=== PATIENT | female | born 1975 | race American Indian/Alaskan Native ===

== ENCOUNTER 2017-06-02 03:34 | Inpatient (IN) | payer MEDICARE ==
[2017-06-02] MEDS ORDERED: NITROSTAT SL ONE ×2 (04:11→07:03)
[2017-06-02] MEDS ORDERED: ASPIRIN PO ONE (04:14)
[2017-06-02 05:14] LABS: Basophils % (Auto) 0.7 % (0.0-1.8); Eosinophils # (Auto) 0.2 K/mm3 (0.0-0.4); Eosinophils % (Auto) 3.2 % (0.0-4.3); Hematocrit 35.6 % (30.3-42.9); Hemoglobin 11.9 gm/dl (10.1-14.3); Lymphocytes # (Auto) 1.8 K/mm3 (1.2-5.4); Lymphocytes % (Auto) 33.4 % (13.4-35.0); Mean Corpuscular HGB Conc 34 % (30-34); Mean Corpuscular Hemoglobin 32 pg (28-32); Mean Corpuscular Volume 94 fl (79-97); Monocytes # (Auto) 0.3 K/mm3 (0.0-0.8); Platelet Count 206 K/mm3 (140-440); Red Blood Count 3.79 M/mm3 (3.65-5.03); Red Cell Distribution Width 16.9 % (13.2-15.2)
[2017-06-02 05:19] LABS: INR 0.95 (0.87-1.13)
[2017-06-02 05:34] LABS: Calcium 8.7 mg/dL (8.4-10.2)
--- NOTE | 2017-06-02 06:26 | XRay Report ---
FINAL REPORT EXAM: XR CHEST ROUTINE 2V HISTORY: Chest Pain TECHNIQUE: PA and lateral views of the chest were submitted. FINDINGS: The heart size and mediastinum appear normal. The lungs are clear. Pleural fluid is not seen. The bones and soft tissues appear well maintained. IMPRESSION: Within normal limits.
--- NOTE | 2017-06-02 07:07 | Emergency Department Report ---
ED Chest Pain HPI - General Chief Complaint: Chest Pain Stated Complaint: CHEST PAIN Time Seen by Provider: 06/02/17 06:58 Source: patient, EMS Mode of arrival: Stretcher Limitations: No Limitations - History of Present Illness Initial Comments: Patient is 41 years old female history of end-stage renal disease on hemodialysis, dialyzed Wednesday, Wednesday, Wednesday. Patient stated that she did not missed any of her dialysis. She presented to the ER via EMS with a chief complaint of left-sided chest pain started 2 days ago getting worst today. Patient described her pain as a pressure, constant and not radiating. She denied any fever, no nausea or vomiting. MD Complaint: chest pain -: Gradual, week(s) Onset: during rest, during exertion Pain Location: left chest Pain Radiation: none Severity scale (0 -10): 9 Quality: pressure Consistency: constant - Related Data Allergies Allergy/AdvReac Type Severity Reaction Status Date / Time No Known Allergies Allergy Verified 06/02/17 07:29 Heart Score - HEART Score History: Moderately suspicious EKG: Non-specific Age: < 45 Risk factors: > 3 risk factors or hx of atherosclerotic disease Troponin: < normal limit HEART Score: 4 - Critical Actions Critical Actions: 4-6 pts:12-16.6% risk of adverse cardiac event. Should be admitted ED Review of Systems ROS: Stated complaint: CHEST PAIN Other details as noted in HPI Comment: All other systems reviewed and negative Constitutional: denies: chills, fever Respiratory: denies: cough, orthopnea, shortness of breath, SOB with exertion, SOB at rest Cardiovascular: chest pain. denies: palpitations, dyspnea on exertion, edema, syncope, paroxysmal nocturnal dyspnea Gastrointestinal: denies: abdominal pain, nausea, vomiting, diarrhea, constipation, hematemesis, melena, hematochezia Genitourinary: denies: urgency, frequency, hematuria Musculoskeletal: denies: back pain, joint swelling, arthralgia Neurological: denies: headache, weakness, numbness, paresthesias ED Past Medical Hx - Past Medical History Previous Medical History?: Yes Hx Hypertension: Yes Hx Diabetes: Yes Hx Renal Disease: Yes (dialysis M,W, F) - Surgical History Additional Surgical History: dialysis cath right leg - Social History Smoking Status: Never Smoker Substance Use Type: None ED Physical Exam - General Limitations: No Limitations General appearance: alert, in no apparent distress - Head Head exam: Present: atraumatic, normocephalic, normal inspection - Eye Eye exam: Present: normal appearance - ENT ENT exam: Present: normal exam, normal orophraynx, mucous membranes moist - Neck Neck exam: Present: normal inspection, full ROM. Absent: tenderness, meningismus, lymphadenopathy, thyromegaly - Respiratory Respiratory exam: Present: normal lung sounds bilaterally. Absent: respiratory distress, wheezes, rales, rhonchi, chest wall tenderness, decreased breath sounds, prolonged expiratory - Cardiovascular Cardiovascular Exam: Present: regular rate, normal rhythm, normal heart sounds - GI/Abdominal GI/Abdominal exam: Present: soft, normal bowel sounds. Absent: distended, tenderness, guarding, rebound, rigid, organomegaly, mass, bruit, pulsatile mass , hernia - Extremities Exam Extremities exam: Present: normal inspection, full ROM, normal capillary refill - Back Exam Back exam: Present: normal inspection, full ROM. Absent: CVA tenderness (L) - Neurological Exam Neurological exam: Present: alert, oriented X3, CN II-XII intact - Skin Skin exam: Present: warm, intact, normal color ED Course Vital Signs 06/02/17 06/02/17 06/02/17 04:01 04:06 04:16 Temperature 98.3 F Pulse Rate 75 78 80 Respiratory 14 13 17 Rate Blood Pressure 186/98 186/98 Blood Pressure 186/98 [Right] O2 Sat by Pulse 99 99 Oximetry 06/02/17 06/02/17 06/02/17 04:32 04:45 05:00 Temperature Pulse Rate 99 H 80 78 Respiratory 19 19 13 Rate Blood Pressure 186/99 193/101 Blood Pressure [Right] O2 Sat by Pulse 96 98 100 Oximetry 06/02/17 06/02/17 06/02/17 05:15 05:31 05:36 Temperature Pulse Rate 82 79 Respiratory 20 19 Rate Blood Pressure 193/101 168/73 Blood Pressure [Right] O2 Sat by Pulse 97 98 99 Oximetry 06/02/17 06/02/17 06/02/17 05:45 06:00 06:35 Temperature Pulse Rate 82 80 79 Respiratory 18 18 13 Rate Blood Pressure 168/73 179/87 168/84 Blood Pressure [Right] O2 Sat by Pulse 97 98 Oximetry 01/10/18 01/10/18 01/10/18 06:45 06:53 07:00 Temperature Pulse Rate 79 82 76 Respiratory 16 17 Rate Blood Pressure 185/94 186/103 Blood Pressure [Right] O2 Sat by Pulse 100 100 Oximetry 06/02/17 06/02/17 06/02/17 07:15 07:31 07:49 Temperature Pulse Rate 86 83 83 Respiratory 16 12 Rate Blood Pressure 185/94 159/85 159/85 Blood Pressure [Right] O2 Sat by Pulse 99 97 Oximetry - Reevaluation(s) Reevaluation #1: 06/02/17 10:08 After 2 nitroglycerin patient is still complaining of chest pain. I discuss the patient with [facility] [employer] with Dr. Morton, she agreed to admit the patient to service. ED Medical Decision Making - Lab Data Result diagrams: 06/02/17 04:14 06/02/17 04:14 - EKG Data -: EKG Interpreted by Ny EKG shows normal: sinus rhythm Rate: normal - EKG Data Interpretation: no acute changes - Radiology Data Radiology results: report reviewed Referring Physician: NOELLE VASQUEZ Patient Name: MIMI HASTINGS Date of : 1975 Sex: Female Report Date: 2017-06-02 Report Status: Finalized Findings [facility] [address] [place] [address] XRay Report Signed Patient: MIMI HASTINGS MR#: [id number] : 1975 Acct:[id number] Age/Sex: 41 / F ADM Date: 06/02/17 Loc: ED Attending Dr: Ordering Physician: NOELLE VASQUEZ MD Date of Service: 06/02/17 Procedure(s): XR chest routine 2V Accession Number(s): [id number] cc: NOELLE VASQUEZ MD Fluoro Time In Minutes: FINAL REPORT EXAM: XR CHEST ROUTINE 2V HISTORY: Chest Pain TECHNIQUE: PA and lateral views of the chest were submitted. FINDINGS: The heart size and mediastinum appear normal. The lungs are clear. Pleural fluid is not seen. The bones and soft tissues appear well maintained. IMPRESSION: Within normal limits. Transcribed By: RB Dictated By: NAIMA LYLES MD Electronically Authenticated By: NAIMA LYLES MD Signed Date/Time: 06/02/17221 DD/ 1 TD/TT: 06/02/17221 Critical care attestation.: If time is entered above; I have spent that time in minutes in the direct care of this critically ill patient, excluding procedure time. ED Disposition Clinical Impression: Chest pain, End stage renal disease Disposition: OP ADMIT IP TO THIS HOSP Is pt being admited?: Yes Condition: Stable Instructions: Chest Pain (ED) Referrals: NOELLE CHASE MD [Primary Care Provider] - 3-5 Days
[2017-06-02] MEDS ORDERED: APRESOLINE ONE (13:56)
--- NOTE | 2017-06-02 13:58 | History and Physical Report ---
History of Present Illness Date of examination: 06/02/17 Date of admission: 06/02/17 Chief complaint: cp History of present illness: Patient is 41 years old female history of end-stage renal disease on hemodialysis, dialyzed Wednesday, Wednesday, Wednesday, hypertension and diabetes mellitus who presents with chief complaint of chest pain. Patient stated that she did not missed any of her dialysis. She presented to the ER via EMS with a chief complaint of left-sided chest pain started 2 days ago , progressively worsening today. Patient described her pain as a pressure, constant and not radiating. She denied any fever, no nausea or vomiting. Patient denies any cough or cold-like symptoms. Patient denies any shortness of breath. Patient denies any previous cardiac workup. Past History Past Medical History: diabetes, ESRD, hypertension Past Surgical History: No surgical history Social history: no significant social history Family history: no significant family history Medications and Allergies Allergies Allergy/AdvReac Type Severity Reaction Status Date / Time No Known Allergies Allergy Verified 06/02/17 07:29 Review of Systems All systems: negative Exam - Constitutional Vitals: Temp Pulse Resp BP Pulse Ox 98.3 F 83 12 159/85 97 06/02/17 04:01 06/02/17 07:49 06/02/17 07:31 06/02/17 07:49 06/02/17 07:31 General appearance: Present: no acute distress, well-nourished - EENT Eyes: Present: PERRL ENT: hearing intact, clear oral mucosa - Neck Neck: Present: supple, normal ROM - Respiratory Respiratory effort: normal Respiratory: bilateral: CTA - Cardiovascular Heart Sounds: Present: S1 & S2. Absent: rub, click - Extremities Extremities: pulses symmetrical, No edema Peripheral Pulses: within normal limits - Abdominal General gastrointestinal: Present: soft, non-tender, non-distended, normal bowel sounds Female genitourinary: Present: normal - Integumentary Integumentary: Present: clear, warm, dry - Musculoskeletal Musculoskeletal: gait normal, strength equal bilaterally - Psychiatric Psychiatric: appropriate mood/affect, intact judgment & insight - Neurologic Neurologic: CNII-XII intact, moves all extremities Results - Labs CBC & Chem 7: 06/02/17 04:14 06/02/17 04:14 Labs: Laboratory Last Values WBC 5.3 K/mm3 (4.5-11.0) 06/02/17 04:14 RBC 3.79 M/mm3 (3.65-5.03) 06/02/17 04:14 Hgb 11.9 gm/dl (10.1-14.3) 06/02/17 04:14 Hct 35.6 % (30.3-42.9) 06/02/17 04:14 MCV 94 fl (79-97) 06/02/17 04:14 MCH 32 pg (28-32) 06/02/17 04:14 MCHC 34 % (30-34) 06/02/17 04:14 RDW 16.9 % (13.2-15.2) H 06/02/17 04:14 Plt Count 206 K/mm3 (140-440) 06/02/17 04:14 Lymph % (Auto) 33.4 % (13.4-35.0) 06/02/17 04:14 Woodson % (Auto) 6.0 % (0.0-7.3) 06/02/17 04:14 Eos % (Auto) 3.2 % (0.0-4.3) 06/02/17 04:14 Baso % (Auto) 0.7 % (0.0-1.8) 06/02/17 04:14 Lymph # 1.8 K/mm3 (1.2-5.4) 06/02/17 04:14 Woodson # 0.3 K/mm3 (0.0-0.8) 06/02/17 04:14 Eos # 0.2 K/mm3 (0.0-0.4) 06/02/17 04:14 Baso # 0.0 K/mm3 (0.0-0.1) 06/02/17 04:14 Seg Neutrophils % 56.7 % (40.0-70.0) 06/02/17 04:14 Seg Neutrophils # 3.0 K/mm3 (1.8-7.7) 06/02/17 04:14 PT 13.2 Sec. (12.2-14.9) 06/02/17 04:11 INR 0.95 (0.87-1.13) 06/02/17 04:11 Sodium 140 mmol/L (137-145) 06/02/17 04:14 Potassium 5.5 mmol/L (3.6-5.0) H 06/02/17 04:14 Chloride 102.1 mmol/L (98-107) 06/02/17 04:14 Carbon Dioxide 21 mmol/L (22-30) L 06/02/17 04:14 Anion Gap 22 mmol/L 06/02/17 04:14 BUN 60 mg/dL (7-17) H 06/02/17 04:14 Creatinine 8.3 mg/dL (0.7-1.2) H 06/02/17 04:14 Estimated GFR 6 ml/min 06/02/17 04:14 BUN/Creatinine Ratio 7 % 06/02/17 04:14 Glucose 207 mg/dL (65-100) H 06/02/17 04:14 Calcium 8.7 mg/dL (8.4-10.2) 06/02/17 04:14 Troponin T 0.012 ng/mL (0.00-0.029) 06/02/17 09:42 HCG, Qual Negative (Negative) 06/02/17 04:11 Assessment and Plan Assessment and plan: Chest pain. Patient will be placed on a chest pain protocol. We will follow cardiac isoenzymes and EKG. Patient will be scheduled for stress thallium in the morning. Consider cardiology consultation. Hypertension. Resume antihypertensive medications. ESRD. Continue her scheduled hemodialysis. Nephrology consultation. Diabetes mellitus type 2. Continue Accu-Cheks and sliding scale.
[2017-06-02] MEDS ORDERED: SODIUM CHLORIDE FLUSH SYRINGE 10 ML IV PRN (13:59)
[2017-06-02] MEDS ORDERED: DULCOLAX PR PRN (13:59)
[2017-06-02] MEDS ORDERED: MILK OF MAGNESIA PO PRN (13:59)
[2017-06-02] MEDS ORDERED: D50W (25GM) Syringe IV PRN (13:59)
[2017-06-02] MEDS ORDERED: ZOFRAN IV PRN (13:59)
[2017-06-02] MEDS ORDERED: APRESOLINE IV ONE (14:02)
--- NOTE | 2017-06-02 14:54 | Consultation ---
History of Present Illness Consult date: 06/02/17 Requesting physician: NAYELI BARRAZA Consult reason: chest pain History of present illness: The patient is 41 year old female with a past medical history significant for ESRD on HD (MWF), MRSA vertebral osteo/diskitis, HTN, HLP and DM. She is previously unknown to our practice. She presented with c/o chest pain, headache and high BPs for 1 week prior to arrival. She describes her chest pain as an intermittent, left-sided, nonexertional pressure which radiates down into her left arm. The pain lasts for 5-10 minutes per episode. Pt denies any clear aggravating or alleviating factors. She denies any palpitations, SOB, n/v, diaphoresis, dizziness or syncope. She reports compliance with her medications ( including lopressor) and dialysis schedule. She denies missing any dialysis but she did not undergo dialysis today as scheduled due to her chest pain. She denies any prior cardiac issues. She reports that her sister (who is now ) suffered a heart attack in her 40s. Following arrival, BPs noted to be significantly elevated - BPs on evaluation are 250s/120s. Of note, pt reports recent hospitalization at [facility] in 03/2017 for accelerated HTN and chest pain. She underwent echo 04/01/2017 which showed normal LV size, mild LVH, LVEF hyperdynamic, no significant valvular disease. Past History Past Medical History: diabetes, dialysis, ESRD, hypertension, hyperlipidemia Past Surgical History: Other (HD access) Social history: no significant social history Family history: no significant family history Medications and Allergies Allergies Allergy/AdvReac Type Severity Reaction Status Date / Time No Known Allergies Allergy Verified 06/02/17 07:29 Active Meds: Active Medications Acetaminophen (Tylenol) 650 mg PO Q4H PRN PRN Reason: Pain MILD(1-3)/Fever >100.5/CARDENAS Bisacodyl (Dulcolax) 10 mg IA QDAY PRN PRN Reason: Constipation unrelieved by MOM Dextrose (D50w (25gm) Syringe) 50 ml IV PRN PRN PRN Reason: Hypoglycemia Enoxaparin Sodium (Lovenox) 30 mg SUB-Q QDAY ANTHONY Magnesium Hydroxide (Milk Of Magnesia) 30 ml PO Q4H PRN PRN Reason: Constipation Ondansetron HCl (Zofran) 4 mg IV Q8H PRN PRN Reason: N/V unrelieved by Reglan Sodium Chloride (Sodium Chloride Flush Syringe 10 Ml) 10 ml IV PRN PRN PRN Reason: LINE FLUSH Review of Systems Constitutional: no weight loss, no weight gain, no fever, no chills, no sweats Ears, nose, mouth and throat: no ear pain, no nose pain, no sinus pressure, no sinus pain Cardiovascular: chest pain, high blood pressure, no orthopnea, no palpitations, no rapid/irregular heart beat, no edema, no syncope, no lightheadedness, no shortness of breath, no dyspnea on exertion, no leg edema Respiratory: no cough, no shortness of breath, no dyspnea on exertion, no congestion, no wheezing, no pain on inspiration Gastrointestinal: no abdominal pain, no nausea, no vomiting, no diarrhea, no constipation, no change in bowel habits Genitourinary Female: no pelvic pain, no flank pain, no dysuria, no urinary frequency, no urgency Musculoskeletal: no neck stiffness, no neck pain, no low back pain, no shooting leg pain, no leg numbness/tingling, no redness of joints Integumentary: no rash, no pruritis, no redness, no sores, no wounds Neurological: headaches, no head injury, no paralysis, no weakness, no parathesias, no numbness, no tingling, no seizures, no syncope Psychiatric: no anxiety Endocrine: no cold intolerance, no heat intolerance Hematologic/Lymphatic: no easy bruising, no easy bleeding, no lymphadenopathy Allergic/Immunologic: no urticaria, no wheezing, no persistent infections Physical Examination Vital Signs Temp Pulse Resp BP Pulse Ox 98.3 F 75 14 186/98 99 06/02/17 04:01 06/02/17 04:01 06/02/17 04:01 06/02/17 04:01 06/02/17 04:01 General appearance: other (anxious ) HEENT: Positive: PERRL, Normocephaly, Mucus Membranes Moist Neck: Positive: neck supple, trachea midline Cardiac: Positive: Reg Rate and Rhythm, S1/S2, Systolic Murmur Lungs: Positive: clear to auscultation Neuro: Positive: Grossly Intact, Cranial Nerve 2-12 Intact Abdomen: Positive: Soft. Negative: Tender Skin: Positive: Clear. Negative: Rash, Wound Musculoskeletal: No Fluid Collection, No Pain, Normal Range of Motion Extremities: Absent: edema Results 06/02/17 04:14 06/02/17 04:14 Coagulation 06/02/17 Range/Units 04:11 PT 13.2 (12.2-14.9) Sec. INR 0.95 (0.87-1.13) CBC 06/02/17 Range/Units 04:14 WBC 5.3 (4.5-11.0) K/mm3 RBC 3.79 (3.65-5.03) M/mm3 Hgb 11.9 (10.1-14.3) gm/dl Hct 35.6 (30.3-42.9) % Plt Count 206 (140-440) K/mm3 Lymph # 1.8 (1.2-5.4) K/mm3 Avery # 0.3 (0.0-0.8) K/mm3 Eos # 0.2 (0.0-0.4) K/mm3 Baso # 0.0 (0.0-0.1) K/mm3 Comprehensive Metabolic Panel 06/02/17 Range/Units 04:14 Sodium 140 (137-145) mmol/L Potassium 5.5 H (3.6-5.0) mmol/L Chloride 102.1 (98-107) mmol/L Carbon Dioxide 21 L (22-30) mmol/L BUN 60 H (7-17) mg/dL Creatinine 8.3 H (0.7-1.2) mg/dL Glucose 207 H (65-100) mg/dL Calcium 8.7 (8.4-10.2) mg/dL - Imaging and Cardiology Echo: report reviewed (at [facility] in 03/2017 for accelerated HTN and chest pain. She underwent echo 04/01/2017 which showed normal LV size, mild LVH, LVEF hyperdynamic, no significant valvular disease. ) EKG: report reviewed, image reviewed EKG interpretations - Telemetry EKG Rhythm: Sinus Rhythm - EKG Sinus rhythms and dysrhythmias: sinus rhythm Chamber hypertrophy or enlargement: left ventricular hypertro Assessment and Plan Assessment: Chest pain - trop negative for AMI x 2 sets; ECG with no acute ischemic changes Hypertensive urgency ESRD on HD HLP DM H/o MRSA vertebral osteo/diskitis Plan: No indication for repeat echo at this time given recent echo at [facility] 03/2017. Resume home lopressor and lisinopril. Obtain additional set of Shin. Plan for lexiscan MPI stress test in AM pending Shin remain negative for AMI and pt remains clinically stable overnight. Assessment and plan reviewed with pt and pt's niece at bedside. The patient has been seen in conjunction with Dr. Bejarano who agrees with the assessment and plan of care.
[2017-06-02] MEDS ORDERED: LOPRESSOR ONE (15:34)
[2017-06-02] MEDS: LOPRESSOR PO SCH ×2 (15:47→22:10)
[2017-06-02] MEDS ORDERED: TRIDIL DRIP 50MG/250ML 50 MG/250 ML BOTTLE IV SCH (16:00)
[2017-06-02] MEDS: TYLENOL PO PRN ×2 (18:18→23:00)
[2017-06-02] MEDS ORDERED: TYLENOL ONE (18:22)
[2017-06-02] MEDS ORDERED: NACL 0.9 (PRIMING MACHINE ONLY DIALYSIS) MC ONE (19:08)
[2017-06-02] MEDS ORDERED: HEPARIN ONE (21:06)
[2017-06-02] MEDS: ZESTRIL PO SCH (22:10)
[2017-06-03] MEDS: TYLENOL PO PRN (06:26)
[2017-06-03 07:36] LABS: Basophils % (Auto) 0.6 % (0.0-1.8); Eosinophils # (Auto) 0.1 K/mm3 (0.0-0.4); Eosinophils % (Auto) 3.4 % (0.0-4.3); Hematocrit 37.2 % (30.3-42.9); Hemoglobin 12.8 gm/dl (10.1-14.3); Lymphocytes # (Auto) 1.1 K/mm3 (1.2-5.4); Lymphocytes % (Auto) 26.8 % (13.4-35.0); Mean Corpuscular HGB Conc 34 % (30-34); Mean Corpuscular Hemoglobin 32 pg (28-32); Mean Corpuscular Volume 93 fl (79-97); Monocytes # (Auto) 0.3 K/mm3 (0.0-0.8); Platelet Count 200 K/mm3 (140-440); Red Blood Count 3.98 M/mm3 (3.65-5.03); Red Cell Distribution Width 17.5 % (13.2-15.2)
[2017-06-03 08:00] LABS: Chol/HDL Ratio 2.63 %
[2017-06-03 08:04] LABS: Creatine Kinase MB < 1.0 ng/mL (0.0-4.0)
--- NOTE | 2017-06-03 09:07 | Consultation ---
History of Present Illness - Reason for Consult Consult date: 06/03/17 end stage renal disease - History of Present Illness History obtained from medical records - patient not in room at time of visit. Patient is 41 years old female with ESRD on HD MWF, hypertension and DM who presented to the ED with a two day history of chest pain. P She denied any fever, no nausea or vomiting. Patient denied any shortness of breath. Past History Past Medical History: diabetes, dialysis, ESRD, hypertension, hyperlipidemia Past Surgical History: Other (HD access) Social history: no significant social history Family history: no significant family history Medications and Allergies Allergies Allergy/AdvReac Type Severity Reaction Status Date / Time No Known Allergies Allergy Verified 06/02/17 07:29 Home Medications Medication Instructions Recorded Confirmed Last Taken Type Potassium Chloride 20 meq PO DAILY 06/02/17 06/02/17 06/01/17 History Linaclotide [Linzess] 145 mg PO DAILY #30 capsule 06/03/17 Unknown Rx Lisinopril [Zestril TAB] 20 mg PO BID #60 tablet 06/03/17 Unknown Rx Metoprolol [Lopressor TAB] 100 mg PO BID #60 tablet 06/03/17 Unknown Rx Renvela 800 mg PO [facility] #30 06/03/17 Unknown Rx Active Meds: Active Medications Acetaminophen (Tylenol) 650 mg PO Q4H PRN PRN Reason: Pain MILD(1-3)/Fever >100.5/CARDENAS Last Admin: 06/03/17 06:26 Dose: 650 mg Bisacodyl (Dulcolax) 10 mg NC QDAY PRN PRN Reason: Constipation unrelieved by MOM Dextrose (D50w (25gm) Syringe) 50 ml IV PRN PRN PRN Reason: Hypoglycemia Enoxaparin Sodium (Lovenox) 30 mg SUB-Q QDAY ANTHONY Nitroglycerin/Dextrose (Tridil Drip 50mg/250ml) 50 mg in 250 mls @ 3 mls/hr IV TITR ANTHONY; 10 MCG/MIN PRN Reason: Protocol Lisinopril (Zestril) 20 mg PO BID [facility] Last Admin: 06/02/17 22:10 Dose: 20 mg Magnesium Hydroxide (Milk Of Magnesia) 30 ml PO Q4H PRN PRN Reason: Constipation Metoprolol Tartrate (Lopressor) 50 mg PO BID ANTHONY Last Admin: 06/02/17 22:10 Dose: 50 mg Ondansetron HCl (Zofran) 4 mg IV Q8H PRN PRN Reason: N/V unrelieved by Reglan Regadenoson (Lexiscan) 0.4 mg IV ONCE NR Stop: 06/03/17 10:00 Sodium Chloride (Sodium Chloride Flush Syringe 10 Ml) 10 ml IV PRN PRN PRN Reason: LINE FLUSH Exam - Vital Signs Vital signs: Vital Signs Temp Pulse Resp BP Pulse Ox 98.3 F 75 14 186/98 99 06/02/17 04:01 06/02/17 04:01 06/02/17 04:01 06/02/17 04:01 06/02/17 04:01 - Physical Exam Narrative exam: Deferred - patient off the floor at time of visit Results - Lab Results 06/03/17 07:05 06/03/17 07:05 Most recent lab results Calcium 9.0 mg/dL (8.4-10.2) 06/03/17 07:05 Assessment and Plan Impression: * End stage renal disease on HD * Chest pain * Accelerated hypertension Plan: * Patient is s/p hemodialysis yesterday; continue MWF schedule * UF as tolerated * Cardiology following - work up in progress * Continue antiHTN medications - control improved s/p dialysis yesterday * Renal diet
[2017-06-03] MEDS ORDERED: LEXISCAN IV NR (09:30)
[2017-06-03] MEDS ORDERED: LOVENOX SUB-Q SCH ×2 (10:00)
--- NOTE | 2017-06-03 11:48 | Discharge Summary ---
Providers - Providers Date of Admission: 06/02/17 13:59 Date of discharge: 06/03/17 Attending physician: ANNABEL SOSA 06/02/17 Consult to Cardiac Rehabilitation [CONS] Routine Reason For Exam: Phase I 06/02/17 13:59 Consult to Cardiology [CONS] Routine Consulting Provider: BERTHA JAQUEZ Reason For Exam: chest apin 06/02/17 14:41 Consult to Physician [CONS] Routine Consulting Provider: CAROLINA ROSARIO Reason For Exam: ESRD Place consult to:: NEPHROLOGY Notified:: Y Was contact made?: Yes If yes, spoke with:: MAURILIO Time called:: 15:00 Primary care physician: NOELLE CHASE Hospitalization Reason for admission: cp Condition: Stable Hospital course: The patient is 41 year old female with a past medical history significant for ESRD on HD (MWF), MRSA vertebral osteo/diskitis, HTN, HLP and DM who presented with c/o chest pain, headache and high BPs for 1 week prior to arrival. She described her chest pain as an intermittent, left-sided, nonexertional pressure which radiated down into her left arm. Pt denied any clear aggravating or alleviating factors. She denies any palpitations, SOB, n/v, diaphoresis, dizziness or syncope. She reports compliance with her medications (including lopressor) and dialysis schedule. She denied missing any dialysis. She denied any prior cardiac issues. She reports that her sister (who is now ) suffered a heart attack in her 40s. Following arrival, BPs noted to be significantly elevated - BPs on evaluation are 250s/120s. The patient was admitted with diagnosis of chest pain and accelerated hypertension. Pt. reports recent hospitalization at [facility] in 03/2017 for accelerated HTN and chest pain. She underwent echo 04/01/2017 which showed normal LV size, mild LVH, LVEF hyperdynamic, no significant valvular disease. Patient's cardiac isoenzymes were negative and ECG revealed no acute ischemic changes. Cardiology recommended he echo given her recent echo on 03/2017. MPI stress test was found be negative. Cardiology saw the patient in consultation. Patient was started back on a home medications and blood pressure stabilized. Patient is felt to receive maximal hospital benefit and will be discharged home. Dedicated discharge time 32 minutes. Disposition: - TO HOME OR SELFCARE Time spent for discharge: 32 - Discharge Diagnoses (1) Accelerated hypertension Status: Acute (2) Chest pain Status: Acute (3) End stage renal disease Status: Acute Core Measure Documentation - Palliative Care Palliative Care/ Comfort Measures: Not Applicable - Core Measures Any of the following diagnoses?: none Exam - Constitutional Vitals: Temp Pulse Resp BP Pulse Ox 97.5 F L 100 H 20 150/83 95 06/03/17 07:20 06/03/17 09:09 06/03/17 07:20 06/03/17 09:09 06/03/17 07:20 General appearance: Present: no acute distress, well-nourished - EENT Eyes: Present: PERRL ENT: hearing intact, clear oral mucosa - Neck Neck: Present: supple, normal ROM - Respiratory Respiratory effort: normal Respiratory: bilateral: CTA - Cardiovascular Heart Sounds: Present: S1 & S2. Absent: rub, click - Extremities Extremities: pulses symmetrical, No edema Peripheral Pulses: within normal limits - Abdominal General gastrointestinal: Present: soft, non-tender, non-distended, normal bowel sounds Female genitourinary: Present: normal - Integumentary Integumentary: Present: clear, warm, dry - Musculoskeletal Musculoskeletal: gait normal, strength equal bilaterally - Psychiatric Psychiatric: appropriate mood/affect, intact judgment & insight - Neurologic Neurologic: CNII-XII intact, moves all extremities Plan Activity: no restrictions Weight Bearing Status: Full Weight Bearing Diet: low fat, low cholesterol, low salt Follow up with: NOELLE CHASE MD [Primary Care Provider] - 3-5 Days GILMA MOLINA MD [Staff Physician] - 7 Days Prescriptions: Linaclotide [Linzess] 145 mg PO DAILY #30 capsule Lisinopril [Zestril TAB] 20 mg PO BID #60 tablet Metoprolol [Lopressor TAB] 100 mg PO BID #60 tablet Renvela 800 mg PO [facility] #30
[2017-06-03] MEDS: LOPRESSOR PO SCH (12:48)
[2017-06-03] MEDS: ZESTRIL PO SCH (12:48)
[2017-06-03 13:24] VITALS: BP 160/83
--- NOTE | 2017-06-03 13:52 | Progress Note ---
Assessment and Plan Assessment: Chest pain - currently resolved; trop negative for AMI x 2 sets; ECG with no acute ischemic changes Hypertensive urgency - improving ESRD on HD HLP DM H/o MRSA vertebral osteo/diskitis Plan: S/p lexiscan MPI stress test this AM which was negative for ischemia. No indication for repeat echo at this time given recent echo at [facility] 03/2017. Optimize anti-hypertensive regimen - increase Lopressor. Currently stable cardiac status. Pt may discharge home from cardiology standpoint. Recommend follow up in our office with Lila Caballero NP, within 1-2 weeks of hospital discharge ([phone]). Assessment and plan reviewed with pt at bedside. The patient has been seen in conjunction with Dr. Bejarano who agrees with the assessment and plan of care. Subjective Date of service: 06/03/17 Principal diagnosis: HTN; chest pain Interval history: pt for stress test today. no current cardiac complaints. Objective Last Vital Signs Temp 98.7 F 06/03/17 12:56 Pulse 79 06/03/17 12:56 Resp 20 06/03/17 12:56 BP 160/83 06/03/17 12:56 Pulse Ox 98 06/03/17 12:56 - Physical Examination General: No Apparent Distress HEENT: Positive: PERRL, Normocephaly, Mucus Membranes Moist Neck: Positive: neck supple, trachea midline Cardiac: Positive: Reg Rate and Rhythm, S1/S2, Systolic Murmur Lungs: Positive: clear to auscultation Neuro: Positive: Grossly Intact, Cranial Nerve 2-12 Intact Abdomen: Positive: Soft. Negative: Tender Skin: Positive: Clear. Negative: Rash, Wound Musculoskeletal: No Fluid Collection, No Pain, Normal Range of Motion Extremities: Absent: edema - Labs and Meds Cardiac Enzymes 06/03/17 Range/Units 07:05 CK-MB (CK-2) < 1.0 (0.0-4.0) ng/mL Lipids 06/03/17 Range/Units 07:05 Triglycerides 89 (2-149) mg/dL Cholesterol 153 (50-199) mg/dL HDL Cholesterol 58 (40-59) mg/dL Cholesterol/HDL Ratio 2.63 % CBC 06/03/17 Range/Units 07:05 WBC 4.1 L (4.5-11.0) K/mm3 RBC 3.98 (3.65-5.03) M/mm3 Hgb 12.8 (10.1-14.3) gm/dl Hct 37.2 (30.3-42.9) % Plt Count 200 (140-440) K/mm3 Lymph # 1.1 L (1.2-5.4) K/mm3 Crosby # 0.3 (0.0-0.8) K/mm3 Eos # 0.1 (0.0-0.4) K/mm3 Baso # 0.0 (0.0-0.1) K/mm3 Comprehensive Metabolic Panel 06/03/17 Range/Units 07:05 Sodium 143 (137-145) mmol/L Potassium 5.0 (3.6-5.0) mmol/L Chloride 100.9 (98-107) mmol/L Carbon Dioxide 26 (22-30) mmol/L BUN 34 H (7-17) mg/dL Creatinine 5.8 H (0.7-1.2) mg/dL Glucose 125 H (65-100) mg/dL Calcium 9.0 (8.4-10.2) mg/dL - Imaging and Cardiology EKG: report reviewed, image reviewed Echo: report reviewed (at [facility] in 03/2017 for accelerated HTN and chest pain. She underwent echo 04/01/2017 which showed normal LV size, mild LVH, LVEF hyperdynamic, no significant valvular disease. ) - EKG Sinus rhythms and dysrhythmias: sinus rhythm Chamber hypertrophy or enlargement: left ventricular hypertro
[2017-06-03] MEDS ORDERED: LOPRESSOR PO SCH (16:00)
--- NOTE | 2017-06-03 19:57 | Treadmill Report ---
NUCLEAR PERFUSION SCAN REFERRING PHYSICIAN: Hospitalist service. PROTOCOL: The patient was brought to the stress lab in post-absorptive state, given 10 mCi of technetium 99m at rest. The patient underwent rest imaging. The patient underwent Lexiscan stress test. At peak stress, the patient was given 26 mCi of technetium. Shortly thereafter, the patient underwent stress imaging. Raw imaging reveals mild GI artifact. No significant motion artifact. SPECT imaging examined carefully in horizontal long axis, vertical long axis, and short axis views. There is normal homogenous uptake of radioisotope in all reported segments. No evidence of a significant fixed or reversible perfusion defects suggestive of prior infarction or ischemia. Gated wall motion reveals normal systolic thickening, calculated ejection fraction of 55%. No TID. CONCLUSIONS: 1. Normal myocardial perfusion scan without evidence of active ischemia or prior infarction. 2. Normal left ventricular systolic performance without evidence of transient ischemic dilatation or stress-induced segmental wall motion abnormalities. JOB# [id number] EDMUND/WANDA
== END 2017-06-03 17:38 | disposition home or self-care (01) | DRG 304 ==
LOC: ED 03:34 → 3A 13:59
PROVIDERS: ADMIT Hospitalist; ATTEND Hospitalist
PROC: 5A1D70Z Performance of Urinary Filtration, Intermittent, Less than 6 Hours Per Day (ICD-10-PCS; principal; 2017-06-02)
DX: I16.0 Hypertensive urgency (principal); N18.6 End stage renal disease; R07.9 Chest pain, unspecified; E78.5 Hyperlipidemia, unspecified; E11.22 Type 2 diabetes mellitus with diabetic chronic kidney disease; I12.0 Hypertensive chronic kidney disease with stage 5 chronic kidney disease or end stage renal disease; Z99.2 Dependence on renal dialysis
CPT/HCPCS: 36415; 71046; 78452; 80048; 80061; 82550; 82553; 82962; 84484; 84703; 85025; 85610; 93005; 93010; 93017; 96374; A9502; J0360; J1644; J1650; J2785; J7030

== ENCOUNTER 2022-01-09 11:59 | Inpatient (IN) | payer MEDICARE ==
--- NOTE | 2022-01-09 12:44 | Emergency Department Report ---
HPI - HPI HPI: Room 19 Patient is a 46-year-old female present with chief complaint of chest pain. Patient states her pain started last night with substernal chest pain that was sharp and intermittent in nature. Patient admits to shortness of breath and diaphoresis with her pain but denies nausea/vomiting. Patient denies history of cough. Patient has a history end-stage renal disease and normally goes every Mo wednesday however her last dialysis occurred 01/05/2022 <POLLY CORTEZ - Last Filed: 01/09/22 14:19> <AYAH BONDS - Last Filed: 01/09/22 18:13> - General Chief Complaint: Chest Pain Time Seen by Provider: 01/09/22 12:27 ED Past Medical Hx - Past Medical History Hx Hypertension: Yes Hx Diabetes: Yes Hx Renal Disease: Yes (dialysis M,W, F) - Surgical History Additional Surgical History: dialysis cath right leg, left upper extremity fistula - Family History Family history: no significant - Social History Smoking Status: Never Smoker Substance Use Type: None (Denies illicit drug use) <POLLY CORTEZ - Last Filed: 01/09/22 14:19> <AYAH BONDS - Last Filed: 01/09/22 18:13> - Medications Home Medications: Home Medications Medication Instructions Recorded Confirmed Last Taken Type Potassium Chloride 20 meq PO DAILY 06/02/17 06/02/17 06/01/17 History Linaclotide [Linzess] 145 mg PO DAILY #30 capsule 06/03/17 Unknown Rx Metoprolol [Lopressor TAB] 100 mg PO BID #60 tablet 06/03/17 Unknown Rx Renvela 800 mg PO [facility] #30 06/03/17 Unknown Rx lisinopriL [Zestril TAB] 20 mg PO BID #60 tablet 06/03/17 Unknown Rx ED Review of Systems ROS: Stated complaint: DIALYSIS/CHEST PAIN Other details as noted in HPI Constitutional: diaphoresis Eyes: denies: eye pain ENT: denies: throat pain Respiratory: shortness of breath Cardiovascular: chest pain Endocrine: no symptoms reported Gastrointestinal: denies: nausea, vomiting Genitourinary: denies: abnormal menses Musculoskeletal: denies: back pain Neurological: denies: headache <ALIM,POLLY K - Last Filed: 01/09/22 14:19> ROS: Stated complaint: DIALYSIS/CHEST PAIN Other details as noted in HPI <AYAH BONDS - Last Filed: 01/09/22 18:13> Physical Exam - Physical Exam Vital Signs: Vital Signs 01/09/22 12:00 Temperature 98.2 F Pulse Rate 69 Respiratory 18 Rate Blood Pressure 142/86 [Right] O2 Sat by Pulse 98 Oximetry Physical Exam: GENERAL: The patient is well-developed well-nourished female lying on stretcher not appearing to be in acute distress. [] HEENT: Normocephalic. Atraumatic. Patient has moist mucous membranes. NECK: Supple. Trachea midline CHEST/LUNGS: Clear to auscultation. There is no respiratory distress noted. HEART/CARDIOVASCULAR: Regular. There is no tachycardia. There is no gallop rub or murmur. ABDOMEN: Abdomen is soft, nontender. Patient has normal bowel sounds. There is no abdominal distention. SKIN: There is no rash. There is no edema. There is no diaphoresis. NEURO: The patient is awake, alert, and oriented. The patient is cooperative. The patient has no focal neurologic deficits. The patient has normal speech. GCS 15 MUSCULOSKELETAL: There is no evidence of acute injury. <POLLY CORTEZ K - Last Filed: 01/09/22 14:19> - Physical Exam Vital Signs: Vital Signs 01/09/22 01/09/22 01/09/22 12:00 14:26 14:30 Temperature 98.2 F Pulse Rate 69 66 65 Respiratory 18 17 15 Rate Blood Pressure 140/58 Blood Pressure 142/86 [Right] O2 Sat by Pulse 98 89 98 Oximetry 01/09/22 15:00 Temperature Pulse Rate 67 Respiratory 12 Rate Blood Pressure 138/60 Blood Pressure [Right] O2 Sat by Pulse 89 Oximetry <AYAH BONDS - Last Filed: 01/09/22 18:13> ED Course Vital Signs 01/09/22 12:00 Temperature 98.2 F Pulse Rate 69 Respiratory 18 Rate Blood Pressure 142/86 [Right] O2 Sat by Pulse 98 Oximetry <POLLY CORTEZ K - Last Filed: 01/09/22 14:19> Vital Signs 01/09/22 01/09/22 01/09/22 12:00 14:26 14:30 Temperature 98.2 F Pulse Rate 69 66 65 Respiratory 18 17 15 Rate Blood Pressure 140/58 Blood Pressure 142/86 [Right] O2 Sat by Pulse 98 89 98 Oximetry 01/09/22 15:00 Temperature Pulse Rate 67 Respiratory 12 Rate Blood Pressure 138/60 Blood Pressure [Right] O2 Sat by Pulse 89 Oximetry - Consultations Consultation #1: 01/09/22 18:[address] Ines Mcdonald consulted and will manage dialysis needs <AYAH BONDS - Last Filed: 01/09/22 18:13> ED Medical Decision Making - EKG Data -: EKG Interpreted by Me EKG shows normal: sinus rhythm Rate: normal - EKG Data When compared to previous EKG there are: changes noted Interpretation: nonspecific ST-T wave faith (New T wave inversion in lead aVL, flattened T wave in lead I compared to previous EKG dated 06/02/2017) - Differential Diagnosis ACS, volume overload, CHF <POLLY CORTEZ - Last Filed: 01/09/22 14:19> - Lab Data Result diagrams: 01/09/22 14:43 01/09/22 14:43 - Radiology Data Radiology results: report reviewed CHEST 1 VIEW 01/09/2022 2:34 PM INDICATION / CLINICAL INFORMATION: Chest pain. COMPARISON: 06/02/17. FINDINGS: SUPPORT DEVICES: None. HEART / MEDIASTINUM: There is mild generalized enlargement of the cardiopericardial silhouette, probably unchanged allowing for differences in technique. The aorta is normal in caliber. Pulmonary vasculature is normal for technique. LUNGS / PLEURA: There is mild patchy parenchymal disease in the left midlung and possibly in the lung bases. No pleural effusion. No pneumothorax. ADDITIONAL FINDINGS: No significant additional findings. IMPRESSION: Mild patchy parenchymal disease in the left midlung and possibly in the lung bases. Differential diagnosis includes pneumonia and asymmetric edema. - Medical Decision Making Patient signed out to me to follow-up labs, x-ray, dispo with possible admission for missed dialysis. Patient states she currently takes 3 L of home oxygen. She is currently on 4 L satting 91%. Chest x-ray differential includes pneumonia versus pulmonary edema. Pulmonary edema highly suspected given that patient has missed her dialysis session and lacks fever or leukocytosis. Patient is complaining of chest pain with mildly elevated troponin which may be secondary to underlying renal disease. Repeat troponin ordered. Patient had a negative stress test here May 2017. Case was discussed with on-call tobacco blender Dr. Mcdonald since patient cannot recall her primary tobacco blender name. Patient will likely receive dialysis tomorrow. Repeat troponin pending. Hospitalist to admit <AYAH BONDS - Last Filed: 01/09/22 18:13> Critical care attestation.: If time is entered above; I have spent that time in minutes in the direct care of this critically ill patient, excluding procedure time. <POLLY CORTEZ - Last Filed: 01/09/22 14:19> Critical care attestation.: If time is entered above; I have spent that time in minutes in the direct care of this critically ill patient, excluding procedure time. <AYAH BONDS - Last Filed: 01/09/22 18:13> ED Disposition <POLLY CORTEZ - Last Filed: 01/09/22 14:19> Is pt being admited?: Yes Time of Disposition: 18:09 (Dr Gates/hospitalist) <AYAH BONDS - Last Filed: 01/09/22 18:13> Clinical Impression: Chest pain, End stage renal disease, Missed dialysis, Pulmonary edema, Elevated troponin, O2 dependent, Anemia Disposition: ADMITTED INPATIENT Condition: Stable Instructions: Pulmonary Edema (ED) Heart Score - HEART Score History: Moderately suspicious EKG: Non-specific Age: 45-65 Risk factors: > 3 risk factors or hx of atherosclerotic disease - EKG Read Time Time EKG Completed: 13:28 EKG Read Time: 13:37 <POLLY CORTEZ - Last Filed: 01/09/22 14:19> - HEART Score Troponin: 1-3x normal limit <AYAH BONDS - Last Filed: 01/09/22 18:13>
[2022-01-09] MEDS ORDERED: ONDANSETRON 4 MG/2 ML INJ IV ONE (12:53)
[2022-01-09] MEDS ORDERED: fentaNYL 100 MCG/2 ML INJ IV ONE (12:53)
[2022-01-09 15:07] LABS: Hematocrit 21.8 % (30.3-42.9); Hemoglobin 7.3 gm/dl (10.1-14.3); Mean Corpuscular HGB Conc 33 % (30-34); Mean Corpuscular Volume 92 fl (79-97); Platelet Count 121 K/mm3 (140-440); Red Blood Count 2.36 M/mm3 (3.65-5.03); Red Cell Distribution Width 16.7 % (13.2-15.2)
--- NOTE | 2022-01-09 15:42 | XRay Report ---
CHEST 1 VIEW 01/09/2022 2:34 PM INDICATION / CLINICAL INFORMATION: Chest pain. COMPARISON: 06/02/17. FINDINGS: SUPPORT DEVICES: None. HEART / MEDIASTINUM: There is mild generalized enlargement of the cardiopericardial silhouette, proba felicita unchanged allowing for differences in technique. The aorta is normal in caliber. Pulmonary vascul ature is normal for technique. LUNGS / PLEURA: There is mild patchy parenchymal disease in the left midlung and possibly in the lung bases. No pleural effusion. No pneumothorax. ADDITIONAL FINDINGS: No significant additional findings. IMPRESSION: Mild patchy parenchymal disease in the left midlung and possibly in the lung bases. Diffe rential diagnosis includes pneumonia and asymmetric edema. Signer Name: Tramaine Mcmullen MD Signed: 01/09/2022 3:37 PM Workstation Name: [id number]
[2022-01-09 16:28] LABS: Blood Urea Nitrogen 59 mg/dL (7-17); Calcium 8.5 mg/dL (8.4-10.2); Creatine Kinase MB 1.9 ng/mL (0.0-4.0); Hemolysis Index 36
[2022-01-09 16:30] LABS: BUN/Creatinine Ratio 6
[2022-01-09 17:33] LABS: HDL Cholesterol 41 mg/dL (40-59); LDL Cholesterol,Direct 30 mg/dL (50-130)
[2022-01-09] MEDS ORDERED: ALBUTEROL 2.5 MG/3 ML NEBU IH PRN (18:00)
[2022-01-09] MEDS ORDERED: ACETAMINOPHEN 325 MG TAB PO PRN (18:00)
[2022-01-09] MEDS ORDERED: oxyCODONE /ACETAMINOPHEN 5-325MG TAB PO PRN (18:00)
--- NOTE | 2022-01-09 18:14 | History and Physical Report ---
History of Present Illness Chief complaint: I missed my dialysis History of present illness: 46 YO Female with ESRD on HD(M,W,F) last dialyzed 01/05/22, HTN, DM, GERD, Obesity Hypoventilation Syndrome, Metabolic Syndrome presents ED for evaluation. Patient reports "I miss my dialysis". Patient states that she was unable to undergo dialysis due to "family reasons". Patient states that she had experienced shortness of breath and subjective weight gain over the past 3 days with persistent symptoms over the same timeframe. Patient knowledges epigastric discomfort at time of evaluation and denies chest pain. EMS was notified and upon arrival the patient was found to be in distress and subsequent transported to [facility] for further care and evaluation of the aforementioned symptoms. The patient was seen and evaluated in the emergency department. All lab and imaging studies reviewed. Patient found to have end-stage renal disease complicated by fluid overload due to missed dialysis, pulmonary edema, as well as anemia of chronic kidney disease. Patient found to have epigastric discomfort consistent with gastroesophageal reflux disease. Patient has fever, chills, chest pain, palpitation, productive cough, skin rash, recent contact, or known exposure to COVID-19. Prior admission on 06/02/2017 reviewed. All medication listed at time of admission has been reconciled. Advanced care planning conducted in ED. Nephrology team consulted in ED for urgent dialysis. Past History Past Medical History: diabetes, ESRD, GERD, hypertension Past Surgical History: Other (Dialysis access) Social history: single Family history: diabetes, hypertension Medications and Allergies Allergies Allergy/AdvReac Type Severity Reaction Status Date / Time No Known Allergies Allergy Verified 01/09/22 12:15 Home Medications Medication Instructions Recorded Confirmed Last Taken Type Potassium Chloride 20 meq PO DAILY 06/02/17 06/02/17 06/01/17 History Linaclotide [Linzess] 145 mg PO DAILY #30 capsule 06/03/17 Unknown Rx Metoprolol [Lopressor TAB] 100 mg PO BID #60 tablet 06/03/17 Unknown Rx Renvela 800 mg PO [facility] #30 06/03/17 Unknown Rx lisinopriL [Zestril TAB] 20 mg PO BID #60 tablet 06/03/17 Unknown Rx Review of Systems Constitutional: weight gain, no weight loss, no fever, no chills Ears, nose, mouth and throat: no ear pain, no ear discharge, no tinnitis, no nasal congestion Breasts: no change in shape, no swelling, no mass Cardiovascular: shortness of breath, no chest pain, no dyspnea on exertion Respiratory: no cough, no cough with sputum, no excessive sputum, no shortness of breath Gastrointestinal: indigestion, no abdominal pain, no nausea, no vomiting, no diarrhea, no constipation Genitourinary Female: no pelvic pain, no flank pain, no dysuria, no urinary frequency, no urgency Rectal: no pain, no incontinence, no bleeding Musculoskeletal: no neck stiffness, no neck pain, no leg numbness/tingling Integumentary: no rash, no redness, no wounds, no jaundice Neurological: no head injury, no weakness, no tingling, no tremors Psychiatric: no anxiety, no sleep disturbances, no change in appetite, no suicidal ideation, no hallucinations Endocrine: no cold intolerance, no polyphagia, no excessive thirst, no nocturia, no excessive sweating Hematologic/Lymphatic: no easy bruising, no easy bleeding Allergic/Immunologic: no urticaria Exam - Constitutional Vitals: Temp Pulse Resp BP Pulse Ox 98.2 F 67 12 138/60 89 01/09/22 12:00 01/09/22 15:00 01/09/22 15:00 01/09/22 15:00 01/09/22 15:00 General appearance: Present: mild distress, obese - EENT Eyes: Present: PERRL ENT: hearing intact, clear oral mucosa - Neck Neck: Present: supple, normal ROM - Respiratory Respiratory effort: normal Respiratory: bilateral: CTA - Cardiovascular Heart Sounds: Present: S1 & S2. Absent: rub, click - Extremities Extremities: pulses symmetrical, No edema Peripheral Pulses: within normal limits - Abdominal General gastrointestinal: Present: soft, non-tender, non-distended, normal bowel sounds Female genitourinary: Present: normal - Integumentary Integumentary: Present: clear, warm, dry - Musculoskeletal Musculoskeletal: gait normal, strength equal bilaterally - Psychiatric Psychiatric: appropriate mood/affect, intact judgment & insight - Neurologic Neurologic: CNII-XII intact, moves all extremities HEART Score - HEART Score EKG: Non-specific Age: 45-65 Risk factors: > 3 risk factors or hx of atherosclerotic disease Troponin: Troponin T 0.139 ng/mL (0.00-0.029) H* 01/09/22 14:43 Troponin: 1-3x normal limit Results - Labs CBC & Chem 7: 01/09/22 14:43 01/09/22 14:43 Labs: Abnormal lab results 01/09/22 01/09/22 Range/Units 14:43 14:43 WBC 2.2 L (4.5-11.0) K/mm3 RBC 2.36 L (3.65-5.03) M/mm3 Hgb 7.3 L (10.1-14.3) gm/dl Hct 21.8 L (30.3-42.9) % RDW 16.7 H (13.2-15.2) % Plt Count 121 L (140-440) K/mm3 BUN 59 H (7-17) mg/dL Creatinine 10.5 H (0.6-1.2) mg/dL Glucose 140 H (65-100) mg/dL Troponin T 0.139 H* (0.00-0.029) ng/mL NT-Pro-B Natriuret Pep > 52568 H (0-450) pg/mL LDL Cholesterol Direct 30 L (50-130) mg/dL Assessment and Plan - Patient Problems (1) End stage renal disease Current Visit: Yes Status: Acute Plan to address problem: Strict I/O, monitoring output every shift, daily weight, afterload reduction, monitor urine output every shift, dialysis as per renal team, (2) Fluid overload Current Visit: Yes Status: Acute Qualifiers: Hypervolemia type: other Qualified Code(s): E87.79 - Other fluid overload Plan to address problem: Urgent dialysis as per renal team, monitor fluid balance. (3) Metabolic syndrome Current Visit: Yes Status: Acute Plan to address problem: Urgent dialysis, BMP, repeat BMP in AM. (4) Obesity hypoventilation syndrome Current Visit: Yes Status: Acute Plan to address problem: Balanced diet, increase physical activity discharge, outpatient pulmonary follow-up for sleep study. (5) Diabetes Current Visit: Yes Status: Acute Plan to address problem: Consistent carbohydrate diet, Accu-Chek, insulin protocol, hypoglycemia protocol. (6) Hypertension Current Visit: Yes Status: Acute Qualifiers: Hypertension type: primary hypertension Qualified Code(s): I10 - Essential (primary) hypertension Plan to address problem: Monitor blood pressure every shift, continue medical management. (7) Missed dialysis Current Visit: Yes Status: Acute Plan to address problem: Patient counseled regarding noncompliance with outpatient dialysis. Patient knowledges understanding instructions. (8) Pulmonary edema Current Visit: Yes Status: Acute Qualifiers: Chronicity: acute Qualified Code(s): J81.0 - Acute pulmonary edema Plan to address problem: Urgent dialysis, supplemental oxygen, pulse oximetry, noninvasive positive pressure ventilation as clinically indicated. (9) GERD (gastroesophageal reflux disease) Current Visit: Yes Status: Acute Qualifiers: Esophagitis presence: without esophagitis Qualified Code(s): K21.9 - Gastro-esophageal reflux disease without esophagitis Plan to address problem: PPI therapy, supportive care. (10) DVT prophylaxis Current Visit: Yes Status: Acute Plan to address problem: SCDs bilateral lower extremities while in bed (11) Advance care planning Current Visit: Yes Status: Acute Plan to address problem: Disease education data, care plan discussed, diagnoses discussed, prognosis discussed, patient is full code. Patient knowledges understanding and agreement with care plan, +30 minutes. (12) Preventative health care Current Visit: Yes Status: Acute Plan to address problem: Patient counseled regarding balanced diet, meal planning, increase physical activity at discharge, weight reduction, compliance with outpatient dialysis, +30 minutes. Patient instructed to follow-up with primary care physician for all age and risk factor appropriate screening test. Patient instructed to follow-up with services tech for all age and risk factor appropriate screening test.
[2022-01-09 18:24] LABS: Basophils % (Manual) 0 % (0.0-1.8); Eosinophils % (Manual) 0 % (0.0-4.3); Hypochromasia 1+; Platelet Estimate Appears Decreased; Total Cells Counted 100
[2022-01-09 18:30] LABS: Anisocytosis 1+
[2022-01-09] MEDS ORDERED: SODIUM CHLORIDE 0.9% 100 ML IV PRN (18:49)
--- NOTE | 2022-01-09 18:54 | Event Note ---
Date: 01/09/22 Consulted for ESRD Labs within acceptable range with no emergent/severe electrolyte derangements, no oxygen requirements, therefore no indication for emergent dialysis overnight. Plan for dialysis tomorrow morning. Recommend cardiology evaluation for chest pain and elevated troponin
[2022-01-09] MEDS ORDERED: RENVELA 800 MG PO SCH (22:00)
--- NOTE | 2022-01-09 22:54 | Electrocardiograph Report ---
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
[2022-01-09] MEDS: METOPROLOL TARTRATE 100 MG TAB PO SCH (23:15)
[2022-01-09] MEDS: LISINOPRIL 20 MG TAB PO SCH (23:16)
[2022-01-10] MEDS: MORPHINE 4 MG/1 ML INJ IV PRN ×2 (00:01→07:43)
[2022-01-10 05:09] LABS: Hematocrit 20.2 % (30.3-42.9); Hemoglobin 6.7 gm/dl (10.1-14.3); Mean Corpuscular HGB Conc 33 % (30-34); Mean Corpuscular Volume 93 fl (79-97); Platelet Count 107 K/mm3 (140-440); Red Blood Count 2.18 M/mm3 (3.65-5.03); Red Cell Distribution Width 16.7 % (13.2-15.2)
[2022-01-10 05:35] LABS: Hepatitis B Surface Antigen Non-Reactive (Negative); Hepatitis C Virus Antibody Non-Reactive (NonReactive)
[2022-01-10 05:58] LABS: Anisocytosis 1+; Hypochromasia 1+; Total Cells Counted 100
[2022-01-10] MEDS: ONDANSETRON 4 MG/2 ML INJ IV PRN ×2 (08:24→13:26)
[2022-01-10] MEDS: SEVELAMER CARBONATE 800 MG TAB PO SCH ×4 (08:26→21:46)
[2022-01-10] MEDS ORDERED: POTASSIUM CHLORIDE 20 MEQ PO SCH (10:00)
[2022-01-10] MEDS: POTASSIUM CHLORIDE ER 20 MEQ TAB PO SCH (10:05)
[2022-01-10] MEDS: METOPROLOL TARTRATE 100 MG TAB PO SCH ×2 (10:05→21:46)
[2022-01-10] MEDS: LISINOPRIL 20 MG TAB PO SCH ×2 (10:06→21:46)
[2022-01-10] MEDS ORDERED: SODIUM CHLORIDE 0.9% 500 ML 500 ML IV ONE ×2 (12:00→17:00)
--- NOTE | 2022-01-10 22:10 | History and Physical Report ---
History of Present Illness Date of examination: 01/10/22 Date of admission: 01/09/22 18:14 Chief complaint: Shortness of breath History of present illness: This is a 46-year-old woman with end-stage renal disease on hemodialysis, hypertension and diabetes who presented with missed dialysis and shortness of breath. She was subsequently admitted for further work-up and nephrology was consulted for ESRD management. Patient denies chest pain, diaphoresis, presyncope and syncope. Past History Past Medical History: diabetes, ESRD, GERD, hypertension Past Surgical History: Other (Dialysis access) Social history: single Family history: diabetes, hypertension Medications and Allergies Allergies Allergy/AdvReac Type Severity Reaction Status Date / Time No Known Allergies Allergy Verified 01/09/22 12:15 Home Medications Medication Instructions Recorded Confirmed Last Taken Type Potassium Chloride 20 meq PO DAILY 06/02/17 06/02/17 06/01/17 History Linaclotide [Linzess] 145 mg PO DAILY #30 capsule 06/03/17 Unknown Rx Metoprolol [Lopressor TAB] 100 mg PO BID #60 tablet 06/03/17 Unknown Rx Renvela 800 mg PO [facility] #30 06/03/17 Unknown Rx lisinopriL [Zestril TAB] 20 mg PO BID #60 tablet 06/03/17 Unknown Rx Active Meds: Active Medications Acetaminophen (Acetaminophen 325 Mg Tab) 650 mg PO Q4H PRN PRN Reason: Pain MILD(1-3)/Fever >100.5/CARDENAS Albuterol (Albuterol 2.5 Mg/3 Ml Nebu) 2.5 mg IH Q4HRT PRN PRN Reason: Shortness Of Breath Sodium Chloride (Nacl 0.9%) 100 mls @ 999 mls/hr IV THAI PRN PRN Reason: Hypotension Lisinopril (Lisinopril 20 Mg Tab) 20 mg PO BID [facility] Last Admin: 01/10/22 21:46 Dose: 20 mg Metoprolol Tartrate (Metoprolol Tartrate 100 Mg Tab) 100 mg PO BID [facility] Last Admin: 01/10/22 21:46 Dose: 100 mg Morphine Sulfate (Morphine 4 Mg/1 Ml Inj) 2 mg IV Q8H PRN PRN Reason: Pain , Severe (7-10) Last Admin: 01/10/22 07:43 Dose: 2 mg Ondansetron HCl (Ondansetron 4 Mg/2 Ml Inj) 4 mg IV Q8H PRN PRN Reason: Nausea And Vomiting Last Admin: 01/10/22 13:26 Dose: 4 mg Oxycodone/Acetaminophen (Oxycodone /Acetaminophen 5-325mg Tab) 1 tab PO Q16H PRN PRN Reason: Pain, Moderate (4-6) Potassium Chloride (Potassium Chloride Er 20 Meq Tab) 20 meq PO QDAY [facility] Last Admin: 01/10/22 10:05 Dose: 20 meq Sevelamer Carbonate (Sevelamer Carbonate 800 Mg Tab) 800 mg PO WMHS [facility] Last Admin: 01/10/22 21:46 Dose: 800 mg Sodium Chloride (Sodium Chloride 0.9% 10 Ml Flush Syringe) 10 ml IV BID [facility] Last Admin: 01/10/22 21:46 Dose: 10 ml Sodium Chloride (Sodium Chloride 0.9% 10 Ml Flush Syringe) 10 ml IV PRN PRN PRN Reason: LINE FLUSH Review of Systems All systems: negative Constitutional: fatigue Cardiovascular: shortness of breath Exam - Vital Signs Vital signs: Vital Signs Temp Pulse Resp BP Pulse Ox 98.2 F 69 18 142/86 98 01/09/22 12:00 01/09/22 12:00 01/09/22 12:00 01/09/22 12:00 01/09/22 12:00 - Physical Exam Narrative exam: Constitutional: no acute distress Head: NC/AT Neck: supple Lungs: clear to auscultation CV: RRR, no M/R/G Abdomen: soft, non-tender, bowel sounds present Back: nontender Extremities: no edema, pulses WNL Skin: intact Neuro: no focal deficits, alert and oriented x4 Results - Lab Results 01/10/22 04:24 01/09/22 14:43 Most recent lab results Calcium 8.5 mg/dL (8.4-10.2) 01/09/22 14:43 Assessment and Plan End-stage renal disease on hemodialysis Essential hypertension Anemia of ESRD Fluid overload Hyperphosphatemia Secondary hyperparathyroidism Plan for hemodialysis today Continue antihypertensives Hold antihypertensives on hemodialysis days for systolics less than 160 Epogen with HD prn Continue binders Renally dose medications ESRD diet with protein intake 1.2 to 1.4 g/kg/day
[2022-01-11] MEDS: MORPHINE 4 MG/1 ML INJ IV PRN (09:41)
[2022-01-11] MEDS: METOPROLOL TARTRATE 100 MG TAB PO SCH ×2 (09:57→21:58)
[2022-01-11] MEDS: POTASSIUM CHLORIDE ER 20 MEQ TAB PO SCH (09:57)
[2022-01-11] MEDS: SEVELAMER CARBONATE 800 MG TAB PO SCH ×3 (09:57→21:58)
[2022-01-11] MEDS: LISINOPRIL 20 MG TAB PO SCH ×2 (09:57→21:59)
--- NOTE | 2022-01-11 13:42 | Discharge Summary ---
Providers - Providers Date of Admission: 01/09/22 18:14 Date of discharge: 01/12/22 Attending physician: RAJAN SHAW 01/09/22 18:05 Consult to Physician [CONS] Urgent Comment: Consulting Provider: JAKE CABALLERO Physician Instructions: Reason For Exam: esrd, missed dialysis, pulmonary edema Primary care physician: [employer] Hospitalization Condition: Stable Hospital course: This is a 46-year-old woman with end-stage renal disease on hemodialysis, hypertension and diabetes who presented with missed dialysis and shortness of breath. She was subsequently admitted for further work-up and nephrology was consulted for ESRD management. Hb was 6.7 and transfused onr unit PRBC. She received HD and BP meds were in hold. Patient was then discharged in stable condition. Disposition: 30 STILL A PATIENT Final Discharge Diagnosis (Prints w/discharge instructions): End-stage renal disease on hemodialysis. Essential hypertension. Anemia of ESRD, s/p transfusion. Fluid overload. Hyperphosphatemia. Secondary hyperparathyroidism Time spent for discharge: 34 minutes Core Measure Documentation - Palliative Care Palliative Care/ Comfort Measures: Not Applicable - Core Measures Any of the following diagnoses?: none Exam - Physical Exam Narrative exam: Constitutional: no acute distress Head: NC/AT Neck: supple Lungs: clear to auscultation CV: RRR, no M/R/G Abdomen: soft, non-tender, bowel sounds present Back: nontender Extremities: no edema, pulses WNL Skin: intact Neuro: no focal deficits, alert and oriented x4 - Constitutional Vitals: Temp Pulse Resp BP Pulse Ox 99.4 F 75 20 147/63 97 01/10/22 22:00 01/10/22 22:00 01/10/22 22:00 01/10/22 22:00 01/11/22 08:51 Plan Activity: advance as tolerated Weight Bearing Status: Non-Weight Bearing Diet: renal Follow up with: DARELL GATES MD [Primary Care Provider] - 7 Days CELIA PEARSON MD [Staff Physician] - 7 Days
[2022-01-11 15:53] LABS: Hematocrit 24.2 % (30.3-42.9); Hemoglobin 7.9 gm/dl (10.1-14.3)
--- NOTE | 2022-01-11 18:48 | Progress Note ---
Assessment and Plan End-stage renal disease on hemodialysis Essential hypertension Anemia of ESRD Fluid overload Hyperphosphatemia Secondary hyperparathyroidism Continue hemodialysis MWF Continue antihypertensives Hold antihypertensives on hemodialysis days for systolics less than 160 Epogen with HD prn Continue binders Renally dose medications ESRD diet with protein intake 1.2 to 1.4 g/kg/day Subjective Date of service: 01/11/22 Principal diagnosis: Shortness of breath Interval history: Status post dialysis yesterday. Feels better this morning. Objective - Exam Narrative Exam: Constitutional: no acute distress Head: NC/AT Neck: supple Lungs: clear to auscultation CV: RRR, no M/R/G Abdomen: soft, non-tender, bowel sounds present Back: nontender Extremities: no edema, pulses WNL Skin: intact Neuro: no focal deficits, alert and oriented x4 - Vital Signs Vital signs: Vital Signs - 12hr 01/11/22 08:51 O2 Sat by Pulse 97 Oximetry - Lab 01/11/22 15:08 01/09/22 14:43 Most recent lab results Calcium 8.5 mg/dL (8.4-10.2) 01/09/22 14:43 Medications & Allergies - Medications Allergies/Adverse Reactions: Allergies No Known Allergies Allergy (Verified 01/09/22 12:15) Home Medications: Home Medications Medication Instructions Recorded Confirmed Last Taken Type Metoprolol [Lopressor TAB] 100 mg PO BID #60 tablet 06/03/17 Unknown Rx Renvela 800 mg PO [facility] #30 06/03/17 Unknown Rx lisinopriL [Zestril TAB] 20 mg PO BID #60 tablet 06/03/17 Unknown Rx Active Medications: Generic Name Dose Route Start Last Admin Trade Name Freq PRN Reason Stop Dose Admin Acetaminophen 650 mg 01/09/22 18:00 Acetaminophen 325 Mg Tab PO Q4H PRN Pain MILD(1-3)/Fever >100.5/CARDENAS Albuterol 2.5 mg 01/09/22 18:00 Albuterol 2.5 Mg/3 Ml Nebu IH Q4HRT PRN Shortness Of Breath Sodium Chloride 100 mls @ 999 mls/hr 01/09/22 18:49 Nacl 0.9% IV THAI PRN Hypotension Lisinopril 20 mg 01/09/22 22:00 01/11/22 09:57 Lisinopril 20 Mg Tab PO 20 mg BID ANTHONY Administration Metoprolol Tartrate 100 mg 01/09/22 22:00 01/11/22 09:57 Metoprolol Tartrate 100 Mg Tab PO 100 mg BID ANTHONY Administration Morphine Sulfate 2 mg 01/09/22 18:00 01/11/22 09:41 Morphine 4 Mg/1 Ml Inj IV 2 mg Q8H PRN Administration Pain , Severe (7-10) Ondansetron HCl 4 mg 01/09/22 18:00 01/10/22 13:26 Ondansetron 4 Mg/2 Ml Inj IV 4 mg Q8H PRN Administration Nausea And Vomiting Oxycodone/Acetaminophen 1 tab 01/09/22 18:00 Oxycodone /Acetaminophen 5-325mg Tab PO Q16H PRN Pain, Moderate (4-6) Potassium Chloride 20 meq 01/10/22 10:00 01/11/22 09:57 Potassium Chloride Er 20 Meq Tab PO 20 meq QDAY ANTHONY Administration Sevelamer Carbonate 800 mg 01/10/22 08:00 01/11/22 09:57 Sevelamer Carbonate 800 Mg Tab PO 800 mg WMHS ANTHONY Administration Sodium Chloride 10 ml 01/09/22 22:00 01/11/22 09:57 Sodium Chloride 0.9% 10 Ml Flush Syringe IV 10 ml BID ANTHONY Administration Sodium Chloride 10 ml 01/09/22 18:00 Sodium Chloride 0.9% 10 Ml Flush Syringe IV PRN PRN LINE FLUSH
[2022-01-12] MEDS: POTASSIUM CHLORIDE ER 20 MEQ TAB PO SCH (10:04)
[2022-01-12] MEDS: SEVELAMER CARBONATE 800 MG TAB PO SCH ×3 (10:04→17:48)
[2022-01-12] MEDS: METOPROLOL TARTRATE 100 MG TAB PO SCH (10:07)
[2022-01-12] MEDS: LISINOPRIL 20 MG TAB PO SCH (10:08)
--- NOTE | 2022-01-12 10:14 | Progress Note ---
Assessment and Plan Impression End-stage renal disease on hemodialysis Fluid overload Essential hypertension Anemia of ESRD Secondary hyperparathyroidism Plan: Continue hemodialysis MWF Continue antihypertensives Epogen with HD prn Continue binders Dose medications for renal function ESRD diet with protein intake 1.2 to 1.4 g/kg/day Subjective Date of service: 01/12/22 Principal diagnosis: Shortness of breath Interval history: Patient seen on dialysis. She has no complaints. Objective - Vital Signs Vital signs: Vital Signs - 12hr 01/11/22 01/12/22 01/12/22 23:02 08:57 10:07 Temperature 99.1 F Pulse Rate 65 63 Respiratory 20 Rate Blood Pressure 146/44 Blood Pressure 159/63 [Right] O2 Sat by Pulse 96 93 Oximetry 01/12/22 10:08 Temperature Pulse Rate 63 Respiratory Rate Blood Pressure 146/44 Blood Pressure [Right] O2 Sat by Pulse Oximetry - General Appearance General appearance: well-developed, well-nourished EENT: ATNC Respiratory: Present: Decreased Breath Sounds Cardiology: regular, S1S2 Gastrointestinal: normal, no tenderness, no distended Integumentary: warm and dry Neurologic: alert and oriented x3 Psychiatric: cooperative - Lab 01/11/22 15:08 01/09/22 14:43 Most recent lab results Calcium 8.5 mg/dL (8.4-10.2) 01/09/22 14:43 Medications & Allergies - Medications Allergies/Adverse Reactions: Allergies No Known Allergies Allergy (Verified 01/09/22 12:15) Home Medications: Home Medications Medication Instructions Recorded Confirmed Last Taken Type Metoprolol [Lopressor TAB] 100 mg PO BID #60 tablet 06/03/17 Unknown Rx Renvela 800 mg PO [facility] #30 06/03/17 Unknown Rx lisinopriL [Zestril TAB] 20 mg PO BID #60 tablet 06/03/17 Unknown Rx Active Medications: Generic Name Dose Route Start Last Admin Trade Name Freq PRN Reason Stop Dose Admin Acetaminophen 650 mg 01/09/22 18:00 Acetaminophen 325 Mg Tab PO Q4H PRN Pain MILD(1-3)/Fever >100.5/CARDENAS Albuterol 2.5 mg 01/09/22 18:00 Albuterol 2.5 Mg/3 Ml Nebu IH Q4HRT PRN Shortness Of Breath Sodium Chloride 100 mls @ 999 mls/hr 01/09/22 18:49 Nacl 0.9% IV THAI PRN Hypotension Lisinopril 20 mg 01/09/22 22:00 01/12/22 10:08 Lisinopril 20 Mg Tab PO Not Given BID ANTHONY Metoprolol Tartrate 100 mg 01/09/22 22:00 01/12/22 10:07 Metoprolol Tartrate 100 Mg Tab PO Not Given BID ANTHONY Morphine Sulfate 2 mg 01/09/22 18:00 01/11/22 09:41 Morphine 4 Mg/1 Ml Inj IV 2 mg Q8H PRN Administration Pain , Severe (7-10) Ondansetron HCl 4 mg 01/09/22 18:00 01/10/22 13:26 Ondansetron 4 Mg/2 Ml Inj IV 4 mg Q8H PRN Administration Nausea And Vomiting Oxycodone/Acetaminophen 1 tab 01/09/22 18:00 Oxycodone /Acetaminophen 5-325mg Tab PO Q16H PRN Pain, Moderate (4-6) Potassium Chloride 20 meq 01/10/22 10:00 01/12/22 10:04 Potassium Chloride Er 20 Meq Tab PO 20 meq QDAY ANTHONY Administration Sevelamer Carbonate 800 mg 01/10/22 08:00 01/12/22 10:04 Sevelamer Carbonate 800 Mg Tab PO 800 mg WMHS ANTHONY Administration Sodium Chloride 10 ml 01/09/22 22:00 01/12/22 10:07 Sodium Chloride 0.9% 10 Ml Flush Syringe IV 10 ml BID ANTHONY Administration Sodium Chloride 10 ml 01/09/22 18:00 Sodium Chloride 0.9% 10 Ml Flush Syringe IV PRN PRN LINE FLUSH
--- NOTE | 2022-01-12 15:54 | Progress Note ---
Assessment and Plan This is a 46-year-old woman with end-stage renal disease on hemodialysis, hypertension and diabetes who presented with missed dialysis and shortness of breath. A/P End-stage renal disease on hemodialysis Essential hypertension Anemia of ESRD Fluid overload Hyperphosphatemia Secondary hyperparathyroidism --Planned for dc today but she refused to leave --s/p hemodialysis yesterday --Continue antihypertensives --Hold antihypertensives on hemodialysis days for systolics less than 160 --Epogen with HD prn --Continue binders --Renally dose medications --ESRD diet with protein intake 1.2 to 1.4 g/kg/day Subjective Date of service: 01/11/22 Principal diagnosis: Shortness of breath Objective - Constitutional Vitals: Vital Signs - 12hr 01/12/22 01/12/22 01/12/22 08:57 10:00 10:07 Temperature Pulse Rate 63 Respiratory 18 Rate Blood Pressure 146/44 O2 Sat by Pulse 93 97 Oximetry O2 Sat by Pulse Oximetry [ Posterior Bilateral] 01/12/22 01/12/22 01/12/22 10:08 11:15 11:30 Temperature 99.2 F Pulse Rate 63 57 L 61 Respiratory 20 Rate Blood Pressure 146/44 193/88 186/91 O2 Sat by Pulse Oximetry O2 Sat by Pulse 100 Oximetry [ Posterior Bilateral] 01/12/22 01/12/22 01/12/22 11:45 12:00 12:15 Temperature Pulse Rate 59 L 59 L 58 L Respiratory Rate Blood Pressure 177/88 177/83 177/77 O2 Sat by Pulse Oximetry O2 Sat by Pulse Oximetry [ Posterior Bilateral] 01/12/22 01/12/22 01/12/22 12:30 12:45 13:00 Temperature Pulse Rate 60 60 60 Respiratory Rate Blood Pressure 169/87 192/87 162/80 O2 Sat by Pulse Oximetry O2 Sat by Pulse Oximetry [ Posterior Bilateral] 01/12/22 01/12/22 01/12/22 13:15 13:30 13:45 Temperature Pulse Rate 62 62 62 Respiratory Rate Blood Pressure 154/72 157/79 144/71 O2 Sat by Pulse Oximetry O2 Sat by Pulse Oximetry [ Posterior Bilateral] 01/12/22 01/12/22 14:00 14:40 Temperature 98.2 F Pulse Rate 63 66 Respiratory 18 Rate Blood Pressure 145/75 153/78 O2 Sat by Pulse Oximetry O2 Sat by Pulse 100 Oximetry [ Posterior Bilateral] - Labs CBC & Chem 7: 01/11/22 15:08 01/09/22 14:43 Labs: Abnormal lab results 01/11/22 Range/Units 15:08 Hgb 7.9 L (10.1-14.3) gm/dl Hct 24.2 L (30.3-42.9) % HEART Score - HEART Score EKG: Non-specific Age: 45-65 Risk factors: > 3 risk factors or hx of atherosclerotic disease Troponin: Troponin T 0.129 ng/mL (0.00-0.029) H* 01/09/22 18:14 Troponin: 1-3x normal limit
[2022-01-12 16:55] VITALS: BP 144/53
== END 2022-01-12 17:58 | disposition home or self-care (01) | DRG 640 ==
LOC: ED 11:59 → 3A 18:14
PROVIDERS: ADMIT Internal Medicine; ATTEND Internal Medicine
PROC: 30233N1 Transfusion of Nonautologous Red Blood Cells into Peripheral Vein, Percutaneous Approach (ICD-10-PCS; principal; 2022-01-10)
PROC: 5A1D70Z Performance of Urinary Filtration, Intermittent, Less than 6 Hours Per Day (ICD-10-PCS; 2022-01-10)
PROC: 5A1D70Z Performance of Urinary Filtration, Intermittent, Less than 6 Hours Per Day (ICD-10-PCS; 2022-01-12)
DX: E87.70 Fluid overload, unspecified (principal); J81.0 Acute pulmonary edema; N18.6 End stage renal disease; I12.0 Hypertensive chronic kidney disease with stage 5 chronic kidney disease or end stage renal disease; E66.2 Morbid (severe) obesity with alveolar hypoventilation; Z68.41 Body mass index [BMI] 40.0-44.9, adult; N25.81 Secondary hyperparathyroidism of renal origin; Z99.2 Dependence on renal dialysis; K21.9 Gastro-esophageal reflux disease without esophagitis; D63.1 Anemia in chronic kidney disease; E11.22 Type 2 diabetes mellitus with diabetic chronic kidney disease; E88.81 Metabolic syndrome and other insulin resistance; E83.39 Other disorders of phosphorus metabolism; R77.8 Other specified abnormalities of plasma proteins; Z99.81 Dependence on supplemental oxygen; Z83.3 Family history of diabetes mellitus; Z79.899 Other long term (current) drug therapy; Z82.49 Family history of ischemic heart disease and other diseases of the circulatory system
CPT/HCPCS: 36415; 71045; 80048; 80061; 80074; 82550; 82553; 82962; 83880; 84484; 85007; 85014; 85018; 85025; 86850; 86900; 86901; 86920; 93005; 94760; 99285; G0378; J2270; J2405; J3010; J7040; P9016

== ENCOUNTER 2022-01-20 10:51 | Observation (INO) | payer MEDICARE ==
[2022-01-20] MEDS ORDERED: ASPIRIN 81 MG TAB CHEW PO ONE (16:31)
--- NOTE | 2022-01-20 16:52 | Emergency Department Report ---
ED Chest Pain HPI - General Chief Complaint: Chest Pain Stated Complaint: CHEST PAIN Time Seen by Provider: 01/20/22 16:29 Source: patient, EMS Mode of arrival: Stretcher Limitations: No Limitations - History of Present Illness Initial Comments: This is a 46-year-old female present emergency department with complaint of chest pain. She also has abdominal pain. Patient reports she has history of end-stage renal disease on hemodialysis. Last dialysis session was on Wednesday. 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 She states that she had sharp chest pain that started this morning. She also notes that she has had no shortness of breath no fevers no chills no coughing. She denies any pain with urination and states she still makes urine. She reports lower abdominal pain. This pain also started today. She denies any leg pain or leg swelling. She denies any nausea vomiting or diarrhea or constipation. -: hour(s) Severity scale (0 -10): 5 - Related Data Home Medications Medication Instructions Recorded Confirmed Last Taken AtorvaSTATin [Lipitor] 40 mg PO QHS 01/21/22 01/21/22 Unknown Hydralazine HCl 50 mg PO TID 01/21/22 01/21/22 Unknown ISOSORBIDE MONOnitrate [Imdur ER] 30 mg PO DAILY 01/21/22 01/21/22 Unknown Metoprolol Xl [Metoprolol 75 mg PO QPM 01/21/22 01/21/22 Unknown SUCCINATE ER TAB] NIFEdipine [Nifedipine ER] 60 mg PO QDAY 01/21/22 01/21/22 Unknown Previous Rx's Medication Instructions Recorded Last Taken Type Aspirin EC [Ecotrin] 325 mg PO QDAY 30 Days #30 tablet 01/21/22 Unknown Rx Clopidogrel [Plavix] 75 mg PO QDAY 90 Days #90 tab 01/21/22 Unknown Rx Nitroglycerin [Nitrostat] 0.4 mg SL Q5M PRN 30 Days #30 01/21/22 Unknown Rx tablet Allergies Allergy/AdvReac Type Severity Reaction Status Date / Time No Known Allergies Allergy Verified 01/24/22 12:50 Heart Score - HEART Score History: Moderately suspicious EKG: Non-specific Age: 45-65 Risk factors: 1-2 risk factors Troponin: < normal limit HEART Score: 4 - EKG Read Time Time EKG Completed: 16:35 EKG Read Time: 16:38 ED Review of Systems ROS: Stated complaint: CHEST PAIN Other details as noted in HPI Constitutional: denies: chills, fever Eyes: denies: eye pain, eye discharge, vision change ENT: denies: ear pain, throat pain Respiratory: denies: cough, shortness of breath, wheezing Cardiovascular: chest pain. denies: palpitations Endocrine: no symptoms reported Gastrointestinal: abdominal pain. denies: nausea, diarrhea Genitourinary: denies: urgency, dysuria, discharge Musculoskeletal: denies: back pain, joint swelling, arthralgia Skin: denies: rash, lesions Neurological: denies: headache, weakness, paresthesias Psychiatric: denies: anxiety, depression Hematological/Lymphatic: denies: easy bleeding, easy bruising ED Past Medical Hx - Past Medical History Hx Hypertension: Yes Hx Diabetes: Yes Hx Renal Disease: Yes (dialysis M,W, F) Hx HIV: No - Surgical History Additional Surgical History: dialysis cath right leg, left upper extremity fistula - Social History Smoking Status: Never Smoker - Medications Home Medications: Home Medications Medication Instructions Recorded Confirmed Last Taken Type Aspirin EC [Ecotrin] 325 mg PO QDAY 30 Days #30 tablet 01/21/22 Unknown Rx AtorvaSTATin [Lipitor] 40 mg PO QHS 01/21/22 01/21/22 Unknown History Clopidogrel [Plavix] 75 mg PO QDAY 90 Days #90 tab 01/21/22 Unknown Rx Hydralazine HCl 50 mg PO TID 01/21/22 01/21/22 Unknown History ISOSORBIDE MONOnitrate [Imdur ER] 30 mg PO DAILY 01/21/22 01/21/22 Unknown History Metoprolol Xl [Metoprolol 75 mg PO QPM 01/21/22 01/21/22 Unknown History SUCCINATE ER TAB] NIFEdipine [Nifedipine ER] 60 mg PO QDAY 01/21/22 01/21/22 Unknown History Nitroglycerin [Nitrostat] 0.4 mg SL Q5M PRN 30 Days #30 01/21/22 Unknown Rx tablet ED Physical Exam - General Limitations: No Limitations General appearance: alert, in no apparent distress - Head Head exam: Present: atraumatic, normocephalic - Eye Eye exam: Present: normal appearance - ENT ENT exam: Present: mucous membranes moist - Neck Neck exam: Present: normal inspection - Respiratory Respiratory exam: Present: normal lung sounds bilaterally. Absent: respiratory distress - Cardiovascular Cardiovascular Exam: Present: regular rate, normal rhythm. Absent: systolic murmur, diastolic murmur, rubs, gallop - GI/Abdominal GI/Abdominal exam: Present: soft, tenderness (There is tenderness noted to the lower abdomen. Right lower quadrant, suprapubic, left lower quadrant) - Extremities Exam Extremities exam: Present: normal inspection - Back Exam Back exam: Present: normal inspection - Neurological Exam Neurological exam: Present: alert, oriented X3 - Psychiatric Psychiatric exam: Present: normal affect, normal mood - Skin Skin exam: Present: warm, dry, intact, normal color. Absent: rash ED Course Vital Signs 01/20/22 01/20/22 01/20/22 10:52 16:43 18:23 Temperature 98.9 F 97.8 F 98.4 F Pulse Rate 64 65 64 Respiratory 16 20 20 Rate Blood Pressure 175/73 Blood Pressure 170/65 175/73 122/61 [Left] O2 Sat by Pulse 96 96 97 Oximetry 01/20/22 01/20/22 01/20/22 23:10 23:20 23:30 Temperature Pulse Rate 88 76 72 Respiratory 13 11 L 13 Rate Blood Pressure Blood Pressure [Left] O2 Sat by Pulse 90 94 97 Oximetry 01/20/22 01/20/22 01/21/22 23:40 23:50 00:00 Temperature Pulse Rate 82 75 73 Respiratory 13 15 15 Rate Blood Pressure Blood Pressure [Left] O2 Sat by Pulse 95 95 93 Oximetry 01/21/22 01/21/22 01/21/22 00:10 00:20 00:30 Temperature Pulse Rate 71 78 73 Respiratory 12 12 12 Rate Blood Pressure Blood Pressure [Left] O2 Sat by Pulse 91 94 94 Oximetry 01/21/22 01/21/22 01/21/22 00:40 00:50 01:00 Temperature Pulse Rate 73 71 71 Respiratory 14 15 10 L Rate Blood Pressure 153/123 164/71 Blood Pressure [Left] O2 Sat by Pulse 94 93 94 Oximetry 01/21/22 01/21/22 01/21/22 01:10 01:20 01:30 Temperature Pulse Rate 76 73 71 Respiratory 21 12 15 Rate Blood Pressure 164/71 170/78 170/78 Blood Pressure [Left] O2 Sat by Pulse 95 94 98 Oximetry 01/21/22 01/21/22 01/21/22 01:40 01:50 02:00 Temperature Pulse Rate 72 70 70 Respiratory 12 13 19 Rate Blood Pressure 170/78 170/78 170/78 Blood Pressure [Left] O2 Sat by Pulse 92 93 92 Oximetry 01/21/22 01/21/22 01/21/22 02:10 02:20 02:30 Temperature Pulse Rate 71 70 71 Respiratory 23 12 14 Rate Blood Pressure 170/78 170/78 170/78 Blood Pressure [Left] O2 Sat by Pulse 96 97 93 Oximetry 01/21/22 01/21/22 01/21/22 02:40 02:50 03:00 Temperature Pulse Rate 69 70 69 Respiratory 13 12 15 Rate Blood Pressure 170/78 170/78 170/78 Blood Pressure [Left] O2 Sat by Pulse 97 95 89 Oximetry 01/21/22 01/21/22 01/21/22 03:10 03:33 04:00 Temperature 98.1 F 98.1 F Pulse Rate 69 73 71 Respiratory 15 18 18 Rate Blood Pressure 170/78 151/87 Blood Pressure 151/87 [Left] O2 Sat by Pulse 96 93 94 Oximetry 01/21/22 01/21/22 01/21/22 04:25 07:28 08:52 Temperature 98.0 F 9706 F H Pulse Rate 67 82 Respiratory 16 16 Rate Blood Pressure 126/70 Blood Pressure 126/70 [Left] O2 Sat by Pulse 94 94 96 Oximetry 01/21/22 01/21/22 01/21/22 11:40 12:27 13:45 Temperature 97.5 F L Pulse Rate 62 89 70 Respiratory 18 Rate Blood Pressure 147/62 Blood Pressure 147/62 [Left] O2 Sat by Pulse 98 98 Oximetry 01/21/22 01/21/22 01/21/22 13:46 14:00 15:33 Temperature 98.0 F Pulse Rate 68 70 Respiratory 17 Rate Blood Pressure 147/62 156/75 Blood Pressure [Left] O2 Sat by Pulse 81 L Oximetry 01/21/22 01/21/22 15:36 16:00 Temperature 98.0 F Pulse Rate 87 Respiratory 18 Rate Blood Pressure Blood Pressure 156/87 [Left] O2 Sat by Pulse 86 94 Oximetry - Reevaluation(s) Reevaluation #1: Patient with NSTEMI, will start heparin drip, admit. ED Medical Decision Making - Lab Data Result diagrams: 01/20/22 17:58 01/21/22 16:17 - EKG Data -: EKG Interpreted by Me EKG shows normal: sinus rhythm Rate: normal - EKG Data Interpretation: nonspecific ST-T wave faith, LVH - Radiology Data Radiology results: report reviewed, image reviewed - Medical Decision Making Patient is a 46-year-old female present emergency department plaint chest pain. Differential includes ACS, pneumonia, urinary tract infection, appendicitis that she also reports some abdominal pain. Plan for evaluation with chest x- ray, CT scan abdomen pelvis, basic labs. Patient is given aspirin and morphine. Patient also is end-stage renal disease on hemodialysis. Patient may require dialysis. 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 Critical care attestation.: If time is entered above; I have spent that time in minutes in the direct care of this critically ill patient, excluding procedure time. ED Disposition Clinical Impression: NSTEMI (non-ST elevated myocardial infarction) Disposition: ADMITTED INPATIENT Is pt being admited?: Yes Does the pt Need Aspirin: Yes Condition: Stable
--- NOTE | 2022-01-20 17:12 | XRay Report ---
CHEST 1 VIEW 01/20/2022 4:05 PM INDICATION / CLINICAL INFORMATION: chest pain. COMPARISON: 01/09/2022 FINDINGS: SUPPORT DEVICES: None. HEART / MEDIASTINUM: Stable cardiomegaly LUNGS / PLEURA: Improved left perihilar infiltrates/edema. No significant pleural effusion. No pneumo thorax. ADDITIONAL FINDINGS: None IMPRESSION: 1. Improved left perihilar infiltrates and/or edema. 2. Stable cardiomegaly without other acute chest process. Signer Name: Tramaine Lizarraga MD Signed: 01/20/2022 5:07 PM Workstation Name: [id number]
--- NOTE | 2022-01-20 17:36 | Cat Scan Report ---
CT ABDOMEN AND PELVIS WITHOUT CONTRAST INDICATION / CLINICAL INFORMATION: RLQ, suprapubic abdominal pain. TECHNIQUE: Axial CT images were obtained through the abdomen and pelvis without IV contrast. All CT scans at this location are performed using CT dose reduction for ALARA by means of automated exposure control. COMPARISON: None available. FINDINGS: LOWER CHEST: Marked cardiac enlargement with mitral valve calcifications. There is no pericardial eff usion. Mosaic attenuation of the lung bases likely reflect pulmonary edema. There are bandlike opacit ies within both lung bases, likely reflecting volume loss. No pleural effusion. LIVER: Liver is enlarged, measuring 21.6 cm. Otherwise unremarkable unenhanced appearance. GALLBLADDER/BILIARY TREE: No significant abnormality PANCREAS: No significant abnormality SPLEEN: Splenomegaly, measuring 14.4 cm. ADRENALS: No significant abnormality KIDNEYS: Prominent bilateral renal atrophy with extensive vascular calcifications. No acute findings. No hydronephrosis. URINARY BLADDER: No significant abnormality REPRODUCTIVE ORGANS: Partially calcified 5.1 cm uterine fibroid. No suspicious adnexal mass. STOMACH / BOWEL: Stomach and small bowel are within normal limits. There is mild wall thickening of t he rectum. Appendix is normal in caliber. LYMPH NODES: No significant adenopathy. VASCULATURE: Severe arterial calcifications. No evidence of aneurysm. No acute findings. OTHER: Small volume perihepatic and perisplenic ascites and free fluid in the pelvis. No free air. No organized collection detected. SKELETAL SYSTEM: Right femoral hardware is partially imaged. Mild bilateral sacroiliitis. Degenerativ e changes of the pubic symphysis. There is ankylosis of T11-T12. No evidence of acute abnormality. IMPRESSION: 1. Mild mural thickening of the rectum, nonspecific but may reflect proctitis. 2. No other acute inflammation of the abdomen or pelvis. Appendix is normal in caliber. 3. CHF/volume overload with pulmonary edema and small volume free fluid in the abdomen and pelvis, li junaid related to volume overload/third spacing of fluid. 4. Nonspecific hepatosplenomegaly. 5. Mild bilateral sacroiliitis and degenerative changes of the pubic symphysis. 6. Multiple additional chronic and incidental findings as above. Signer Name: Timothy Gary MD Signed: 01/20/2022 5:32 PM Workstation Name: [email or web address]
[2022-01-20 17:58] LABS: Albumin 4.4 g/dL (3.9-5)
[2022-01-20] MEDS ORDERED: HEPARIN 10,000 UNITS/10 ML VIAL IV ONE (18:06)
[2022-01-20] MEDS ORDERED: HEPARIN 10,000 UNITS/10 ML VIAL IV PRN (18:06)
[2022-01-20 18:07] LABS: Hematocrit 24.8 % (30.3-42.9); Hemoglobin 8.6 gm/dl (10.1-14.3); Mean Corpuscular HGB Conc 35 % (30-34); Mean Corpuscular Volume 91 fl (79-97); Platelet Count 100 K/mm3 (140-440); Red Blood Count 2.72 M/mm3 (3.65-5.03); Red Cell Distribution Width 16.1 % (13.2-15.2)
[2022-01-20 18:15] LABS: Calcium 9.4 mg/dL (8.4-10.2)
[2022-01-20 18:49] LABS: INR 1.02 (0.87-1.13)
[2022-01-20 18:50] LABS: Partial Thromboplastin Time 35.2 Sec. (24.2-36.6)
[2022-01-20 18:58] LABS: Anisocytosis 1+; Basophils % (Manual) 0 % (0.0-1.8); Hypochromasia 1+; Monocytes % (Manual) 0 % (0.0-7.3); Platelet Estimate Consistent w Auto; Total Cells Counted 100
[2022-01-20] MEDS ORDERED: HEPARIN/ 0.45% NACL DRIP 25,000 UNIT/500 ML BAG IV SCH (19:00)
[2022-01-20] MEDS ORDERED: MORPHINE 2 MG/1 ML INJ IV PRN ×2 (22:05→22:52)
[2022-01-20] MEDS ORDERED: ACETAMINOPHEN 325 MG TAB PO PRN ×3 (22:05→23:10)
[2022-01-20] MEDS ORDERED: MORPHINE 4 MG/1 ML INJ IV PRN ×3 (22:05→23:10)
[2022-01-20] MEDS ORDERED: ONDANSETRON 4 MG/2 ML INJ IV PRN ×2 (22:05→22:52)
[2022-01-20] MEDS ORDERED: DEXTROSE 50% IN WATER (25GM) 50 ML SYRINGE IV PRN (22:52)
[2022-01-20] MEDS ORDERED: MAGNESIUM HYDROXIDE (MOM) ORAL LIQD UDC PO PRN (22:52)
--- NOTE | 2022-01-20 23:03 | History and Physical Report ---
History of Present Illness Date of examination: 01/20/22 Date of admission: 01/20/22 22:05 Chief complaint: Chest Pain Abdominal pain History of present illness: 46-year-old female with known history of diabetes mellitus, hypertension, and end-stage renal disease on dialysis presenting to the emergency room today complaining of chest pain and abdominal pain. Patient also indicates that she missed dialysis today. Last dialysis was on Wednesday. Chest pain started earlier today. Pain was substernal and sharp. No associated shortness of breath, no headache or dizziness and no diaphoresis. Patient denies any fever or chills, no cough. She denies any hematuria or dysuria. Patient still makes some urine. Work-up in the emergency room today, chest x-ray reveals perihilar infiltrates and/or pulmonary edema. Troponin was elevated at 0.135. EKG was unremarkable. CT abdomen and pelvis reveals: 1. Mild mural thickening of the rectum, nonspecific but may reflect proctitis. 2. No other acute inflammation of the abdomen or pelvis. Appendix is normal in caliber. 3. CHF/volume overload with pulmonary edema and small volume free fluid in the abdomen and pelvis, likely related to volume overload/third spacing of fluid. 4. Nonspecific hepatosplenomegaly. 5. Mild bilateral sacroiliitis and degenerative changes of the pubic symphysis. 6. Multiple additional chronic and incidental findings as above. Patient has been admitted for chest pain evaluation and also for her hypervolemia. Past History Past Medical History: diabetes, dialysis, ESRD, hypertension Past Surgical History: Other (left arm AV fistula placement) Social history: no significant social history Family history: no significant family history Medications and Allergies Allergies Allergy/AdvReac Type Severity Reaction Status Date / Time No Known Allergies Allergy Verified 01/20/22 11:03 Home Medications Medication Instructions Recorded Confirmed Last Taken Type Metoprolol [Lopressor TAB] 100 mg PO BID #60 tablet 06/03/17 Unknown Rx Renvela 800 mg PO WMHS #30 06/03/17 Unknown Rx lisinopriL [Zestril TAB] 20 mg PO BID #60 tablet 06/03/17 Unknown Rx Active Meds: Active Medications Acetaminophen (Acetaminophen 325 Mg Tab) 650 mg PO Q4H PRN PRN Reason: Pain MILD(1-3)/Fever >100.5/CARDENAS Acetaminophen (Acetaminophen 325 Mg Tab) 650 mg PO Q4H PRN PRN Reason: Pain MILD(1-3)/Fever >100.5/CARDENAS Dextrose (Dextrose 50% In Water (25gm) 50 Ml Syringe) 50 ml IV Q30MIN PRN; Protocol PRN Reason: Hypoglycemia Dextrose (Dextrose 50% In Water (25gm) 50 Ml Syringe) 50 ml IV Q30MIN PRN; Protocol PRN Reason: Hypoglycemia Heparin Sodium (Porcine) (Heparin 10,000 Units/10 Ml Vial) 4,400 unit 40 unit/kg (4400 unit) IV Q6H PRN PRN Reason: Anti-Xa Assay < 0.1 units/ml Heparin Sodium/Sodium Chloride (Heparin/ 0.45% Nacl-25,000 Unit/500 Ml) 25,000 unit in 500 mls @ 20 mls/hr IV TITRATE ANTHONY; Protocol Insulin Human Lispro (Insulin Lispro 100 Unit/Ml) 0 unit SUB-Q ACHS ANTHONY; Protocol Magnesium Hydroxide (Magnesium Hydroxide (Mom) Oral Liqd Udc) 30 ml PO Q4H PRN PRN Reason: Constipation Morphine Sulfate (Morphine 2 Mg/1 Ml Inj) 2 mg IV Q4H PRN PRN Reason: Pain, Moderate (4-6) Morphine Sulfate (Morphine 4 Mg/1 Ml Inj) 4 mg IV Q4H PRN PRN Reason: Pain , Severe (7-10) Morphine Sulfate (Morphine 2 Mg/1 Ml Inj) 2 mg IV Q4H PRN PRN Reason: Pain, Moderate (4-6) Morphine Sulfate (Morphine 4 Mg/1 Ml Inj) 4 mg IV Q4H PRN PRN Reason: Pain , Severe (7-10) Ondansetron HCl (Ondansetron 4 Mg/2 Ml Inj) 4 mg IV Q8H PRN PRN Reason: Nausea And Vomiting Ondansetron HCl (Ondansetron 4 Mg/2 Ml Inj) 4 mg IV Q8H PRN PRN Reason: Nausea And Vomiting Sodium Chloride (Sodium Chloride 0.9% 10 Ml Flush Syringe) 10 ml IV BID ANTHONY Sodium Chloride (Sodium Chloride 0.9% 10 Ml Flush Syringe) 10 ml IV PRN PRN PRN Reason: LINE FLUSH Sodium Chloride (Sodium Chloride 0.9% 10 Ml Flush Syringe) 10 ml IV BID ANTHONY Sodium Chloride (Sodium Chloride 0.9% 10 Ml Flush Syringe) 10 ml IV PRN PRN PRN Reason: LINE FLUSH Review of Systems Constitutional: no fever, no chills Ears, nose, mouth and throat: no nasal congestion, no sore throat Cardiovascular: chest pain, no palpitations Respiratory: no cough, no shortness of breath Gastrointestinal: no nausea, no vomiting, no diarrhea Genitourinary Female: no pelvic pain, no flank pain, no dysuria, no hematuria Musculoskeletal: no neck pain, no low back pain Neurological: no headaches, no confusion Psychiatric: no anxiety, no depression Endocrine: no polyphagia, no polydipsia, no polyuria, no nocturia Exam - Constitutional Vitals: Temp Pulse Resp BP Pulse Ox 98.4 F 64 20 122/61 97 01/20/22 18:23 01/20/22 18:23 01/20/22 18:23 01/20/22 18:23 01/20/22 18:23 General appearance: Present: no acute distress, well-nourished - EENT Eyes: Present: PERRL, EOM intact. Absent: scleral icterus ENT: hearing intact, clear oral mucosa, dentition normal - Neck Neck: Present: supple, normal ROM - Respiratory Respiratory effort: normal Respiratory: bilateral: diminished - Cardiovascular Rhythm: regular Heart Sounds: Present: S1 & S2. Absent: gallop, systolic murmur, diastolic murmur, rub, click - Extremities Extremities: no ischemia, pulses intact, pulses symmetrical, No edema, normal temperature, normal color, Full ROM Peripheral Pulses: within normal limits - Abdominal General gastrointestinal: Present: soft, non-tender, non-distended, normal bowel sounds. Absent: mass - Integumentary Integumentary: Present: clear, warm, dry, normal turgor. Absent: rash - Musculoskeletal Musculoskeletal: strength equal bilaterally - Psychiatric Psychiatric: appropriate mood/affect, intact judgment & insight, memory intact, cooperative - Neurologic Neurologic: CNII-XII intact, no focal deficits, moves all extremities HEART Score - HEART Score History: Moderately suspicious EKG: Non-specific Age: 45-65 Risk factors: 1-2 risk factors Troponin: Troponin T 0.135 ng/mL (0.00-0.029) H* 01/20/22 17:15 Troponin: < normal limit HEART Score: 4 Results - Labs CBC & Chem 7: 01/20/22 17:58 01/20/22 23:16 Labs: Abnormal lab results 01/20/22 01/20/22 Range/Units 17:15 17:58 WBC 2.2 L (4.5-11.0) K/mm3 RBC 2.72 L (3.65-5.03) M/mm3 Hgb 8.6 L (10.1-14.3) gm/dl Hct 24.8 L (30.3-42.9) % MCHC 35 H (30-34) % RDW 16.1 H (13.2-15.2) % Plt Count 100 L (140-440) K/mm3 Seg Neuts % (Manual) 92.0 H (40.0-70.0) % Lymphocytes % (Manual) 6.0 L (13.4-35.0) % Lymphocytes # (Manual) 0.1 L (1.2-5.4) K/mm3 BUN 39 H (7-17) mg/dL Creatinine 8.9 H (0.6-1.2) mg/dL Glucose 113 H (65-100) mg/dL Troponin T 0.135 H* (0.00-0.029) ng/mL LDL Cholesterol Direct 43 L (50-130) mg/dL Assessment and Plan Assessment: 1. Chest pain with NSTEMI 2. Pulmonary edema 3. End-stage renal disease on dialysis 4.D/mellitus 5.Hypertension Plan: 1.Patient admitted and placed on telemetry 2.Will check serial cardiac enzymes 3. We will place consult to cardiology for evaluation and recommendations. 4. Consult to be placed to nephrology to evaluate for dialysis. DVT prophylaxis: On heparin drip Code Status: Full Code
[2022-01-20] MEDS ORDERED: traMADol 50 MG TAB PO PRN (23:10)
[2022-01-20] MEDS ORDERED: NITROGLYCERIN 0.4 MG TAB SUBL SL PRN (23:10)
--- NOTE | 2022-01-20 23:24 | Vascular Lab Report ---
DUPLEX DOPPLER LOWER EXTREMITY VEINS, BILATERAL INDICATION / CLINICAL INFORMATION: BLE swelling; chest pain. TECHNIQUE: Duplex doppler imaging was performed through the veins of both lower extremities using venous ashlyn josiah and other maneuvers. COMPARISON: None available. FINDINGS: Right Common Femoral vein: Negative. Right Femoral vein: Negative. Right Popliteal vein: Negative. Right Calf veins: Negative. Left Common Femoral vein: Negative. Left Femoral vein: Negative. Left Popliteal vein: Negative. Left Calf veins: Negative. Additional findings: Prominent subcutaneous edema of both lower extremities. IMPRESSION: 1. No sonographic evidence for DVT in either lower extremity. Signer Name: Wayne Elliott MD Signed: 01/20/2022 11:20 PM Workstation Name: [id number]
[2022-01-21 00:02] LABS: Calcium 9.2 mg/dL (8.4-10.2)
[2022-01-21] MEDS: INSULIN LISPRO 100 UNIT/ML SUB-Q SCH ×3 (08:00→17:30)
--- NOTE | 2022-01-21 09:16 | Consultation ---
History of Present Illness - History of Present Illness Thank you for the consultation ! Patient was evaluated today, My assessment and plan are as follows #End-stage kidney disease: Currently dialysis dependent being dialyzed at [facility] dialysis facility, Patient appears comfortable, she is no distress, undergoing cardiac work-up, there is no urgent or emergent indication for renal placement therapy today the patient is here tomorrow can consider for hemodialysis otherwise will follow clinically she is resting comfortably very few crackles in the lung bases, work- up for chest pain is in progress, Monitor dialysis related labs/monitor for any access issues Fluid restriction 1200 cc/day high-protein diet #Access: Needs to be monitored during dialysis , Current access is a fistula there were no immediate issues patient is already scheduled to see vascular surgery in outpatient setting, #Hypertension and volume: Admitted with volume overload #Anemia in end-stage kidney disease: Evidence of pancytopenia patient will need to see hematology in the outpatient setting will give erythropoietin Bone mineral disorder and secondary hyperparathyroidism; Monitor phosphorus binders as necessary goal phosphorus less than 5-1/2, will check dialysis records #Diet and nutrition: High-protein diet, multivitamin, Nepro, #Medication recommendation: Avoid milk of magnesia and dialysis patient, all All related questions have been addressed with the patient including diet lifestyle changes fluid restriction sodium restrictions avoidance of processed food as much as possible If you have any question in regards to this patient renal care please feel free to contact me at [phone] Author: Prabhjot Palacios M.D. [facility], [address] [place] [address] Tel; [phone] [employer] Source of information: From patient, current chart History of present illness Patient is a 46-year-old female who has been established with us for her end- stage kidney disease care and she is being dialyzed Wednesday at [facility], she is established with our practice presented hospital with complaints of abdominal pain chest pain work-up is in progress, events of this hospitalization have been noted, patient has no current allergies, labs from this hospitalization shows evidence of pancytopenia WBC 2.2 hemoglobin 8.6 platelet count is 100,000, imaging showed evidence of volume overload, she has borderline elevated troponin her potassium is 4.1 BUN 42 creatinine 8.3 Past medical history: End-stage kidney disease Hypertension Anemia in end-stage kidney disease Secondary hyperparathyroidism Diabetes Current allergies: Reviewed from the current chart Social history: Reviewed from the current chart Family history: Reviewed from the current chart Review of system: Admitted with chest pain, Positive for abdominal pain work-up in progress, All other review of systems negative Physical examination Vitals: Reviewed General: No acute distress HEENT: Oral mucosa moist no pallor or icterus Neck: Supple without any JVD thyromegaly or nodular mass Chest: Bilateral Very faint basilar crackles Heart: Regular rate and rhythm S1-S2 heard no S3-S4 Abdomen: Soft nontender, bowel sounds present no renal bruit no suprapubic masses no CVA tenderness noted Extremity: Minimal edema dry skin no peripheral cyanosis Endocrine: Thyroid not enlarged Psychiatric: No agitation and aggression noted Musculoskeletal: No joint effusion noted Labs and x-rays: Reviewed from this admission Past History Past Medical History: diabetes, dialysis, ESRD, hypertension Past Surgical History: Other (left arm AV fistula placement) Social history: no significant social history Family history: no significant family history Medications and Allergies Allergies Allergy/AdvReac Type Severity Reaction Status Date / Time No Known Allergies Allergy Verified 01/20/22 11:03 Home Medications Medication Instructions Recorded Confirmed Last Taken Type Aspirin EC [Ecotrin] 325 mg PO QDAY 30 Days #30 tablet 01/21/22 Unknown Rx AtorvaSTATin [Lipitor] 40 mg PO QHS 01/21/22 01/21/22 Unknown History Clopidogrel [Plavix] 75 mg PO QDAY 90 Days #90 tab 01/21/22 Unknown Rx Hydralazine HCl 50 mg PO TID 01/21/22 01/21/22 Unknown History ISOSORBIDE MONOnitrate [Imdur ER] 30 mg PO DAILY 01/21/22 01/21/22 Unknown History Metoprolol Xl [Metoprolol 75 mg PO QPM 01/21/22 01/21/22 Unknown History SUCCINATE ER TAB] NIFEdipine [Nifedipine ER] 60 mg PO QDAY 01/21/22 01/21/22 Unknown History Nitroglycerin [Nitrostat] 0.4 mg SL Q5M PRN 30 Days #30 01/21/22 Unknown Rx tablet Active Meds: Active Medications Acetaminophen (Acetaminophen 325 Mg Tab) 650 mg PO Q4H PRN PRN Reason: Pain MILD(1-3)/Fever >100.5/CARDENAS Aspirin (Aspirin Ec 325 Mg Tab) 325 mg PO QDAY ANTHONY Dextrose (Dextrose 50% In Water (25gm) 50 Ml Syringe) 50 ml IV Q30MIN PRN; Protocol PRN Reason: Hypoglycemia Heparin Sodium/Sodium Chloride (Heparin/ 0.45% Nacl-25,000 Unit/500 Ml) 25,000 unit in 500 mls @ 20 mls/hr IV TITRATE ANTHONY; Protocol Last Admin: 01/21/22 01:29 Dose: 1,000 units/hr, 20 mls/hr Insulin Human Lispro (Insulin Lispro 100 Unit/Ml) 0 unit SUB-Q ACHS ANTHONY; Protocol Magnesium Hydroxide (Magnesium Hydroxide (Mom) Oral Liqd Udc) 30 ml PO Q4H PRN PRN Reason: Constipation Morphine Sulfate (Morphine 2 Mg/1 Ml Inj) 2 mg IV Q4H PRN PRN Reason: Pain, Moderate (4-6) Last Admin: 01/21/22 06:16 Dose: 2 mg Morphine Sulfate (Morphine 4 Mg/1 Ml Inj) 4 mg IV Q4H PRN PRN Reason: Pain , Severe (7-10) Last Admin: 01/21/22 01:27 Dose: 4 mg Morphine Sulfate (Morphine 4 Mg/1 Ml Inj) 2 mg IV Q5MIN PRN PRN Reason: Chest Pain unrelieved by NTG Nitroglycerin (Nitroglycerin 0.4 Mg Tab Subl) 0.4 mg SL Q5M PRN PRN Reason: Chest Pain Ondansetron HCl (Ondansetron 4 Mg/2 Ml Inj) 4 mg IV Q8H PRN PRN Reason: Nausea And Vomiting Sodium Chloride (Sodium Chloride 0.9% 10 Ml Flush Syringe) 10 ml IV BID ANTHONY Sodium Chloride (Sodium Chloride 0.9% 10 Ml Flush Syringe) 10 ml IV PRN PRN PRN Reason: LINE FLUSH Tramadol HCl (Tramadol 50 Mg Tab) 50 mg PO Q6H PRN PRN Reason: Pain, Moderate (4-6) Exam - Vital Signs Vital signs: Vital Signs Temp Pulse Resp BP Pulse Ox 98.9 F 64 16 170/65 96 01/20/22 10:52 01/20/22 10:52 01/20/22 10:52 01/20/22 10:52 01/20/22 10:52 Results - Lab Results 01/20/22 17:58 01/21/22 16:17 Most recent lab results Calcium 9.2 mg/dL (8.4-10.2) 01/20/22 23:16
[2022-01-21] MEDS ORDERED: ASPIRIN EC 325 MG TAB PO SCH (10:00)
--- NOTE | 2022-01-21 12:47 | Consultation ---
History of Present Illness Consult date: 01/21/22 Requesting physician: JOSÉ GARCIA Consult reason: chest pain History of present illness: Patientis a 46 y.o.femalewith pmhx ofESRD on HD(TTS), cardiomyopathy (EF35-40%), CAD, DM2, HTN,Blind in right eye, andObesity who presents to the ED with complaint of chest pain and abdominal pain x1 day. Patient reports that she developed sudden sharp stabbing centrally located chest pain which she rated at 9 out of 10 when it pain began yesterday morning. She reports pain is worsened by deep breathing and palpation. At time of interview patient reports pain has decreased and is between 6-7 out of 10. Patient came to the ED for further evaluation. In the ED CXR showed perihilar infiltrates versus pulmonary edema. Patient had elevated troponins. Of note she reports that she has missed her dialysis session and patient was recently admitted to [place] this past November for similar complaints. She denies nausea, vomiting, diaphoresis, palpitations, lightheadedness. Patient is previously unknown to our practice. Cardiology is consulted for chest pain. Past History Past Medical History: CAD, diabetes, dialysis, ESRD, hypertension Past Surgical History: Other (left arm AV fistula placement) Social history: no significant social history Family history: no significant family history Medications and Allergies Allergies Allergy/AdvReac Type Severity Reaction Status Date / Time No Known Allergies Allergy Verified 01/20/22 11:03 Home Medications Medication Instructions Recorded Confirmed Last Taken Type Aspirin [Aspirin BABY CHEW TAB] 81 mg PO QDAY 01/21/22 01/21/22 Unknown History AtorvaSTATin [Lipitor] 40 mg PO QHS 01/21/22 01/21/22 Unknown History Clopidogrel [Plavix] 75 mg PO QDAY 01/21/22 01/21/22 Unknown History Hydralazine HCl 50 mg PO TID 01/21/22 01/21/22 Unknown History ISOSORBIDE MONOnitrate [Imdur ER] 30 mg PO DAILY 01/21/22 01/21/22 Unknown Hist ory Metoprolol Xl [Metoprolol 75 mg PO QPM 01/21/22 01/21/22 Unknown History SUCCINATE ER TAB] NIFEdipine [Nifedipine ER] 60 mg PO QDAY 01/21/22 01/21/22 Unknown History Active Meds: Active Medications Acetaminophen (Acetaminophen 325 Mg Tab) 650 mg PO Q4H PRN PRN Reason: Pain MILD(1-3)/Fever >100.5/CARDENAS Aspirin (Aspirin Ec 325 Mg Tab) 325 mg PO QDAY [facility] Last Admin: 01/21/22 12:12 Dose: 325 mg Atorvastatin Calcium (Atorvastatin 40 Mg Tab) 40 mg PO QHS [facility] Dextrose (Dextrose 50% In Water (25gm) 50 Ml Syringe) 50 ml IV Q30MIN PRN; Protocol PRN Reason: Hypoglycemia Epoetin Guillermo-epbx (Epoetin Guillermo-Epbx 20,000 Unit/1 Ml Vial) 20,000 unit SUB-Q THAI [facility] Heparin Sodium/Sodium Chloride (Heparin/ 0.45% Nacl-25,000 Unit/500 Ml) 25,000 unit in 500 mls @ 20 mls/hr IV TITRATE [facility]; Protocol Last Admin: 01/21/22 01:29 Dose: 1,000 units/hr, 20 mls/hr Sodium Chloride (Nacl 0.9%) 100 mls @ 999 mls/hr IV THAI PRN PRN Reason: Hypotension Insulin Human Lispro (Insulin Lispro 100 Unit/Ml) 0 unit SUB-Q ACHS [facility]; Protocol Last Admin: 01/21/22 12:23 Dose: Not Given Isosorbide Mononitrate (Isosorbide Mononitrate Er 30 Mg Tab) 30 mg PO DAILY [facility] Magnesium Hydroxide (Magnesium Hydroxide (Mom) Oral Liqd Udc) 30 ml PO Q4H PRN PRN Reason: Constipation Metoprolol Succinate (Metoprolol Succinate Xl 25 Mg Tab) 75 mg PO QPM [facility] Miscellaneous Medication (Hydralazine Hcl [Hydralazine Hcl]) 50 mg PO TID [facility] Morphine Sulfate (Morphine 2 Mg/1 Ml Inj) 2 mg IV Q4H PRN PRN Reason: Pain, Moderate (4-6) Last Admin: 01/21/22 06:16 Dose: 2 mg Morphine Sulfate (Morphine 4 Mg/1 Ml Inj) 4 mg IV Q4H PRN PRN Reason: Pain , Severe (7-10) Last Admin: 01/21/22 01:27 Dose: 4 mg Morphine Sulfate (Morphine 4 Mg/1 Ml Inj) 2 mg IV Q5MIN PRN PRN Reason: Chest Pain unrelieved by NTG Nitroglycerin (Nitroglycerin 0.4 Mg Tab Subl) 0.4 mg SL Q5M PRN PRN Reason: Chest Pain Ondansetron HCl (Ondansetron 4 Mg/2 Ml Inj) 4 mg IV Q8H PRN PRN Reason: Nausea And Vomiting Sodium Chloride (Sodium Chloride 0.9% 10 Ml Flush Syringe) 10 ml IV BID ANTHONY Last Admin: 01/21/22 12:23 Dose: 10 ml Sodium Chloride (Sodium Chloride 0.9% 10 Ml Flush Syringe) 10 ml IV PRN PRN PRN Reason: LINE FLUSH Tramadol HCl (Tramadol 50 Mg Tab) 50 mg PO Q6H PRN PRN Reason: Pain, Moderate (4-6) Review of Systems Constitutional: no weight loss, no weight gain, no fever, no sweats Ears, nose, mouth and throat: no sinus pressure, no sinus pain Cardiovascular: chest pain, no orthopnea, no palpitations, no shortness of breath, no dyspnea on exertion Respiratory: pain on inspiration, no shortness of breath, no dyspnea on exertion Gastrointestinal: abdominal pain, no nausea, no vomiting Musculoskeletal: no neck stiffness, no neck pain Integumentary: no rash, no pruritis, no redness Neurological: no head injury, no transient paralysis Psychiatric: no anxiety, no memory loss, no change in sleep habits Endocrine: no cold intolerance, no heat intolerance Hematologic/Lymphatic: no easy bruising, no easy bleeding Physical Examination Vital Signs Temp Pulse Resp BP Pulse Ox 98.9 F 64 16 170/65 96 01/20/22 10:52 01/20/22 10:52 01/20/22 10:52 01/20/22 10:52 01/20/22 10:52 General appearance: no acute distress HEENT: Negative: PERRL Neck: Positive: trachea midline Cardiac: Positive: Reg Rate and Rhythm, Diastolic Murmur Lungs: Positive: Decreased Breath Sounds Neuro: Positive: Grossly Intact Abdomen: Positive: Soft Skin: Negative: Rash, Suspicious Lesions, Ulceration Extremities: Present: upper extr. pulses. Absent: edema Results 01/20/22 17:58 01/20/22 23:16 Cardiac Enzymes 01/20/22 Range/Units 17:15 AST 13 (5-40) units/L Coagulation 01/20/22 Range/Units 18:25 PT 14.5 (12.2-14.9) Sec. INR 1.02 (0.87-1.13) APTT 35.2 (24.2-36.6) Sec. Lipids 01/20/22 Range/Units 17:15 Triglycerides 67 (2-149) mg/dL Cholesterol 108 (50-199) mg/dL HDL Cholesterol 54 (40-59) mg/dL Cholesterol/HDL Ratio 2.00 % CBC 01/20/22 Range/Units 17:58 WBC 2.2 L (4.5-11.0) K/mm3 RBC 2.72 L (3.65-5.03) M/mm3 Hgb 8.6 L (10.1-14.3) gm/dl Hct 24.8 L (30.3-42.9) % Plt Count 100 L (140-440) K/mm3 Comprehensive Metabolic Panel 01/20/22 01/20/22 Range/Units 17:15 23:16 Sodium 145 144 (137-145) mmol/L Potassium 3.9 4.1 (3.6-5.0) mmol/L Chloride 100.7 102.0 (98-107) mmol/L Carbon Dioxide 28 25 (22-30) mmol/L BUN 39 H 42 H (7-17) mg/dL Creatinine 8.9 H 8.3 H (0.6-1.2) mg/dL Glucose 113 H 107 H (65-100) mg/dL Calcium 9.4 9.2 (8.4-10.2) mg/dL AST 13 (5-40) units/L ALT 16 (7-56) units/L Alkaline Phosphatase 76 (35-129) units/L Total Protein 7.2 (6.3-8.2) g/dL Albumin 4.4 (3.9-5) g/dL - Imaging and Cardiology Echo: report reviewed Cardiac cath: report reviewed EKG: report reviewed, image reviewed EKG interpretations - Telemetry EKG Rhythm: Sinus Rhythm - EKG Sinus rhythms and dysrhythmias: sinus rhythm AV and intraventricular conduction: intraventricular conducti Assessment and Plan Patientis a 46 y.o.femalewith pmhx ofESRD on HD(TTS), cardiomyopathy (EF35-40%), CAD, DM2, HTN,Blind in right eye, andObesity who presents to the ED with complaint of chest pain and abdominal pain x1 day. Atypical chest pain NSTEMI suspect type II Coronary artery disease End-stage renal disease on hemodialysis-nephrology following Hypertension Diabetes Obesity Anemia Cardiac cath 12/04/2021- 1. Left main artery: 0 % 2. Proximal left anterior descending artery: 30% 3. Mid-Distal left anterior descending artery: 40% 1. Diagonal artery: Diffusely diseased artery with serial 80 to 90% lesion in segment appears occluded with some left to left collaterals. Does not appear to be a good target for intervention 4. Circumflex/obtuse marginal artery: Very large territory, 10-20% 5. Right coronary artery: Small, nondominant, 20%. There appears to be a heavily calcified lesion within the conus branch 6. Coronary dominance: _Left_ 7. Left ventricle ejection fraction: 30 % 8. Left ventricle wall motion: Anterolateral akinesis with global hypokinesis 9. LVEDP: 20 mm Hg 10. LV-Aorta gradient: 0 mm Hg Severe diagonal artery disease as detailed above, not a good candidate for intervention. Would recommend treating this conservatively Echo 12/01/2021- LVEF 35 - 40%. LV systolic function is moderately decreased Mild concentric LV hypertrophy Hypokinetic basal anterolateral, mid anterior, mid anterolateral, apical anterior, apical lateral and apex LV wall. Systolic septal flattening consistent with RV pressure overload. RV systolic function is mildly reduced.Unable to assess LV diastolic function. RV moderately dilated. RV systolic function is moderately reduced. LA moderately dilated. Unclear echo dense structure noted on the roof of LA. Atrial Septal bowing noted into the LA suggestive of Right sided pressure increase. Moderate mitral regurgitation. Moderate to severe tricuspid regurgitation Mild to moderate pulmonary regurgitation. Compared to previous echo, there are significant changes. Plan: EKG shows sinus rhythm 66 with IVCD. No acute ischemic changes. Patient's chest pain is atypical worse with palpation and deep breathing also described as sharp and stabbing Troponin is noted to be elevated and stable. Suspect NSTEMI type II in setting of end-stage renal disease with missed hemodialysis session Patient had recent cardiac cath in [place] in November cath results noted above. Stent placement was not deemed necessary and it was recommended patient have me dical management and recommended patient be on Plavix patient currently on atorvastatin 40 mg p.o. nightly, Imdur 30 mg p.o. daily, metoprolol XL 75 mg p.o. daily, Will initiate Plavix 75 mg p.o. daily Cardiac status appears otherwise stable Patient should follow with her primary mainframe software developer 1 to 2 weeks after discharge. Patient may follow-up with our group, [facility] sales recruitment specialist, in 1 to 2 weeks after discharge. Phone #[phone] Patient seen in conjunction with Dr. Suarez who agrees this plan of care - Patient Problems (1) Coronary artery disease Current Visit: Yes Status: Acute (2) Anemia Current Visit: No Status: Acute (3) Chest pain Current Visit: No Status: Acute (4) Diabetes Current Visit: No Status: Acute (5) Elevated troponin Current Visit: No Status: Acute (6) End stage renal disease Current Visit: No Status: Acute (7) Fluid overload Current Visit: No Status: Acute Qualifiers: Hypervolemia type: other Qualified Code(s): E87.79 - Other fluid overload (8) GERD (gastroesophageal reflux disease) Current Visit: No Status: Acute Qualifiers: Esophagitis presence: without esophagitis Qualified Code(s): K21.9 - Gastro-esophageal reflux disease without esophagitis (9) Hypertension Current Visit: No Status: Acute Qualifiers: Hypertension type: primary hypertension Qualified Code(s): I10 - Essential (primary) hypertension (10) Missed dialysis Current Visit: No Status: Acute (11) Obesity hypoventilation syndrome Current Visit: No Status: Acute (12) Pulmonary edema Current Visit: No Status: Acute Qualifiers: Chronicity: acute Qualified Code(s): J81.0 - Acute pulmonary edema
[2022-01-21] MEDS ORDERED: SODIUM CHLORIDE 0.9% 100 ML IV PRN (13:00)
[2022-01-21] MEDS ORDERED: NON-FORMULARY EACH (Hydralazine Hcl [Hydralazine Hcl] 50 MG Tablet) PO SCH (14:00)
[2022-01-21] MEDS ORDERED: hydrALAZINE 25 MG TAB PO SCH (14:00)
[2022-01-21] MEDS ORDERED: EPOETIN ALFA-EPBX 20,000 UNIT/1 ML VIAL SUB-Q SCH (14:00)
--- NOTE | 2022-01-21 14:04 | Discharge Summary ---
Providers - Providers Date of Admission: 01/20/22 22:05 Date of discharge: 01/21/22 Attending physician: CHRISSY HALL MD 01/20/22 Consult to Cardiac Rehabilitation [CONS] Routine Reason For Exam: Phase I 01/20/22 22:07 Consult to Physician [CONS] Urgent Comment: Consulting Provider: MARJORIE JOHNSON Physician Instructions: Reason For Exam: esrd on hd 01/20/22 22:52 Consult to Dietitian/Nutrition [CONS] Routine Physician Instructions: Reason For Exam: Needs nepro BID Reason for Consult: Diet education 01/20/22 23:10 Consult to Cardiology [CONS] Routine Consulting Provider: LE ELAM Reason For Exam: chest pain Primary care physician: DISTRIBUTOR OF DIRECTORIES Hospitalization Reason for admission: ACS rule out Condition: Stable Hospital course: 46-year-old female with history of diabetes, hypertension and ESRD on HD who presented with chest and abdominal pain after missed dialysis. Troponin was found to be elevated 0.135 with unremarkable EKG. Chest x-ray showed perihilar infiltrates and pulmonary edema. CT of the abdomen and pelvis showed mild mural thickening of the rectum that was nonspecific, pulmonary edema and CHF/volume overload. Nephrology was consulted and patient was dialyzed. It is duplex of bilateral lower extremities negative for DVT. Cardiology was consulted and decision was made for patient to continue with medical management given recent cardiac cath in November 2021. Patient was noted to have coronary artery disease and stent was not placed at that time. Patient was advised to follow-up with her sheet metal assembler at discharge. Disposition: 01 HOME / SELF CARE / HOMELESS Final Discharge Diagnosis (Prints w/discharge instructions): Atypical chest pain. NSTEMI type II. Coronary artery disease. ESRD requiring hemodialysis. Hypertension. Diabetes. Obesity. Normocytic anemia Time spent for discharge: 30 minutes Core Measure Documentation - Palliative Care Palliative Care/ Comfort Measures: Not Applicable - Core Measures Any of the following diagnoses?: history only Exam - Physical Exam Narrative exam: GENERAL: Thin woman. In no acute distress. HEENT: Normocephalic. Atraumatic. NECK: Supple. CHEST/LUNGS: CTAB on room air HEART/CARDIOVASCULAR: RRR. No murmur, rubs or gallops appreciated. ABDOMEN: +BS. NT/ND. SKIN: No rashes noted. NEURO: No focal motor deficit. Follows all commands. MUSCULOSKELETAL: No joint effusion EXTREMITIES: LUE AVF. No cyanosis, clubbing or edema. PSYCH: Cooperative. - Constitutional Vitals: Temp Pulse Resp BP Pulse Ox 97.5 F L 70 18 147/62 98 01/21/22 12:27 01/21/22 13:45 01/21/22 12:27 01/21/22 13:46 01/21/22 12:27 Plan Care Plan Goals: Please follow with your primary care provider. Please make sure to take all medications as they are prescribed to you. You should follow-up with your sheet metal assembler in the next 1 to 2 weeks OR you may follow-up with the sheet metal assembler group you were seen by in this hospital, [facility] client success specialist, in 1 to 2 weeks after discharge. Phone #[phone]. Please make sure to continue to go to dialysis every Wednesday, and Wednesday. Follow up with: PRIMARY CARE, [Primary Care Provider] - 3-5 Days Prescriptions: Aspirin EC [Ecotrin] 325 mg PO QDAY 30 Days #30 tablet Nitroglycerin [Nitrostat] 0.4 mg SL Q5M PRN 30 Days #30 tablet PRN Reason: Chest Pain Clopidogrel [Plavix] 75 mg PO QDAY 90 Days #90 tab
[2022-01-21 17:49] LABS: Calcium 8.5 mg/dL (8.4-10.2)
[2022-01-21] MEDS ORDERED: METOPROLOL SUCCINATE XL 25 MG TAB PO SCH (18:00)
--- NOTE | 2022-01-21 18:09 | Electrocardiograph Report ---
[facility] Test Date: 2022-01-20 Test Time: 16:35:30 Pat Name: MIMI HASTINGS Department: Room: A465 1 Gender: F Copyright Clerk: 911 : 1975 Requested By: JOSÉ GARCIA Order Number: [id number] Reading MD: Navya Duran Measurements Intervals [place] Rate: 64 P: 36 PA: 169 QRS: -10 QRSD: 130 T: 92 QT: 437 QTc: 452 Interpretive Statements Sinus rhythm Probable left atrial enlargement Left ventricular hypertrophy Left anterior fascicular block Compared to ECG 01/09/2022 13:28:36 No significant changes Electronically Signed On 01-21-2022 18:09:02 EDT by Navya Duran
[2022-01-21 18:13] VITALS: BP 156/75
--- NOTE | 2022-01-21 18:14 | Electrocardiograph Report ---
[facility] Test Date: 2022-01-21 Test Time: 07:28:42 Pat Name: MIMI HASTINGS Department: Room: A465 1 Gender: F Conciliation Court Judge: NITA : 1975 Requested By: LJ BLAND Order Number: [id number] Reading MD: Navya Duran Measurements Intervals [place] Rate: 66 P: 34 [place]: 174 QRS: -11 QRSD: 123 T: 92 QT: 445 QTc: 467 Interpretive Statements Sinus rhythm Nonspecific intraventricular conduction delay, consider left anterior fascicular block Compared to ECG 01/09/2022 13:28:36 No significant change Electronically Signed On 01-21-2022 18:14:40 EDT by Navya Duran
--- NOTE | 2022-01-21 18:17 | Electrocardiograph Report ---
[facility] Test Date: 2022-01-21 Test Time: 11:30:43 Pat Name: MIMI HASTINGS Department: Room: A465 1 Gender: F Commanding Officer [employer]: NITA : 1975 Requested By: JOSÉ GARCIA Order Number: [id number] Reading MD: Navya Duran Measurements Intervals [place] Rate: 62 P: 33 AL: 170 QRS: -6 QRSD: 125 T: 62 QT: 443 QTc: 451 Interpretive Statements Sinus rhythm Left anterior fascicular block Compared to ECG 01/21/2022 07:28:42 No significant changes Electronically Signed On 01-21-2022 18:16:21 EDT by Navya Duran
== END 2022-01-21 20:00 | disposition home or self-care (01) ==
LOC: ED 10:51 → 3A 22:05 → INTOOBSV 22:05 → 4A 23:16
PROVIDERS: ADMIT Internal Medicine Geriatric Medicine; ATTEND Student in an Organized Health Care Education/Training Program
DX: I21.4 Non-ST elevation (NSTEMI) myocardial infarction (principal); E87.70 Fluid overload, unspecified; R07.89 Other chest pain; I12.0 Hypertensive chronic kidney disease with stage 5 chronic kidney disease or end stage renal disease; N18.6 End stage renal disease; D63.1 Anemia in chronic kidney disease; K21.9 Gastro-esophageal reflux disease without esophagitis; E11.22 Type 2 diabetes mellitus with diabetic chronic kidney disease; I25.10 Atherosclerotic heart disease of native coronary artery without angina pectoris; R77.8 Other specified abnormalities of plasma proteins; J81.1 Chronic pulmonary edema; E66.2 Morbid (severe) obesity with alveolar hypoventilation; Z68.36 Body mass index [BMI] 36.0-36.9, adult; Z99.2 Dependence on renal dialysis; Z79.899 Other long term (current) drug therapy; Z98.890 Other specified postprocedural states; Z79.4 Long term (current) use of insulin; Z79.82 Long term (current) use of aspirin
CPT/HCPCS: 36415; 71045; 74176; 80048; 80053; 80061; 82962; 83690; 84484; 84703; 85025; 85520; 85610; 85730; 93005; 93970; 96365; 96366; 96375; 96376; 99285; G0378; J1644; J2270; 85007; J3490; Q9967; J1815

== ENCOUNTER 2022-01-24 12:34 | Inpatient (IN) | payer MEDICARE ==
[2022-01-24 14:41] LABS: Hematocrit 21.4 % (30.3-42.9); Hemoglobin 7.4 gm/dl (10.1-14.3); Mean Corpuscular HGB Conc 35 % (30-34); Mean Corpuscular Volume 91 fl (79-97); Red Blood Count 2.37 M/mm3 (3.65-5.03); Red Cell Distribution Width 15.4 % (13.2-15.2)
--- NOTE | 2022-01-24 14:44 | XRay Report ---
CHEST 1 VIEW 01/24/2022 1:34 PM INDICATION / CLINICAL INFORMATION: Chest Pain. COMPARISON: 01/20/22 FINDINGS: SUPPORT DEVICES: None. HEART / MEDIASTINUM: Heart is enlarged but unchanged. LUNGS / PLEURA: Interval development of moderate interstitial pulmonary edema. No pneumothorax. ADDITIONAL FINDINGS: No significant additional findings. IMPRESSION: 1. Cardiomegaly with moderate pulmonary edema. Signer Name: Dee Rosario MD Signed: 01/24/2022 2:40 PM Workstation Name: [id number]
[2022-01-24 15:08] LABS: Alanine Aminotransferase 20 units/L (7-56); Albumin 4.3 g/dL (3.9-5); Blood Urea Nitrogen 57 mg/dL (7-17); Calcium 8.7 mg/dL (8.4-10.2); Hemolysis Index 1
[2022-01-24 15:10] LABS: BUN/Creatinine Ratio 7
--- NOTE | 2022-01-24 15:33 | Emergency Department Report ---
ED Chest Pain HPI - General Chief Complaint: Chest Pain Stated Complaint: CHEST PAIN Time Seen by Provider: 01/24/22 13:37 Source: EMS Mode of arrival: Stretcher Limitations: Physical Limitation - History of Present Illness Initial Comments: 46-year-old female with a history of end-stage renal disease currently on dialysis who presented this morning with chest pain that started about an hour before getting ready for dialysis. Patient describes as a pressure on the left side of the chest. No cough or shortness of breath reported. Pt reports that s he was given aspirin by EMS but refused nitro because it causes headache afterward. No palpitation noted. No fever or chills reported. Patient also denies any modifying or associated factors. Severity scale (0 -10): 7 - Related Data Home Medications Medication Instructions Recorded Confirmed Last Taken AtorvaSTATin [Lipitor] 40 mg PO QHS 01/21/22 01/21/22 Unknown Hydralazine HCl 50 mg PO TID 01/21/22 01/21/22 Unknown ISOSORBIDE MONOnitrate [Imdur ER] 30 mg PO DAILY 01/21/22 01/21/22 Unknown Metoprolol Xl [Metoprolol 75 mg PO QPM 01/21/22 01/21/22 Unknown SUCCINATE ER TAB] NIFEdipine [Nifedipine ER] 60 mg PO QDAY 01/21/22 01/21/22 Unknown Previous Rx's Medication Instructions Recorded Last Taken Type Aspirin EC [Ecotrin] 325 mg PO QDAY 30 Days #30 tablet 01/21/22 Unknown Rx Clopidogrel [Plavix] 75 mg PO QDAY 90 Days #90 tab 01/21/22 Unknown Rx Nitroglycerin [Nitrostat] 0.4 mg SL Q5M PRN 30 Days #30 01/21/22 Unknown Rx tablet Allergies Allergy/AdvReac Type Severity Reaction Status Date / Time No Known Allergies Allergy Verified 01/24/22 12:50 Heart Score - HEART Score History: Slightly suspicious EKG: Normal Age: 45-65 Risk factors: 1-2 risk factors Troponin: < normal limit HEART Score: 2 - EKG Read Time Time EKG Completed: 15:35 EKG Read Time: 15:45 - Critical Actions Critical Actions: 0-3 pts:0.9-1.7%risk of adverse cardiac event.Candidate for discharge ED Review of Systems ROS: Stated complaint: CHEST PAIN Other details as noted in HPI Comment: All other systems reviewed and negative Cardiovascular: chest pain. denies: edema ED Past Medical Hx - Past Medical History Previous Medical History?: Yes Hx Hypertension: Yes Hx Diabetes: Yes Hx Renal Disease: Yes (dialysis TTS) Hx HIV: No - Surgical History Past Surgical History?: Yes Additional Surgical History: dialysis cath right leg, left upper extremity fistula - Social History Smoking Status: Never Smoker - Medications Home Medications: Home Medications Medication Instructions Recorded Confirmed Last Taken Type Aspirin EC [Ecotrin] 325 mg PO QDAY 30 Days #30 tablet 01/21/22 Unknown Rx AtorvaSTATin [Lipitor] 40 mg PO QHS 01/21/22 01/21/22 Unknown History Clopidogrel [Plavix] 75 mg PO QDAY 90 Days #90 tab 01/21/22 Unknown Rx Hydralazine HCl 50 mg PO TID 01/21/22 01/21/22 Unknown History ISOSORBIDE MONOnitrate [Imdur ER] 30 mg PO DAILY 01/21/22 01/21/22 Unknown History Metoprolol Xl [Metoprolol 75 mg PO QPM 01/21/22 01/21/22 Unknown History SUCCINATE ER TAB] NIFEdipine [Nifedipine ER] 60 mg PO QDAY 01/21/22 01/21/22 Unknown History Nitroglycerin [Nitrostat] 0.4 mg SL Q5M PRN 30 Days #30 01/21/22 Unknown Rx tablet ED Physical Exam - General Limitations: Physical Limitation General appearance: alert, in no apparent distress - Head Head exam: Present: normal inspection - Eye Eye exam: Present: normal appearance Pupils: Present: normal accommodation - ENT ENT exam: Present: normal exam, normal orophraynx, mucous membranes dry - Neck Neck exam: Present: normal inspection, full ROM. Absent: tenderness - Respiratory Respiratory exam: Present: normal lung sounds bilaterally. Absent: respiratory distress, accessory muscle use - Cardiovascular Cardiovascular Exam: Present: regular rate, normal rhythm, normal heart sounds - GI/Abdominal GI/Abdominal exam: Present: soft, normal bowel sounds. Absent: distended, t enderness - Extremities Exam Extremities exam: Present: normal inspection, normal capillary refill. Absent: tenderness - Back Exam Back exam: Absent: tenderness - Neurological Exam Neurological exam: Present: alert, oriented X3 - Psychiatric Psychiatric exam: Present: normal affect, normal mood - Skin Skin exam: Present: warm, normal color ED Course Vital Signs 01/24/22 01/24/22 01/24/22 12:46 13:02 13:05 Pulse Rate 69 117 H 67 Respiratory 16 12 Rate Blood Pressure 162/68 Blood Pressure 156/68 [Left] O2 Sat by Pulse 97 96 Oximetry 01/24/22 01/24/22 01/24/22 13:11 13:15 13:21 Pulse Rate 66 66 67 Respiratory 17 12 13 Rate Blood Pressure 162/68 162/68 162/68 Blood Pressure [Left] O2 Sat by Pulse 96 95 95 Oximetry 01/24/22 01/24/22 01/24/22 13:25 13:31 13:35 Pulse Rate 65 66 66 Respiratory 12 10 L 19 Rate Blood Pressure 162/68 162/68 162/68 Blood Pressure [Left] O2 Sat by Pulse 96 96 96 Oximetry 01/24/22 01/24/22 01/24/22 13:41 13:45 13:51 Pulse Rate 66 67 65 Respiratory 16 15 10 L Rate Blood Pressure 162/68 162/68 162/68 Blood Pressure [Left] O2 Sat by Pulse 96 96 98 Oximetry 01/24/22 01/24/22 01/24/22 13:55 14:01 14:05 Pulse Rate 66 65 66 Respiratory 15 11 L 13 Rate Blood Pressure 162/68 162/68 162/68 Blood Pressure [Left] O2 Sat by Pulse 99 98 98 Oximetry 01/24/22 01/24/22 01/24/22 14:11 14:15 14:21 Pulse Rate 65 64 Respiratory 16 17 24 Rate Blood Pressure 162/68 162/68 162/68 Blood Pressure [Left] O2 Sat by Pulse 99 100 100 Oximetry 01/24/22 01/24/22 01/24/22 14:25 14:31 14:35 Pulse Rate 65 64 64 Respiratory 22 22 21 Rate Blood Pressure 162/68 162/68 162/68 Blood Pressure [Left] O2 Sat by Pulse 99 96 96 Oximetry 01/24/22 01/24/22 01/24/22 14:41 14:45 14:51 Pulse Rate 63 62 67 Respiratory 20 20 15 Rate Blood Pressure 162/68 162/68 162/68 Blood Pressure [Left] O2 Sat by Pulse 96 96 100 Oximetry 01/24/22 01/24/22 01/24/22 14:55 15:13 15:20 Pulse Rate 63 63 62 Respiratory 20 18 20 Rate Blood Pressure 162/68 Blood Pressure [Left] O2 Sat by Pulse 98 96 96 Oximetry 01/24/22 01/24/22 01/24/22 15:40 16:00 16:20 Pulse Rate 62 63 60 Respiratory 16 19 22 Rate Blood Pressure 159/77 145/67 Blood Pressure [Left] O2 Sat by Pulse 98 97 95 Oximetry 01/24/22 01/24/22 01/24/22 16:40 17:00 17:20 Pulse Rate 64 64 65 Respiratory 15 14 12 Rate Blood Pressure 145/67 152/75 150/93 Blood Pressure [Left] O2 Sat by Pulse 99 99 97 Oximetry 01/24/22 01/24/22 01/24/22 17:40 18:00 18:20 Pulse Rate 66 63 62 Respiratory 20 12 13 Rate Blood Pressure 150/93 150/93 148/70 Blood Pressure [Left] O2 Sat by Pulse 95 96 92 Oximetry - Consultations Consultation #1: 01/24/22 17:13 Dr Tijerina consulted who accept pt and planned to have patient dialysis as soon as possible but also wanted patient admitted to hospitalist for observation-- Consultation #2: 01/24/22 17:15 Dr Gates consulted who accept pt for further evaluation and treatment -- BULL score - Bull Score Age > 65: (0) No Aspirin use within the Past 7 Days: (1) Yes 3 or more CAD Risk Factors: (0) No 2 or more Angina events in past 24 hrs: (0) No Known CAD with more than 50% Stenosis: (0) No Elevated Cardiac Markers: (0) No ST Deviation Greater than 0.5mm: (0) No BULL Score: 1 ED Medical Decision Making - Lab Data Result diagrams: 01/24/22 14:15 01/24/22 14:15 - EKG Data -: EKG Interpreted by Wy EKG shows normal: sinus rhythm Rate: normal - EKG Data 01/24/22 16:05 Noted with normal sinus rhythm at a rate of 62 bpm with LVH and without any ST elevation or depression in this abnormal ECG. - Radiology Data FINDINGS: SUPPORT DEVICES: None. HEART / MEDIASTINUM: Heart is enlarged but unchanged. LUNGS / PLEURA: Interval development of moderate interstitial pulmonary edema. No pneumothorax. ADDITIONAL FINDINGS: No significant additional findings. IMPRESSION: 1. Cardiomegaly with moderate pulmonary edema. - Medical Decision Making Here with chest pain/pressure--differential could be but not limited to myocardial infarction, pulmonary embolism, costochondritis, anxiety, gastritis, GERD, pancreatitis, and or pyelonephritis--in order to rule out the above-- so will go ahead and order routine cardiopulmonary work-up that include troponin, EKG, chest x-ray, BNP, CKMB, and CBC, CMP and urinalysis for any correctable infectious process or electrolyte abnormality as a cause. Initial EKG-- Initial troponin was noted to be elevated but this could be due to end-stage renal disease and not particularly as a result of the mild cardiac injury. In the meantime we will continue to follow up on this patient. FINDINGS: SUPPORT DEVICES: None. HEART / MEDIASTINUM: Heart is enlarged but unchanged. LUNGS / PLEURA: Interval development of moderate interstitial pulmonary edema. No pneumothorax. ADDITIONAL FINDINGS: No significant additional findings. IMPRESSION: 1. Cardiomegaly with moderate pulmonary edema. Lab reviewed and noted with low H&H at 7.4/21 point fall which is likely due to end-stage renal disease. Also noted weight low WBC and platelets count at 2.0 and 98,000 respectively. Patient BNP noted to be 35,000 which could be as a result of end-stage renal disease but with chest x-ray showing cardiomegaly this could be heart failure as well. Patient is going to need to be dialyzed at this point since given Lasix for diuresing will bd counterproductive at this point since patient is not making urine with chronic renal failure. The elevated BNP and cardiomegaly on chest x-ray could also be CHF considering that there is no recent echocardiogram on this system. This patient probably will benefit from echocardiogram to further evaluate for possible heart failure as a cause. At this point Dr Tijerina the project manager consulted who told me he knows this patient well and will have patient dialyzed tomorrow but wanted her admitted to the hospitalist for observation. Critical care attestation.: If time is entered above; I have spent that time in minutes in the direct care of this critically ill patient, excluding procedure time. ED Disposition Clinical Impression: End stage renal disease, End stage renal disease on dialysis Chest pain Qualifiers: Chest pain type: unspecified Qualified Code(s): R07.9 - Chest pain, unspecified Disposition: ADMITTED INPATIENT Is pt being admited?: Yes Does the pt Need Aspirin: No Condition: Stable Time of Disposition: 17:17
[2022-01-24 16:04] LABS: INR 0.92 (0.87-1.13)
[2022-01-24 16:14] LABS: Platelet Count 98 K/mm3 (140-440)
[2022-01-24 17:13] LABS: Total Cells Counted 100
[2022-01-24 17:17] LABS: Hypochromasia Few; Tear Drop Cells Few
[2022-01-24 17:18] LABS: Platelet Estimate Consistent w Auto; Target Cells Few
[2022-01-24] MEDS ORDERED: ALBUTEROL 2.5 MG/3 ML NEBU IH PRN (17:19)
[2022-01-24] MEDS ORDERED: ACETAMINOPHEN 325 MG TAB PO PRN (17:19)
[2022-01-24] MEDS ORDERED: MORPHINE 4 MG/1 ML INJ IV PRN (17:19)
--- NOTE | 2022-01-24 17:19 | History and Physical Report ---
History of Present Illness Chief complaint: My chest feels tight History of present illness: 46 YO Female with ESRD on HD(T,R,Sa), Systolic CHF(EF35%), Obesity, HTN, DM, HLD, Metabolic Syndrome, Noncompliance, CAD on DAPT presents to ED for evaluation. Patient reports "my chest feels tight". Patient states that she experienced a sudden onset of chest tightness while preparing to go to her routine dialysis center for dialysis today. Patient also acknowledges decreased exercise tolerance, noncompliance with low-sodium diet, orthopnea, paroxysmal nocturnal dyspnea, as well as 8 pound 8 weight gain over the past 1 week. EMS was notified and upon arrival the patient was found to be in distress and subsequent transported to [facility] for further care and evaluation of the aforementioned symptoms. The patient was seen and evaluated in the emergency department. All lab and imaging studies reviewed. Patient found to have a systolic blood pressure in the 160s, end-stage renal disease complicated by fluid overload, pulmonary edema, as well as clinical symptoms consistent with CHF decompensation. Patient admitted to medical floor and initiated on CHF protocol. Nephrology team consulted in ED for urgent dialysis. Patient denies fever, chills, chest pain, palpitation, productive cough, skin rash, recent cont act, or known exposure to COVID-19. Prior admission on 01/20/2022 reviewed. All medication listed at time of admission as reconciled. Advanced care planning conducted in ED. Past History Past Medical History: ESRD, hypertension, other (See HPI) Past Surgical History: Other (Dialysis access) Social history: single. denies: smoking, alcohol abuse, prescription drug abuse Family history: diabetes, hypertension Medications and Allergies Allergies Allergy/AdvReac Type Severity Reaction Status Date / Time No Known Allergies Allergy Verified 01/24/22 12:50 Home Medications Medication Instructions Recorded Confirmed Last Taken Type Aspirin EC [Ecotrin] 325 mg PO QDAY 30 Days #30 tablet 01/21/22 Unknown Rx AtorvaSTATin [Lipitor] 40 mg PO QHS 01/21/22 01/21/22 Unknown History Clopidogrel [Plavix] 75 mg PO QDAY 90 Days #90 tab 01/21/22 Unknown Rx Hydralazine HCl 50 mg PO TID 01/21/22 01/21/22 Unknown History ISOSORBIDE MONOnitrate [Imdur ER] 30 mg PO DAILY 01/21/22 01/21/22 Unknown History Metoprolol Xl [Metoprolol 75 mg PO QPM 01/21/22 01/21/22 Unknown History SUCCINATE ER TAB] NIFEdipine [Nifedipine ER] 60 mg PO QDAY 01/21/22 01/21/22 Unknown History Nitroglycerin [Nitrostat] 0.4 mg SL Q5M PRN 30 Days #30 01/21/22 Unknown Rx tablet Review of Systems Constitutional: weight gain, weakness, no weight loss, no fever, no chills Ears, nose, mouth and throat: no ear pain, no ear discharge, no nose pain Cardiovascular: orthopnea, dyspnea on exertion, paroxysmal nocturnal dyspnea, high blood pressure, decreased exercise tolerance, no chest pain Respiratory: no cough, no cough with sputum, no excessive sputum, no hemoptysis Gastrointestinal: no abdominal pain, no nausea, no diarrhea, no constipation, no change in bowel habits, no hematemesis Genitourinary Female: no pelvic pain, no dysuria, no urinary frequency, no urgency, no post void dribbling, no incomplete emptying Rectal: no pain, no incontinence, no bleeding Musculoskeletal: no neck stiffness, no shooting arm pain, no arm numbness/tingling, no shooting leg pain, no leg numbness/tingling, no redness of joints Integumentary: no rash, no pruritis, no redness, no sores, no jaundice, no boils Neurological: no head injury, no transient paralysis, no paralysis, no parathesias, no tingling, no syncope, no tremors Psychiatric: no anxiety, no memory loss, no sleep disturbances, no insomnia, no hypersomnia, no change in libido Endocrine: no cold intolerance, no excessive thirst, no polydipsia, no polyuria, no excessive sweating Hematologic/Lymphatic: no easy bruising, no easy bleeding Allergic/Immunologic: no urticaria, no allergic rhinitis Exam - Constitutional Vitals: Temp Pulse Resp BP Pulse Ox 63 18 162/68 96 01/24/22 15:13 01/24/22 15:13 01/24/22 14:55 01/24/22 15:13 General appearance: Present: mild distress, obese - EENT Eyes: Present: PERRL ENT: hearing intact, clear oral mucosa - Neck Neck: Present: supple, normal ROM, masses or JVD - Respiratory Respiratory effort: normal Respiratory: bilateral: CTA, rales - Cardiovascular Heart Sounds: Present: S1 & S2. Absent: rub, click - Extremities Extremities: pulses symmetrical Extremity abnormal: edema Peripheral Pulses: within normal limits - Abdominal General gastrointestinal: Present: soft, non-tender, non-distended, normal bowel sounds Female genitourinary: Present: normal - Integumentary Integumentary: Present: clear, warm, dry - Musculoskeletal Musculoskeletal: gait normal, strength equal bilaterally - Psychiatric Psychiatric: appropriate mood/affect, intact judgment & insight - Neurologic Neurologic: CNII-XII intact, moves all extremities HEART Score - HEART Score EKG: Normal Age: 45-65 Risk factors: 1-2 risk factors Troponin: Troponin T 0.123 ng/mL (0.00-0.029) H* 01/24/22 14:15 Troponin: < normal limit - Critical Actions Critical Actions: 0-3 pts:0.9-1.7%risk of adverse cardiac event.Candidate for discharge Results - Labs CBC & Chem 7: 01/24/22 14:15 01/24/22 14:15 Labs: Abnormal lab results 01/24/22 01/24/22 Range/Units 14:15 14:15 WBC 2.0 L (4.5-11.0) K/mm3 RBC 2.37 L (3.65-5.03) M/mm3 Hgb 7.4 L (10.1-14.3) gm/dl Hct 21.4 L (30.3-42.9) % MCHC 35 H (30-34) % RDW 15.4 H (13.2-15.2) % Plt Count 98 L (140-440) K/mm3 Seg Neuts % (Manual) 74.0 H (40.0-70.0) % Lymphocytes % (Manual) 12.0 L (13.4-35.0) % Seg Neutrophils # Man 1.5 L (1.8-7.7) K/mm3 Lymphocytes # (Manual) 0.2 L (1.2-5.4) K/mm3 BUN 57 H (7-17) mg/dL Creatinine 8.5 H (0.6-1.2) mg/dL Glucose 195 H (65-100) mg/dL Troponin T 0.123 H* (0.00-0.029) ng/mL NT-Pro-B Natriuret Pep > 86875 H (0-450) pg/mL Assessment and Plan - Patient Problems (1) CHF (congestive heart failure) Current Visit: Yes Status: Acute Qualifiers: Heart failure type: systolic Heart failure chronicity: acute on chronic Qualified Code(s): I50.23 - Acute on chronic systolic (congestive) heart failure Plan to address problem: Strict I's/O, monitor urine push every shift, daily weight, afterload reduction, blood pressure control, afterload reduction, continue medical management. Echocardiogram reviewed. (2) End stage renal disease Current Visit: Yes Status: Acute Plan to address problem: Nephrology team consulted in ED. Urgent dialysis. Monitor fluid balance, avoid nephrotoxic agents. (3) Coronary artery disease Current Visit: Yes Status: Acute Plan to address problem: Continue dual antiplatelet therapy. Risk factor reduction. (4) Accelerated hypertension Current Visit: No Status: Acute Plan to address problem: Monitor blood pressure every shift, continue medical management. Hydralazine IV every 6 hours as needed for systolic blood pressure greater than 155 mmHg. (5) Diabetes Current Visit: No Status: Acute Plan to address problem: Consistent carbohydrate diet, Accu-Chek, insulin protocol, hypoglycemia protocol (6) Fluid overload Current Visit: No Status: Acute Qualifiers: Hypervolemia type: other Qualified Code(s): E87.79 - Other fluid overload Plan to address problem: Dialysis as per renal team, monitor fluid balance, (7) Metabolic syndrome Current Visit: No Status: Acute Plan to address problem: Weight reduction, increase glucose control, risk factor reduction. (8) Obesity hypoventilation syndrome Current Visit: No Status: Acute Plan to address problem: Balanced diet, increase physical activity discharge, outpatient pulmonary follow-up for sleep study. (9) Pulmonary edema Current Visit: No Status: Acute Qualifiers: Chronicity: acute Qualified Code(s): J81.0 - Acute pulmonary edema Plan to address problem: Diuresis, urgent dialysis, supportive care. Supplemental oxygen as clinically indicated. (10) DVT prophylaxis Current Visit: No Status: Acute Plan to address problem: SCD to bilateral lower extremities while in bed (11) Advance care planning Current Visit: No Status: Acute Plan to address problem: Disease education data, care plan discussed, diagnoses discussed, prognosis discussed, patient is full code. Patient knowledges understanding and agreement with care plan, +30 minutes. (12) Preventative health care Current Visit: No Status: Acute Plan to address problem: Patient counseled regarding outpatient follow-up with primary care physician for all age and risk factor appropriate screening test. Patient counseled regarding medication compliance, compliance with low-sodium diet. +30 minutes.
[2022-01-24] MEDS ORDERED: NITROGLYCERIN 0.4 MG TAB SUBL SL PRN (17:21)
[2022-01-24] MEDS ORDERED: NON-FORMULARY EACH (Hydralazine Hcl [Hydralazine Hcl] 50 MG Tablet) PO SCH (20:00)
[2022-01-24] MEDS: METOPROLOL SUCCINATE XL 25 MG TAB PO SCH (21:37)
[2022-01-24] MEDS: hydrALAZINE 25 MG TAB PO SCH (21:46)
[2022-01-24] MEDS: INSULIN LISPRO 100 UNIT/ML SUB-Q SCH (21:51)
[2022-01-25 04:59] LABS: Calcium 8.3 mg/dL (8.4-10.2)
[2022-01-25] MEDS: hydrALAZINE 25 MG TAB PO SCH ×3 (05:10→22:08)
[2022-01-25] MEDS: INSULIN LISPRO 100 UNIT/ML SUB-Q SCH ×4 (07:30→22:09)
[2022-01-25] MEDS: ASPIRIN EC 325 MG TAB PO SCH (09:44)
[2022-01-25] MEDS: CLOPIDOGREL 75 MG TAB PO SCH (09:44)
[2022-01-25] MEDS: NIFEdipine XL 60 MG TAB PO SCH (09:44)
[2022-01-25] MEDS: oxyCODONE /ACETAMINOPHEN 5-325MG TAB PO PRN ×2 (09:45→22:08)
--- NOTE | 2022-01-25 10:44 | Progress Note ---
Assessment and Plan Assessment and plan: 46 YO Female with ESRD on HD(T,R,Sa), Systolic CHF(EF35%), Obesity, HTN, DM, HLD, Metabolic Syndrome, Noncompliance, CAD on DAPT presents to ED for evaluation of a sudden onset of chest tightness while preparing to go to her routine dialysis center for dialysis on 01/24/2022. Patient also acknowledged de creased exercise tolerance, noncompliance with low-sodium diet, orthopnea, paroxysmal nocturnal dyspnea, as well as 8 pound 8 weight gain over the past 1 week. Patient found to have a systolic blood pressure in the 160s, end-stage renal disease complicated by fluid overload, pulmonary edema, as well as clinical symptoms consistent with CHF decompensation. Patient was admitted with diagnosis below: Acute on chronic diastolic heart failure. Stress test May 2017 was negative for ischemia and an EF of 55%. Chest pain/elevated troponin ESRD Hypertensive urgency Diabetes mellitus type 2 Anemia of CKD Pulmonary edema/fluid overload Obesity hypoventilation syndrome 01/25/2022. Patient complaining of right upper and lower abdominal pain currently. We will check CT scan of the abdomen and pelvis for further evaluation. We will consult nephrology for further evaluation. Patient to resume hemodialysis per nephrology recommendations. Cardiology consultation. History Interval history: No new issues overnight. Hospitalist Physical - Constitutional Vitals: Temp Pulse Resp BP Pulse Ox 97.5 F L 69 18 157/67 95 01/25/22 05:05 01/25/22 09:44 01/25/22 05:05 01/25/22 09:44 01/25/22 05:05 General appearance: Present: no acute distress, obese - EENT Eyes: Present: PERRL, EOM intact ENT: hearing intact, clear oral mucosa, dentition normal - Neck Neck: Present: supple, normal ROM - Respiratory Respiratory effort: normal Respiratory: bilateral: CTA - Cardiovascular Rhythm: regular Heart Sounds: Present: S1 & S2. Absent: gallop, rub - Extremities Extremities: no ischemia, No edema, Full ROM - Abdominal General gastrointestinal: soft, non-tender, non-distended, normal bowel sounds - Integumentary Integumentary: Present: clear, warm, dry - Neurologic Neurologic: CNII-XII intact, moves all extremities HEART Score - HEART Score EKG: Normal Age: 45-65 Risk factors: 1-2 risk factors Troponin: Troponin T 0.123 ng/mL (0.00-0.029) H* 01/24/22 14:15 Troponin: < normal limit - Critical Actions Critical Actions: 0-3 pts:0.9-1.7%risk of adverse cardiac event.Candidate for discharge Results - Labs CBC & Chem 7: 01/24/22 14:15 01/25/22 04:09 Labs: Laboratory Last Values WBC 2.0 K/mm3 (4.5-11.0) L 01/24/22 14:15 RBC 2.37 M/mm3 (3.65-5.03) L 01/24/22 14:15 Hgb 7.4 gm/dl (10.1-14.3) L 01/24/22 14:15 Hct 21.4 % (30.3-42.9) L 01/24/22 14:15 MCV 91 fl (79-97) 01/24/22 14:15 MCH 31 pg (28-32) 01/24/22 14:15 MCHC 35 % (30-34) H 01/24/22 14:15 RDW 15.4 % (13.2-15.2) H 01/24/22 14:15 Plt Count 98 K/mm3 (140-440) L 01/24/22 14:15 Add Manual Diff Complete 01/24/22 14:15 Total Counted 100 01/24/22 14:15 Seg Neuts % (Manual) 74.0 % (40.0-70.0) H 01/24/22 14:15 Band Neutrophils % 0 % 01/24/22 14:15 Lymphocytes % (Manual) 12.0 % (13.4-35.0) L 01/24/22 14:15 Reactive Lymphs % (Man) 0 % 01/24/22 14:15 Monocytes % (Manual) 4.0 % (0.0-7.3) 01/24/22 14:15 Eosinophils % (Manual) 4.0 % (0.0-4.3) 01/24/22 14:15 Metamyelocytes % 0 % 01/24/22 14:15 Myelocytes % 0 % 01/24/22 14:15 Promyelocytes % 0 % 01/24/22 14:15 Blast Cells % 0 % 01/24/22 14:15 Nucleated RBC % Not Reportable 01/24/22 14:15 Seg Neutrophils # Man 1.5 K/mm3 (1.8-7.7) L 01/24/22 14:15 Band Neutrophils # 0.0 K/mm3 01/24/22 14:15 Lymphocytes # (Manual) 0.2 K/mm3 (1.2-5.4) L 01/24/22 14:15 Abs React Lymphs (Man) 0.0 K/mm3 01/24/22 14:15 Monocytes # (Manual) 0.1 K/mm3 (0.0-0.8) 01/24/22 14:15 Eosinophils # (Manual) 0.1 K/mm3 (0.0-0.4) 01/24/22 14:15 Basophils # (Manual) 0.1 K/mm3 (0.0-0.1) 01/24/22 14:15 Metamyelocytes # 0.0 K/mm3 01/24/22 14:15 Myelocytes # 0.0 K/mm3 01/24/22 14:15 Promyelocytes # 0.0 K/mm3 01/24/22 14:15 Blast Cells # 0.0 K/mm3 01/24/22 14:15 WBC Morphology Not Reportable 01/24/22 14:15 WBC Morphology TNR 01/24/22 14:15 Hypersegmented Neuts Not Reportable 01/24/22 14:15 Hyposegmented Neuts Not Reportable 01/24/22 14:15 Hypogranular Neuts Not Reportable 01/24/22 14:15 Smudge Cells Not Reportable 01/24/22 14:15 Toxic Granulation Not Reportable 01/24/22 14:15 Toxic Vacuolation Not Reportable 01/24/22 14:15 Dohle Bodies Not Reportable 01/24/22 14:15 Pelger-Huet Anomaly Not Reportable 01/24/22 14:15 Deep Rods Not Reportable 01/24/22 14:15 Platelet Estimate Consistent w auto 01/24/22 14:15 Clumped Platelets Not Reportable 01/24/22 14:15 Plt Clumps, EDTA Not Reportable 01/24/22 14:15 Large Platelets Not Reportable 01/24/22 14:15 Giant Platelets Not Reportable 01/24/22 14:15 Platelet Satelliting Not Reportable 01/24/22 14:15 Plt Morphology Comment Not Reportable 01/24/22 14:15 RBC Morphology Not Reportable 01/24/22 14:15 Dimorphic RBCs Not Reportable 01/24/22 14:15 Polychromasia Not Reportable 01/24/22 14:15 Hypochromasia Few 01/24/22 14:15 Poikilocytosis Not Reportable 01/24/22 14:15 Anisocytosis Not Reportable 01/24/22 14:15 Microcytosis Not Reportable 01/24/22 14:15 Macrocytosis Not Reportable 01/24/22 14:15 Spherocytes Not Reportable 01/24/22 14:15 Pappenheimer Bodies Not Reportable 01/24/22 14:15 Sickle Cells Not Reportable 01/24/22 14:15 Target Cells Few 01/24/22 14:15 Tear Drop Cells Few 01/24/22 14:15 Ovalocytes Not Reportable 01/24/22 14:15 Helmet Cells Not Reportable 01/24/22 14:15 [place] Bodies Not Reportable 01/24/22 14:15 [place] Rings Not Reportable 01/24/22 14:15 Rogers Cells Not Reportable 01/24/22 14:15 Bite Cells Not Reportable 01/24/22 14:15 Crenated Cell Not Reportable 01/24/22 14:15 Elliptocytes Not Reportable 01/24/22 14:15 Acanthocytes (Spur) Not Reportable 01/24/22 14:15 Rouleaux Not Reportable 01/24/22 14:15 Hemoglobin C Crystals Not Reportable 01/24/22 14:15 Schistocytes Not Reportable 01/24/22 14:15 Malaria parasites Not Reportable 01/24/22 14:15 Jeremías Bodies Not Reportable 01/24/22 14:15 Hem Pathologist Commnt No 01/24/22 14:15 PT 13.4 Sec. (12.2-14.9) 01/24/22 14:15 INR 0.92 (0.87-1.13) 01/24/22 14:15 Sodium 143 mmol/L (137-145) 01/25/22 04:09 Potassium 4.5 mmol/L (3.6-5.0) 01/25/22 04:09 Chloride 100.5 mmol/L (98-107) 01/25/22 04:09 Carbon Dioxide 28 mmol/L (22-30) 01/25/22 04:09 Anion Gap 19 mmol/L 01/25/22 04:09 BUN 66 mg/dL (7-17) H 01/25/22 04:09 Creatinine 8.9 mg/dL (0.6-1.2) H 01/25/22 04:09 Estimated GFR 6 ml/min 01/25/22 04:09 BUN/Creatinine Ratio 7 % 01/25/22 04:09 Glucose 198 mg/dL (65-100) H 01/25/22 04:09 POC Glucose 234 mg/dL (70-105) H 01/24/22 21:41 Calcium 8.3 mg/dL (8.4-10.2) L 01/25/22 04:09 Total Bilirubin 0.60 mg/dL (0.1-1.2) 01/24/22 14:15 AST 18 units/L (5-40) 01/24/22 14:15 ALT 20 units/L (7-56) 01/24/22 14:15 Alkaline Phosphatase 83 units/L (35-129) 01/24/22 14:15 Troponin T 0.123 ng/mL (0.00-0.029) H* 01/24/22 14:15 C-Reactive Protein 0.30 mg/dL (0.00-1.30) 01/24/22 14:15 NT-Pro-B Natriuret Pep > 91249 pg/mL (0-450) H 01/24/22 14:15 Total Protein 6.8 g/dL (6.3-8.2) 01/24/22 14:15 Albumin 4.3 g/dL (3.9-5) 01/24/22 14:15 Albumin/Globulin Ratio 1.7 % 01/24/22 14:15 Lipase 25 units/L (13-60) 01/24/22 14:15 Hawk/IV: Voiding Method External Female Catheter Active Medications - Current Medications Current Medications: Generic Name Dose Route Start Last Admin Trade Name Freq PRN Reason Stop Dose Admin Acetaminophen 650 mg 01/24/22 17:19 Acetaminophen 325 Mg Tab PO Q4H PRN Pain MILD(1-3)/Fever >100.5/CARDENAS Albuterol 2.5 mg 01/24/22 17:19 Albuterol 2.5 Mg/3 Ml Nebu IH Q4HRT PRN Shortness Of Breath Aspirin 325 mg 01/25/22 10:00 01/25/22 09:44 Aspirin Ec 325 Mg Tab PO 325 mg QDAY ANTHONY Administration Atorvastatin Calcium 40 mg 01/24/22 22:00 01/24/22 21:40 Atorvastatin 40 Mg Tab PO 40 mg QHS ANTHONY Administration Clopidogrel Bisulfate 75 mg 01/25/22 10:00 01/25/22 09:44 Clopidogrel 75 Mg Tab PO 75 mg QDAY [facility] Administration Hydralazine HCl 50 mg 01/24/22 22:00 01/25/22 05:10 Hydralazine 25 Mg Tab PO 50 mg Q8HR ANTHONY Administration Insulin Human Lispro 0 unit 01/24/22 22:00 01/25/22 07:30 Insulin Lispro 100 Unit/Ml SUB-Q 2 unit ACHS [facility] Administration Protocol Isosorbide Mononitrate 30 mg 01/25/22 10:00 01/25/22 09:44 Isosorbide Mononitrate Er 30 Mg Tab PO 30 mg DAILY [facility] Administration Metoprolol Succinate 75 mg 01/24/22 18:00 01/24/22 21:37 Metoprolol Succinate Xl 25 Mg Tab PO Not Given QPM [facility] Morphine Sulfate 2 mg 01/24/22 17:19 01/25/22 03:12 Morphine 4 Mg/1 Ml Inj IV 2 mg Q14H PRN Administration Pain , Severe (7-10) Nifedipine 60 mg 01/25/22 10:00 01/25/22 09:44 Nifedipine Xl 60 Mg Tab PO 60 mg QDAY [facility] Administration Nitroglycerin 0.4 mg 01/24/22 17:21 Nitroglycerin 0.4 Mg Tab Subl SL Q5M PRN Chest Pain Ondansetron HCl 4 mg 01/24/22 17:19 Ondansetron 4 Mg/2 Ml Inj IV Q8H PRN Nausea And Vomiting Oxycodone/Acetaminophen 1 tab 01/24/22 17:19 01/25/22 09:45 Oxycodone /Acetaminophen 5-325mg Tab PO 1 tab Q6H PRN Administration Pain, Moderate (4-6) Sodium Chloride 10 ml 01/24/22 22:00 01/25/22 09:45 Sodium Chloride 0.9% 10 Ml Flush Syringe IV 10 ml BID ANTHONY Administration Sodium Chloride 10 ml 01/24/22 17:19 Sodium Chloride 0.9% 10 Ml Flush Syringe IV PRN PRN LINE FLUSH
--- NOTE | 2022-01-25 11:59 | Consultation ---
History of Present Illness - History of Present Illness Thank you for the consultation ! Patient was evaluated today, My assessment and plan are as follows #End-stage kidney disease: Patient will continue to receive hemodialysis t reatment 3 times a week Admitted here with chest pain missed dialysis treatment, she is currently being followed in our clinic Dialysis nurse to monitor blood pressure and heart rate closely while ul trafiltration is done to make sure patient stays stable, Outpatient dialysis facility is at [facility] #Access: Needs to be monitored during dialysis She currently does have a functioning Access: IV fistula #Hypertension and volume: Appears to be stable #Anemia in end-stage kidney disease: Monitor hemoglobin and hematocrit, erythropoietin as needed Bone mineral disorder and secondary hyperparathyroidism; Monitor phosphorus binders as necessary goal phosphorus less than 5-1/2 #Diet and nutrition: Protein supplementation as well as multivitamins #Medication changes: None today If there is any further question in regards to this patient renal care please contact me in [phone] Author: Prabhjot Palacios M.D. [facility], [address] [place] [address] Tel; [phone] Lob Source of information: From patient as well as her clinic records and hospital records were also reviewed History of present illness Patient is a very pleasant 46-year-old female who was recently admitted here for chest pain work-up and return back to ER with similar complaints, patient does dialyze at [facility] facility, she has been admitted here but has not received her dialysis, consultation was placed for management of end-stage kid ariane disease, She does suffer from some reflux symptoms, Past medical history: End-stage kidney disease: Anemia in end-stage kidney disease: Bone mineral disorder: Secondary hyperparathyroidism: Systolic heart failure: Ejection fraction 35%, poor compliance, obesity hypoventilation syndrome Current allergies: Reviewed from the current chart Social history: Reviewed from the current chart Family history: Reviewed from the current chart Review of system: Positive for admitted for chest pain All other review of systems negative Physical examination Vitals: Reviewed General: No acute distress HEENT: Oral mucosa moist no pallor or icterus Neck: Supple without any JVD thyromegaly or nodular mass Chest: Clear to auscultation Heart: Regular rate and rhythm S1-S2 heard no S3-S4 Abdomen: Soft nontender, bowel sounds present no renal bruit no suprapubic masses no CVA tenderness noted Extremity: Minimal edema dry skin no peripheral cyanosis Does have a good functioning axis with some faint sharp bruit Endocrine: Thyroid not enlarged Psychiatric: No agitation and aggression noted Musculoskeletal: No joint effusion noted Labs and x-rays: Reviewed from this admission Past History Past Medical History: ESRD, hypertension, other (See HPI) Past Surgical History: Other (Dialysis access) Social history: single. denies: smoking, alcohol abuse, prescription drug abuse Family history: diabetes, hypertension Medications and Allergies Allergies Allergy/AdvReac Type Severity Reaction Status Date / Time No Known Allergies Allergy Verified 01/24/22 12:50 Home Medications Medication Instructions Recorded Confirmed Last Taken Type Aspirin EC [Ecotrin] 325 mg PO QDAY 30 Days #30 tablet 01/21/22 Unknown Rx AtorvaSTATin [Lipitor] 40 mg PO QHS 01/21/22 01/21/22 Unknown History Clopidogrel [Plavix] 75 mg PO QDAY 90 Days #90 tab 01/21/22 Unknown Rx Hydralazine HCl 50 mg PO TID 01/21/22 01/21/22 Unknown History ISOSORBIDE MONOnitrate [Imdur ER] 30 mg PO DAILY 01/21/22 01/21/22 Unknown History Metoprolol Xl [Metoprolol 75 mg PO QPM 01/21/22 01/21/22 Unknown History SUCCINATE ER TAB] NIFEdipine [Nifedipine ER] 60 mg PO QDAY 01/21/22 01/21/22 Unknown History Nitroglycerin [Nitrostat] 0.4 mg SL Q5M PRN 30 Days #30 01/21/22 Unknown Rx tablet Active Meds: Active Medications Acetaminophen (Acetaminophen 325 Mg Tab) 650 mg PO Q4H PRN PRN Reason: Pain MILD(1-3)/Fever >100.5/[place] Albuterol (Albuterol 2.5 Mg/3 Ml Nebu) 2.5 mg IH Q4HRT PRN PRN Reason: Shortness Of Breath Aspirin (Aspirin Ec 325 Mg Tab) 325 mg PO QDAY [facility] Last Admin: 01/25/22 09:44 Dose: 325 mg Atorvastatin Calcium (Atorvastatin 40 Mg Tab) 40 mg PO QHS [facility] Last Admin: 01/24/22 21:40 Dose: 40 mg Clopidogrel Bisulfate (Clopidogrel 75 Mg Tab) 75 mg PO QDAY [facility] Last Admin: 01/25/22 09:44 Dose: 75 mg Hydralazine HCl (Hydralazine 25 Mg Tab) 50 mg PO Q8HR [facility] Last Admin: 01/25/22 05:10 Dose: 50 mg Insulin Human Lispro (Insulin Lispro 100 Unit/Ml) 0 unit SUB-Q ACHS [facility]; Protocol Last Admin: 01/25/22 07:30 Dose: 2 unit Isosorbide Mononitrate (Isosorbide Mononitrate Er 30 Mg Tab) 30 mg PO DAILY [facility] Last Admin: 01/25/22 09:44 Dose: 30 mg Metoprolol Succinate (Metoprolol Succinate Xl 25 Mg Tab) 75 mg PO QPM [facility] Last Admin: 01/24/22 21:37 Dose: Not Given Morphine Sulfate (Morphine 4 Mg/1 Ml Inj) 2 mg IV Q14H PRN PRN Reason: Pain , Severe (7-10) Last Admin: 01/25/22 03:12 Dose: 2 mg Nifedipine (Nifedipine Xl 60 Mg Tab) 60 mg PO QDAY [facility] Last Admin: 01/25/22 09:44 Dose: 60 mg Nitroglycerin (Nitroglycerin 0.4 Mg Tab Subl) 0.4 mg SL Q5M PRN PRN Reason: Chest Pain Ondansetron HCl (Ondansetron 4 Mg/2 Ml Inj) 4 mg IV Q8H PRN PRN Reason: Nausea And Vomiting Oxycodone/Acetaminophen (Oxycodone /Acetaminophen 5-325mg Tab) 1 tab PO Q6H PRN PRN Reason: Pain, Moderate (4-6) Last Admin: 01/25/22 09:45 Dose: 1 tab Sodium Chloride (Sodium Chloride 0.9% 10 Ml Flush Syringe) 10 ml IV BID [facility] Last Admin: 01/25/22 09:45 Dose: 10 ml Sodium Chloride (Sodium Chloride 0.9% 10 Ml Flush Syringe) 10 ml IV PRN PRN PRN Reason: LINE FLUSH Exam - Vital Signs Vital signs: Vital Signs Pulse Resp BP Pulse Ox 69 16 156/68 97 01/24/22 12:46 01/24/22 12:46 01/24/22 12:46 01/24/22 12:46 Results - Lab Results 01/24/22 14:15 01/25/22 04:09 Most recent lab results Calcium 8.3 mg/dL (8.4-10.2) L 01/25/22 04:09
--- NOTE | 2022-01-25 16:32 | Consultation ---
History of Present Illness Consult date: 01/25/22 Requesting physician: ANNABEL SOSA Consult reason: chest pain History of present illness: Pt is a 46-year-old female with a hx of CAD (severe diag dz not amenable to intervention on [place] 12/04/2021), ESRD on HD, HFrEF/CMP (EF 35-40%, primarily non- ischemic), valvular heart disease, SVT, HTN, DM2, and morbid obesity/?OHS (uses 3L home O2) who presented with complaints of chest pain. Pt reports sharp mid- sternal pain that started while she was on her way to HD yesterday. Non- radiating. No aggravating factors. Relieved by ASA per niece at bedside. Pt ran out of many of her medications x 1-2 days prior to onset of sx. Has some ROBERTS but no SOB at rest. Has chronic edema. Denies palpitations, dizziness, lightheade dness, or syncope. Ambulates with a walker but has not been moving much the past few months according to family. Of note, pt's niece reports pt recently moved from [place] and is in the process of establishing care with a PCP. 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 Pt has been seen by our group during previous hospitalizations but has not followed up as an outpatient. Also of note, pt lost her spouse in November and is grieving. Niece is trying to help find counselor/Psych services. Past History Past Medical History: arrhythmia (SVT), anemia, CAD, diabetes, dialysis, ESRD, heart failure, hypertension, other (late onset menarche) Past Surgical History: denies: valve replacement, CABG, PTCA Social history: single. denies: smoking, alcohol abuse Family history: diabetes, hypertension Medications and Allergies Allergies Allergy/AdvReac Type Severity Reaction Status Date / Time No Known Allergies Allergy Verified 01/24/22 12:50 Home Medications Medication Instructions Recorded Confirmed Last Taken Type Aspirin EC [Ecotrin] 325 mg PO QDAY 30 Days #30 tablet 01/21/22 Unknown Rx AtorvaSTATin [Lipitor] 40 mg PO QHS 01/21/22 01/21/22 Unknown History Clopidogrel [Plavix] 75 mg PO QDAY 90 Days #90 tab 01/21/22 Unknown Rx Hydralazine HCl 50 mg PO TID 01/21/22 01/21/22 Unknown History ISOSORBIDE MONOnitrate [Imdur ER] 30 mg PO DAILY 01/21/22 01/21/22 Unknown History Metoprolol Xl [Metoprolol 75 mg PO QPM 01/21/22 01/21/22 Unknown History SUCCINATE ER TAB] NIFEdipine [Nifedipine ER] 60 mg PO QDAY 01/21/22 01/21/22 Unknown History Nitroglycerin [Nitrostat] 0.4 mg SL Q5M PRN 30 Days #30 01/21/22 Unknown Rx tablet Active Meds: Active Medications Acetaminophen (Acetaminophen 325 Mg Tab) 650 mg PO Q4H PRN PRN Reason: Pain MILD(1-3)/Fever >100.5/CARDENAS Albuterol (Albuterol 2.5 Mg/3 Ml Nebu) 2.5 mg IH Q4HRT PRN PRN Reason: Shortness Of Breath Aspirin (Aspirin Ec 325 Mg Tab) 325 mg PO QDAY [facility] Last Admin: 01/25/22 09:44 Dose: 325 mg Atorvastatin Calcium (Atorvastatin 40 Mg Tab) 40 mg PO QHS [facility] Last Admin: 01/24/22 21:40 Dose: 40 mg Clopidogrel Bisulfate (Clopidogrel 75 Mg Tab) 75 mg PO QDAY [facility] Last Admin: 01/25/22 09:44 Dose: 75 mg Hydralazine HCl (Hydralazine 25 Mg Tab) 50 mg PO Q8HR [facility] Last Admin: 01/25/22 05:10 Dose: 50 mg Insulin Human Lispro (Insulin Lispro 100 Unit/Ml) 0 unit SUB-Q [facility]; Protocol Last Admin: 01/25/22 11:30 Dose: 2 unit Isosorbide Mononitrate (Isosorbide Mononitrate Er 30 Mg Tab) 30 mg PO DAILY [facility] Last Admin: 01/25/22 09:44 Dose: 30 mg Metoprolol Succinate (Metoprolol Succinate Xl 25 Mg Tab) 75 mg PO QPM [facility] Last Admin: 01/24/22 21:37 Dose: Not Given Morphine Sulfate (Morphine 4 Mg/1 Ml Inj) 2 mg IV Q14H PRN PRN Reason: Pain , Severe (7-10) Last Admin: 01/25/22 03:12 Dose: 2 mg Nifedipine (Nifedipine Xl 60 Mg Tab) 60 mg PO QDAY [facility] Last Admin: 01/25/22 09:44 Dose: 60 mg Nitroglycerin (Nitroglycerin 0.4 Mg Tab Subl) 0.4 mg SL Q5M PRN PRN Reason: Chest Pain Ondansetron HCl (Ondansetron 4 Mg/2 Ml Inj) 4 mg IV Q8H PRN PRN Reason: Nausea And Vomiting Oxycodone/Acetaminophen (Oxycodone /Acetaminophen 5-325mg Tab) 1 tab PO Q6H PRN PRN Reason: Pain, Moderate (4-6) Last Admin: 01/25/22 09:45 Dose: 1 tab Sodium Chloride (Sodium Chloride 0.9% 10 Ml Flush Syringe) 10 ml IV BID ANTHONY Last Admin: 01/25/22 09:45 Dose: 10 ml Sodium Chloride (Sodium Chloride 0.9% 10 Ml Flush Syringe) 10 ml IV PRN PRN PRN Reason: LINE FLUSH Review of Systems Constitutional: weight gain, no fever, no chills Ears, nose, mouth and throat: no nasal congestion, no sore throat Cardiovascular: chest pain, edema, dyspnea on exertion, no palpitations, no syncope, no lightheadedness Respiratory: dyspnea on exertion, no cough Gastrointestinal: no abdominal pain, no nausea, no vomiting Genitourinary Female: no dysuria Menstruation: currently menstrual Musculoskeletal: no myalgias Integumentary: no rash, no wounds Neurological: no numbness, no tingling, no seizures, no syncope, no vertigo, no headaches Endocrine: no cold intolerance, no heat intolerance Hematologic/Lymphatic: no easy bruising, no easy bleeding Allergic/Immunologic: no anaphylaxis Physical Examination Vital Signs Pulse Resp BP Pulse Ox 69 16 156/68 97 01/24/22 12:46 01/24/22 12:46 01/24/22 12:46 01/24/22 12:46 General appearance: no acute distress HEENT: Positive: Normocephaly, Other (blind R eye) Neck: Positive: neck supple, trachea midline. Negative: JVD/HJR Cardiac: Positive: Reg Rate and Rhythm, S1/S2, Systolic Murmur Lungs: Positive: Decreased Breath Sounds Neuro: Positive: Grossly Intact Abdomen: Positive: Soft. Negative: Tender Skin: Negative: Rash, Wound Musculoskeletal: No Pain Extremities: Present: upper extr. pulses, edema (BLE), warm Results 01/24/22 14:15 01/25/22 04:09 Comprehensive Metabolic Panel 01/25/22 Range/Units 04:09 Sodium 143 (137-145) mmol/L Potassium 4.5 (3.6-5.0) mmol/L Chloride 100.5 (98-107) mmol/L Carbon Dioxide 28 (22-30) mmol/L BUN 66 H (7-17) mg/dL Creatinine 8.9 H (0.6-1.2) mg/dL Glucose 198 H (65-100) mg/dL Calcium 8.3 L (8.4-10.2) mg/dL - Imaging and Cardiology Echo: report reviewed Cardiac cath: report reviewed EKG: report reviewed, image reviewed - EKG Interpretation EKG: no acute changes EKG interpretations - Telemetry EKG Rhythm: Sinus Rhythm - EKG Sinus rhythms and dysrhythmias: sinus rhythm Chamber hypertrophy or enlargement: left ventricular hypertro Repolarization changes or abnormalities: nonspecific abnormality, ST segment, and/or T wave Assessment and Plan Assessment: Atypical Chest Pain Elevated Tn ?Type 2 [place] CAD (severe diag dz not amenable to intervention on [place] 12/04/2021) Chronic Respiratory Failure (uses 3L home O2) Acute on Chronic HFrEF CMP (EF 35-40%, primarily non-ischemic per [facility] Cardiology) VHD (Mod MR / Mod-Severe TR / Mild-Mod RI) ESRD on HD Anemia Pancytopenia HTN DM2 Morbid Obesity ?OHS/MATT H/o SVT (12/01/2021, resolved s/p adenosine) Medical Non-Compliance Cardiographics: Cardiac Catheterization 12/04/2021 1. Left main artery: 0 % 2. Proximal left anterior descending artery: 30% 3. Mid-Distal left anterior descending artery: 40% 1. Diagonal artery: Diffusely diseased artery with serial 80 to 90% lesion in segment, appears occluded with some left to left collaterals. Does not appear to be a good target for intervention. 4. Circumflex/obtuse marginal artery: Very large territory, 10-20% 5. Right coronary artery: Small, nondominant, 20%. There appears to be a heavily calcified lesion within the conus branch. 6. Coronary dominance: _Left_ 7. Left ventricle ejection fraction: 30 % 8. Left ventricle wall motion: Anterolateral akinesis with global hypokinesis 9. LVEDP: 20 mmHg 10. LV-Aorta gradient: 0 mmHg Summary: Severe diagonal artery disease as detailed above, not a good candidate for intervention. Would recommend treating this conservatively. Echocardiogram 12/01/2021 LVEF 35 - 40%. LV systolic function is moderately decreased. Mild concentric LV hypertrophy. Hypokinetic basal anterolateral, mid anterior, mid anterolateral, apical anterior, apical lateral, and apex LV wall. Systolic septal flattening consistent with RV pressure overload. RV systolic function is mildly reduced. Unable to assess LV diastolic function. RV moderately dilated. RV systolic function is moderately reduced. LA moderately dilated. Unclear echo dense structure noted on the roof of LA. Atrial septal bowing noted into the LA suggestive of right sided pressure increase. Moderate mitral regurgitation. Moderate to severe tricuspid regurgitation. Mild to moderate pulmonary regurgitation. Compared to previous echo, there are significant changes. Plan: Chest pain is atypical. Chest pain-free upon exam. 1st troponin elevated -> 0.123. Trend cardiac enzymes. Pt has chronically elevated troponins in the setting of ESRD (currently same range as previous admissions 01/09/22 & 01/20/22). ECG reveals NSR with LVH and non-specific T wave abnormalities. Recent [place] findings reviewed (as above). Medical mgmt recommended. Home cardiac regimen: ASA 81mg daily, Clopridogrel 75mg daily, Atorvastatin 40mg nightly, Toprol XL 75mg daily, Imdur 30mg daily, Hydralazine 25mg BID. Can consider switching Imdur & Hydralazine to BiDil. Not on ACEI/ARB/ARNI due to renal fxn and h/o non-compliance with HD. Volume optimization via HD. Pt seen in conjunction with Dr. Singh, who agrees with the assessment and plan of care. - Patient Problems (1) Chest pain Current Visit: Yes Status: Acute Qualifiers: Qualified Code(s): R07.9 - Chest pain, unspecified (2) Elevated troponin Current Visit: Yes Status: Acute (3) ESRD needing dialysis Current Visit: Yes Status: Acute (4) Coronary artery disease Current Visit: Yes Status: Chronic Qualifiers: Coronary Disease-Associated Artery/Lesion type: [place] artery [place] vs. transplanted heart: [place] heart (5) NICM (nonischemic cardiomyopathy) Current Visit: Yes Status: Chronic (6) Valvular heart disease Current Visit: Yes Status: Chronic (7) Pancytopenia Current Visit: Yes Status: Acute (8) Anemia Current Visit: Yes Status: Chronic (9) Hypertension Current Visit: Yes Status: Chronic Qualifiers: Hypertension type: primary hypertension Qualified Code(s): I10 - Essential (primary) hypertension (10) DM2 (diabetes mellitus, type 2) Current Visit: Yes Status: Chronic (11) Medical non-compliance Current Visit: Yes Status: Chronic
[2022-01-25] MEDS: METOPROLOL SUCCINATE XL 25 MG TAB PO SCH (18:20)
[2022-01-26] MEDS ORDERED: SODIUM CHLORIDE 0.9% 100 ML IV PRN (02:16)
[2022-01-26] MEDS: oxyCODONE /ACETAMINOPHEN 5-325MG TAB PO PRN ×2 (03:11→17:57)
[2022-01-26] MEDS: hydrALAZINE 25 MG TAB PO SCH ×3 (05:38→22:29)
[2022-01-26] MEDS: INSULIN LISPRO 100 UNIT/ML SUB-Q SCH ×4 (07:30→22:19)
--- NOTE | 2022-01-26 09:39 | Cat Scan Report ---
CT ABDOMEN AND PELVIS WITHOUT CONTRAST INDICATION / CLINICAL INFORMATION: abd pain. TECHNIQUE: Axial CT images were obtained through the abdomen and pelvis without IV contrast. All CT scans at this location are performed using CT dose reduction for ALARA by means of automated exposure control. COMPARISON: CT dated 01/20/2022 FINDINGS: Exam is limited secondary to patient's inability to raise arms. LOWER CHEST: Lingular consolidation. Mosaic attenuation of both lung bases bibasilar subsegmental ate lectasis. Severe coronary artery calcification and aortic valvular calcifications. Cardiomegaly. LIVER: Enlarged with dilated IVC and hepatic veins. GALLBLADDER: Cholelithiasis BILE DUCTS: No significant abnormality. PANCREAS: Atrophic SPLEEN: Enlarged ADRENALS: No significant abnormality. RIGHT KIDNEY / URETER: Atrophic LEFT KIDNEY / URETER: Atrophic STOMACH / SMALL BOWEL: No significant abnormality. COLON: Similar mild rectal wall thickening with adjacent fat stranding. APPENDIX: No significant abnormality. PERITONEUM: Small volume ascites and mesenteric congestion. No free air. No fluid collection. LYMPH NODES: No significant adenopathy. AORTA / ARTERIES: Extensive vascular calcifications. IVC / VEINS: No significant abnormality. URINARY BLADDER: No significant abnormality. REPRODUCTIVE ORGANS: Uterus is enlarged with multiple fibroids. Suspected complex right broad ligamen t fibroid versus partially cystic adnexal lesion, similar to prior. ADDITIONAL FINDINGS: Anasarca SKELETAL SYSTEM: Partially imaged right femoral internal fixation hardware. Irregularity of both gracie c bones is suspected to be related to renal osteodystrophy. Ankylosis of T11 and T12. IMPRESSION: 1. Similar mild rectal wall thickening with moderate amount of stool in the rectum. Recommend correla tion for impaction. Proctitis is also a consideration. 2. Cardiomegaly with sequela of hypervolemia including ascites, anasarca, and pulmonary edema. 3. Lingular consolidation, which could reflect atelectasis or developing pneumonia. 4. Uterus is enlarged with multiple fibroids. Suspected right broad ligament fibroids appear similar to prior. 5. Additional chronic/incidental findings detailed above. Signer Name: Mello Love MD Signed: 01/26/2022 9:35 AM Workstation Name: [id number]
--- NOTE | 2022-01-26 10:14 | Progress Note ---
Assessment and Plan Assessment and plan: 46 YO Female with ESRD on HD(T,R,Sa), Systolic CHF(EF35%), Obesity, HTN, DM, HLD, Metabolic Syndrome, Noncompliance, CAD on DAPT presents to ED for evaluation of a sudden onset of chest tightness while preparing to go to her routine dialysis center for dialysis on 01/24/2022. Patient also acknowledged de creased exercise tolerance, noncompliance with low-sodium diet, orthopnea, paroxysmal nocturnal dyspnea, as well as 8 pound 8 weight gain over the past 1 week. Patient found to have a systolic blood pressure in the 160s, end-stage renal disease complicated by fluid overload, pulmonary edema, as well as clinical symptoms consistent with CHF decompensation. Patient was admitted with diagnosis below: Acute on chronic diastolic heart failure. Stress test May 2017 was negative for ischemia and an EF of 55%. Chest pain/chronically elevated troponin Nonischemic cardiomyopathy ESRD Hypertensive urgency Diabetes mellitus type 2 Anemia of CKD Pulmonary edema/fluid overload Obesity hypoventilation syndrome 01/25/2022. Patient complaining of right upper and lower abdominal pain curren tly. We will check CT scan of the abdomen and pelvis for further evaluation. We will consult nephrology for further evaluation. Patient to resume hemodialysis per nephrology recommendations. Cardiology consultation. 01/26/2022. Patient continues to complain of right upper and lower quadrant abdo bubba pain. Follow-up CT scan of the abdomen pelvis. Recheck CBC and transfuse for hemoglobin less than 7.0. Continue aspirin, Plavix, Lipitor, Toprol, Imdur and hydralazine. Not on ACEI/ARB/ARNI due to renal fxn and h/o non-compliance with HD. History Interval history: No new issues overnight. Hospitalist Physical - Constitutional Vitals: Temp Pulse Resp BP Pulse Ox 98.2 F 55 L 18 151/44 98 01/26/22 05:33 01/26/22 05:38 01/26/22 05:33 01/26/22 05:38 01/26/22 05:33 General appearance: Present: no acute distress - EENT Eyes: Present: PERRL, EOM intact ENT: hearing intact, clear oral mucosa, dentition normal - Neck Neck: Present: supple, normal ROM - Respiratory Respiratory effort: normal Respiratory: bilateral: CTA - Cardiovascular Rhythm: regular Heart Sounds: Present: S1 & S2. Absent: gallop, rub - Extremities Extremities: no ischemia, No edema, Full ROM - Abdominal General gastrointestinal: soft, non-tender, non-distended, normal bowel sounds - Integumentary Integumentary: Present: clear, warm, dry - Neurologic Neurologic: CNII-XII intact, moves all extremities HEART Score - HEART Score EKG: Normal Age: 45-65 Risk factors: 1-2 risk factors Troponin: Troponin T 0.127 ng/mL (0.00-0.029) H* 01/25/22 22:59 Troponin: < normal limit - Critical Actions Critical Actions: 0-3 pts:0.9-1.7%risk of adverse cardiac event.Candidate for discharge Results - Labs CBC & Chem 7: 01/24/22 14:15 01/25/22 04:09 Labs: Laboratory Last Values WBC 2.0 K/mm3 (4.5-11.0) L 01/24/22 14:15 RBC 2.37 M/mm3 (3.65-5.03) L 01/24/22 14:15 Hgb 7.4 gm/dl (10.1-14.3) L 01/24/22 14:15 Hct 21.4 % (30.3-42.9) L 01/24/22 14:15 MCV 91 fl (79-97) 01/24/22 14:15 MCH 31 pg (28-32) 01/24/22 14:15 MCHC 35 % (30-34) H 01/24/22 14:15 RDW 15.4 % (13.2-15.2) H 01/24/22 14:15 Plt Count 98 K/mm3 (140-440) L 01/24/22 14:15 Add Manual Diff Complete 01/24/22 14:15 Total Counted 100 01/24/22 14:15 Seg Neuts % (Manual) 74.0 % (40.0-70.0) H 01/24/22 14:15 Band Neutrophils % 0 % 01/24/22 14:15 Lymphocytes % (Manual) 12.0 % (13.4-35.0) L 01/24/22 14:15 Reactive Lymphs % (Man) 0 % 01/24/22 14:15 Monocytes % (Manual) 4.0 % (0.0-7.3) 01/24/22 14:15 Eosinophils % (Manual) 4.0 % (0.0-4.3) 01/24/22 14:15 Metamyelocytes % 0 % 01/24/22 14:15 Myelocytes % 0 % 01/24/22 14:15 Promyelocytes % 0 % 01/24/22 14:15 Blast Cells % 0 % 01/24/22 14:15 Nucleated RBC % Not Reportable 01/24/22 14:15 Seg Neutrophils # Man 1.5 K/mm3 (1.8-7.7) L 01/24/22 14:15 Band Neutrophils # 0.0 K/mm3 01/24/22 14:15 Lymphocytes # (Manual) 0.2 K/mm3 (1.2-5.4) L 01/24/22 14:15 Abs React Lymphs (Man) 0.0 K/mm3 01/24/22 14:15 Monocytes # (Manual) 0.1 K/mm3 (0.0-0.8) 01/24/22 14:15 Eosinophils # (Manual) 0.1 K/mm3 (0.0-0.4) 01/24/22 14:15 Basophils # (Manual) 0.1 K/mm3 (0.0-0.1) 01/24/22 14:15 Metamyelocytes # 0.0 K/mm3 01/24/22 14:15 Myelocytes # 0.0 K/mm3 01/24/22 14:15 Promyelocytes # 0.0 K/mm3 01/24/22 14:15 Blast Cells # 0.0 K/mm3 01/24/22 14:15 WBC Morphology Not Reportable 01/24/22 14:15 WBC Morphology TNR 01/24/22 14:15 Hypersegmented Neuts Not Reportable 01/24/22 14:15 Hyposegmented Neuts Not Reportable 01/24/22 14:15 Hypogranular Neuts Not Reportable 01/24/22 14:15 Smudge Cells Not Reportable 01/24/22 14:15 Toxic Granulation Not Reportable 01/24/22 14:15 Toxic Vacuolation Not Reportable 01/24/22 14:15 Dohle Bodies Not Reportable 01/24/22 14:15 Pelger-Huet Anomaly Not Reportable 01/24/22 14:15 Deep Rods Not Reportable 01/24/22 14:15 Platelet Estimate Consistent w auto 01/24/22 14:15 Clumped Platelets Not Reportable 01/24/22 14:15 Plt Clumps, EDTA Not Reportable 01/24/22 14:15 Large Platelets Not Reportable 01/24/22 14:15 Giant Platelets Not Reportable 01/24/22 14:15 Platelet Satelliting Not Reportable 01/24/22 14:15 Plt Morphology Comment Not Reportable 01/24/22 14:15 RBC Morphology Not Reportable 01/24/22 14:15 Dimorphic RBCs Not Reportable 01/24/22 14:15 Polychromasia Not Reportable 01/24/22 14:15 Hypochromasia Few 01/24/22 14:15 Poikilocytosis Not Reportable 01/24/22 14:15 Anisocytosis Not Reportable 01/24/22 14:15 Microcytosis Not Reportable 01/24/22 14:15 Macrocytosis Not Reportable 01/24/22 14:15 Spherocytes Not Reportable 01/24/22 14:15 Pappenheimer Bodies Not Reportable 01/24/22 14:15 Sickle Cells Not Reportable 01/24/22 14:15 Target Cells Few 01/24/22 14:15 Tear Drop Cells Few 01/24/22 14:15 Ovalocytes Not Reportable 01/24/22 14:15 Helmet Cells Not Reportable 01/24/22 14:15 Singh-Daguao Bodies Not Reportable 01/24/22 14:15 [place] Rings Not Reportable 01/24/22 14:15 Christopher Cells Not Reportable 01/24/22 14:15 Bite Cells Not Reportable 01/24/22 14:15 Crenated Cell Not Reportable 01/24/22 14:15 Elliptocytes Not Reportable 01/24/22 14:15 Acanthocytes (Spur) Not Reportable 01/24/22 14:15 Rouleaux Not Reportable 01/24/22 14:15 Hemoglobin C Crystals Not Reportable 01/24/22 14:15 Schistocytes Not Reportable 01/24/22 14:15 Malaria parasites Not Reportable 01/24/22 14:15 Jeremías Bodies Not Reportable 01/24/22 14:15 Hem Pathologist Commnt No 01/24/22 14:15 PT 13.4 Sec. (12.2-14.9) 01/24/22 14:15 INR 0.92 (0.87-1.13) 01/24/22 14:15 Sodium 143 mmol/L (137-145) 01/25/22 04:09 Potassium 4.5 mmol/L (3.6-5.0) 01/25/22 04:09 Chloride 100.5 mmol/L (98-107) 01/25/22 04:09 Carbon Dioxide 28 mmol/L (22-30) 01/25/22 04:09 Anion Gap 19 mmol/L 01/25/22 04:09 BUN 66 mg/dL (7-17) H 01/25/22 04:09 Creatinine 8.9 mg/dL (0.6-1.2) H 01/25/22 04:09 Estimated GFR 6 ml/min 01/25/22 04:09 BUN/Creatinine Ratio 7 % 01/25/22 04:09 Glucose 198 mg/dL (65-100) H 01/25/22 04:09 POC Glucose 199 mg/dL (70-105) H 01/25/22 21:18 Calcium 8.3 mg/dL (8.4-10.2) L 01/25/22 04:09 Total Bilirubin 0.60 mg/dL (0.1-1.2) 01/24/22 14:15 AST 18 units/L (5-40) 01/24/22 14:15 ALT 20 units/L (7-56) 01/24/22 14:15 Alkaline Phosphatase 83 units/L (35-129) 01/24/22 14:15 Troponin T 0.127 ng/mL (0.00-0.029) H* 01/25/22 22:59 C-Reactive Protein 0.30 mg/dL (0.00-1.30) 01/24/22 14:15 NT-Pro-B Natriuret Pep > 63224 pg/mL (0-450) H 01/24/22 14:15 Total Protein 6.8 g/dL (6.3-8.2) 01/24/22 14:15 Albumin 4.3 g/dL (3.9-5) 01/24/22 14:15 Albumin/Globulin Ratio 1.7 % 01/24/22 14:15 Lipase 25 units/L (13-60) 01/24/22 14:15 Nasal Screen MRSA (PCR) Negative (Negative) 01/25/22 Unknown Hawk/IV: Voiding Method External Female Catheter Active Medications - Current Medications Current Medications: Generic Name Dose Route Start Last Admin Trade Name Freq PRN Reason Stop Dose Admin Acetaminophen 650 mg 01/24/22 17:19 Acetaminophen 325 Mg Tab PO Q4H PRN Pain MILD(1-3)/Fever >100.5/CARDENAS Albuterol 2.5 mg 01/24/22 17:19 Albuterol 2.5 Mg/3 Ml Nebu IH Q4HRT PRN Shortness Of Breath Aspirin 325 mg 01/25/22 10:00 01/25/22 09:44 Aspirin Ec 325 Mg Tab PO 325 mg QDAY ANTHONY Administration Atorvastatin Calcium 40 mg 01/24/22 22:00 01/25/22 22:08 Atorvastatin 40 Mg Tab PO 40 mg QHS ANTHONY Administration Clopidogrel Bisulfate 75 mg 01/25/22 10:00 01/25/22 09:44 Clopidogrel 75 Mg Tab PO 75 mg QDAY ANTHONY Administration Hydralazine HCl 50 mg 01/24/22 22:00 01/26/22 05:38 Hydralazine 25 Mg Tab PO 50 mg Q8HR ANTHONY Administration Sodium Chloride 100 mls @ 999 mls/hr 01/26/22 02:16 Nacl 0.9% IV THAI PRN Hypotension Insulin Human Lispro 0 unit 01/24/22 22:00 01/25/22 22:09 Insulin Lispro 100 Unit/Ml SUB-Q 2 unit ACHS ANTHONY Administration Protocol Isosorbide Mononitrate 30 mg 01/25/22 10:00 01/25/22 09:44 Isosorbide Mononitrate Er 30 Mg Tab PO 30 mg DAILY ANTHONY Administration Metoprolol Succinate 75 mg 01/24/22 18:00 01/25/22 18:20 Metoprolol Succinate Xl 25 Mg Tab PO 75 mg QPM ANTHONY Administration Morphine Sulfate 2 mg 01/24/22 17:19 01/25/22 03:12 Morphine 4 Mg/1 Ml Inj IV 2 mg Q14H PRN Administration Pain , Severe (7-10) Nifedipine 60 mg 01/25/22 10:00 01/25/22 09:44 Nifedipine Xl 60 Mg Tab PO 60 mg QDAY ANTHONY Administration Nitroglycerin 0.4 mg 01/24/22 17:21 Nitroglycerin 0.4 Mg Tab Subl SL Q5M PRN Chest Pain Ondansetron HCl 4 mg 01/24/22 17:19 Ondansetron 4 Mg/2 Ml Inj IV Q8H PRN Nausea And Vomiting Oxycodone/Acetaminophen 1 tab 01/24/22 17:19 01/26/22 03:11 Oxycodone /Acetaminophen 5-325mg Tab PO 1 tab Q6H PRN Administration Pain, Moderate (4-6) Sodium Chloride 10 ml 01/24/22 22:00 01/25/22 22:09 Sodium Chloride 0.9% 10 Ml Flush Syringe IV 10 ml BID ANTHONY Administration Sodium Chloride 10 ml 01/24/22 17:19 Sodium Chloride 0.9% 10 Ml Flush Syringe IV PRN PRN LINE FLUSH Nutrition/Malnutrition Assess - Dietary Evaluation Nutrition/Malnutrition Findings: Nutrition Notes Start: 01/25/22 13:59 Freq: Status: Active Protocol: Document 01/25/22 13:59 TEAGAN (Rec: 01/25/22 14:28 TEAGAN [email or web address]) Nutrition Notes Need for Assessment generated from: service engineer Initial or Follow up Assessment Current Diagnosis CKD(stage I-IV),Coronary Artery Disease,Diabetes, Hypertension,Hyperlipidemia Other Pertinent Diagnosis ESRD+HD, HFrEF, Fluid Overload , Pulmonary Edema, CHF, OHS, Anemia. Current Diet Renal Diet (since D 01/24), D Suppl (since D 01/25). Labs/Tests 01/25: BUN 66, Crea 8.9, Glu 198, Ca 8.3. Pertinent Medications 01/25: Humalog 2U, others nutritionally unremarkable. 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 Weight Status Morbidly Obese Subjective/Other Information RD consult for skin risk assessment. Pt's PO intake of meals has been Poor (25-50%) but well tolerated, according to ADL notes. Iwill prescribe dietary supplements to compensate for poor or insufficient PO intake of meals during LOS. Pt is on Room Air, O2 saturation @ 95%, according to Physical Assessment History notes. Pt states having gain 8 lb body weight during the last week, according to History & Physical notes. Pt complains of RUQ & RLQ abdominal pain, according to History & Physical notes. Pt show no signs of concern for skin risk at the time, according to Physical Assessment History notes. Percent of energy/protein needs met: Prescribed Renal Diet provides for energy/protein needs (2, 072 Kcal/77 g) during LOS; additionally, Dietary Supplements will compensate for possible poor or insufficient PO intake of meals with 850 Kcal and 57 g of protein. Burn Absent Trauma Absent GI Symptoms Other Food Allergy No Skin Integrity/Comment Assessment WNL. Current % PO Poor (25-49%) Minimum of two criteria No Fluid Accumulation Moderate to Severe (severe) Reduced Engraver Hand Soft Metals Strength N/A (non-severe) Protein-Calorie Malnutrition N\A #1 Nutrition Diagnosis Predicted suboptimal energy intake Etiology Possibly secondary to missed HD, CHF. As Evidenced by Signs and Symptoms Pt's PO intake of meals has been Poor (25-50%) but well tolerated, according to ADL notes. Is patient on ventilator? No Is Patient Ambulatory and/or Out of Bed Yes REE-([place]-St. Jeor-ambulatory/OOB) [ 2207.075 NUTR.MSJOOB] Kcal/Kg value to use for calculation 12 Approximate Energy Requirements Using 1306 kcal/Kg Calculation Used for Recommendations Kcal/kg Additional Notes Protein: >1.2 g/Kg AdjBW; >97 g/day. Fluids: 1 ml/Kcal, or as per MD. Nutrition Intervention Change Diet Order: Continue Renal Diet as tolerated. Add Supplement/Snack (indicate name/kcal Start 8 fl oz Nepro w/ /protein ) CARBSTEADY: BID. Provides kCal: 850 Provides Protein (gm) 38 Goal #1 Compensate, through dietary supplementation, for possible poor or insufficient PO intake of meals during LOS. Goal #2 Adjust the dietary intervention to better serve Pt's needs and clinical conditions during LOS. Follow-Up By: 01/30/22 Additional Comments Continue monitoring food tolerance, %PO intake of meals , dietary supplements, and BM.
[2022-01-26] MEDS ORDERED: diphenhydrAMINE 50 MG/ML VIAL ONE (11:19)
--- NOTE | 2022-01-26 11:19 | Progress Note ---
Assessment and Plan Assessment: Atypical Chest Pain non stemiType 2 [place] CAD (severe diag dz not amenable to intervention on [facility] 12/04/2021) Chronic Respiratory Failure (uses 3L home O2) Acute on Chronic HFrEF CMP (EF 35-40%, primarily non-ischemic per [facility] Cardiology) VHD (Mod MR / Mod-Severe TR / Mild-Mod PA) ESRD on HD Anemia Pancytopenia HTN DM2 Morbid Obesity ?OHS/MATT H/o SVT (12/01/2021, resolved s/p adenosine) Medical Non-Compliance Cardiographics: Cardiac Catheterization 12/04/2021 1. Left main artery: 0 % 2. Proximal left anterior descending artery: 30% 3. Mid-Distal left anterior descending artery: 40% 1. Diagonal artery: Diffusely diseased artery with serial 80 to 90% lesion in segment, appears occluded with some left to left collaterals. Does not appear to be a good target for intervention. 4. Circumflex/obtuse marginal artery: Very large territory, 10-20% 5. Right coronary artery: Small, nondominant, 20%. There appears to be a heavily calcified lesion within the conus branch. 6. Coronary dominance: _Left_ 7. Left ventricle ejection fraction: 30 % 8. Left ventricle wall motion: Anterolateral akinesis with global hypokinesis 9. LVEDP: 20 mmHg 10. LV-Aorta gradient: 0 mmHg Summary: Severe diagonal artery disease as detailed above, not a good candidate for intervention. Would recommend treating this conservatively. Echocardiogram 12/01/2021 LVEF 35 - 40%. LV systolic function is moderately decreased. Mild concentric LV hypertrophy. Hypokinetic basal anterolateral, mid anterior, mid anterolateral, apical anterior, apical lateral, and apex LV wall. Systolic septal flattening consistent with RV pressure overload. RV systolic function is mildly reduced. Unable to assess LV diastolic function. RV moderately dilated. RV systolic function is moderately reduced. LA moderately dilated. Unclear echo dense structure noted on the roof of LA. Atrial septal bowing noted into the LA suggestive of right sided pressure increase. Moderate mitral regurgitation. Moderate to severe tricuspid regurgitation. Mild to moderate pulmonary regurgitation. Compared to previous echo, there are significant changes. rec: Atypical chest pain reproducible. Patient uses a walker. Advised to ambulate the patient. Patient may be discharged from a cardiovascular point of view abnormal troponin secondary non-STEMI type II being a dialysis patient. Not on ABEBE or ARB. Continue hydralazine nitrates beta-denisa statin and aspirin Subjective Date of service: 01/26/22 Principal diagnosis: cp Interval history: occasional cp with palapations Objective Vital Signs Temp Pulse Resp BP BP Pulse Ox 01/26/22 10:30 59 L 168/84 01/26/22 10:15 57 L 158/76 01/26/22 10:00 57 L 154/74 01/26/22 09:45 56 L 159/74 01/26/22 09:37 54 L 132/94 01/26/22 09:35 54 L 132/94 01/26/22 05:38 55 L 151/44 01/26/22 05:33 98.2 F 55 L 18 151/44 98 01/26/22 00:33 95 01/25/22 22:08 61 144/70 01/25/22 21:20 97.6 F 61 18 144/70 96 01/25/22 20:36 97 01/25/22 16:10 98.1 F 62 22 172/42 96 01/25/22 14:00 62 172/48 96 - Physical Examination General: No Apparent Distress HEENT: Positive: Normocephaly, Other (blind R eye) Neck: Positive: neck supple, trachea midline. Negative: JVD/HJR Cardiac: Positive: Reg Rate and Rhythm Lungs: Positive: clear to auscultation Neuro: Positive: Grossly Intact Abdomen: Positive: Soft. Negative: Tender Skin: Negative: Rash, Wound Musculoskeletal: No Pain Extremities: Present: upper extr. pulses, edema (BLE), warm - Imaging and Cardiology EKG: report reviewed, image reviewed Echo: report reviewed Cardiac cath: report reviewed - Telemetry EKG Rhythm: Sinus Rhythm - EKG Sinus rhythms and dysrhythmias: sinus rhythm Chamber hypertrophy or enlargement: left ventricular hypertro Repolarization changes or abnormalities: nonspecific abnormality, ST segment, and/or T wave
[2022-01-26] MEDS ORDERED: diphenhydrAMINE 50 MG/ML VIAL IV ONE (11:29)
--- NOTE | 2022-01-26 12:06 | Progress Note ---
Subjective Principal diagnosis: cp Interval history: Assessment and plan #End-stage kidney disease: Patient will continue to receive hemodialysis treatment 3 times a week on Wednesday schedule, she did receive hemodialysis treatment today has had some mild itching was given Benadryl, Dialysis nurse to monitor blood pressure and heart rate closely while ultrafiltration is done to make sure patient stays stable, Outpatient dialysis facility: [facility] dialysis facility #Access: Needs to be monitored during dialysis Will need follow-up with vascular in the outpatient setting #Chest pain patient also does have GERD symptoms started her on Protonix as well as Carafate, she may be considered for upper endoscopy Reviewed cardiology notes #Hypertension and volume: Stable at this time #Anemia in end-stage kidney disease: Monitor hemoglobin and hematocrit, erythropoietin as needed Bone mineral disorder and secondary hyperparathyroidism; Monitor phosphorus binders as necessary goal phosphorus less than 5-1/2 #Diet and nutrition: Protein supplementation as well as multivitamins #Medication changes: Started on Protonix and Carafate If there is any further question in regards to this patient renal care please contact me in [phone] If there are any renal related issues in regards to this patient please feel free to reach out without any hesitation at [phone] We'll continue to follow and make recommendation for renal standpoint. Progress note by: Prabhjot Palacios MD [address] [place] [id number] Tele [phone] [email or web address] Patient was seen today for follow-up of multiple renal related issues No complaints of any chest pain pressure or shortness of breath Interdisciplinary notes that also reviewed Events of 24 hours vitals labs intake output medications were reviewed Past medical history: Reviewed Family history: Reviewed Social history: Reviewed Allergies: Reviewed Physical examination: Vitals: Reviewed HEENT: No pallor or icterus oral mucosa moist Neck: Supple no JVD no thyromegaly Chest: Bilateral clear to auscultation anteriorly Heart: Regular rate and rhythm S1-S2 heard no S3-S4 Abdomen: Soft nontender no voluntary guarding rigidity rebound Extremity: Dry skin less than 1+ peripheral edema Psychiatric: No evidence of agitation and aggression noted Dermatology: No petechial rashes Labs and x-rays: Reviewed from today Objective - Vital Signs Vital signs: Vital Signs - 12hr 01/26/22 01/26/22 01/26/22 00:33 05:33 05:38 Temperature 98.2 F Pulse Rate 55 L 55 L Respiratory 18 Rate Blood Pressure 151/44 Blood Pressure 151/44 [Right] O2 Sat by Pulse 95 98 Oximetry O2 Sat by Pulse Oximetry [ Anterior Bilateral Throughout] 01/26/22 01/26/22 01/26/22 09:35 09:37 09:45 Temperature Pulse Rate 54 L 54 L 56 L Respiratory Rate Blood Pressure 132/94 132/94 159/74 Blood Pressure [Right] O2 Sat by Pulse Oximetry O2 Sat by Pulse Oximetry [ Anterior Bilateral Throughout] 01/26/22 01/26/22 01/26/22 10:00 10:15 10:30 Temperature Pulse Rate 57 L 57 L 59 L Respiratory Rate Blood Pressure 154/74 158/76 168/84 Blood Pressure [Right] O2 Sat by Pulse Oximetry O2 Sat by Pulse Oximetry [ Anterior Bilateral Throughout] 01/26/22 01/26/22 01/26/22 10:45 11:00 11:15 Temperature Pulse Rate 58 L 59 L 58 L Respiratory Rate Blood Pressure 160/89 180/72 188/74 Blood Pressure [Right] O2 Sat by Pulse Oximetry O2 Sat by Pulse Oximetry [ Anterior Bilateral Throughout] 01/26/22 01/26/22 01/26/22 11:30 11:31 11:45 Temperature 98.6 F Pulse Rate 60 56 L 63 Respiratory 20 Rate Blood Pressure 181/64 157/64 181/87 Blood Pressure [Right] O2 Sat by Pulse Oximetry O2 Sat by Pulse 99 Oximetry [ Anterior Bilateral Throughout] - Lab 01/24/22 14:15 01/25/22 04:09 Most recent lab results Calcium 8.3 mg/dL (8.4-10.2) L 01/25/22 04:09 Medications & Allergies - Medications Allergies/Adverse Reactions: Allergies No Known Allergies Allergy (Verified 01/24/22 12:50) Home Medications: Home Medications Medication Instructions Recorded Confirmed Last Taken Type Aspirin EC [Ecotrin] 325 mg PO QDAY 30 Days #30 tablet 01/21/22 Unknown Rx AtorvaSTATin [Lipitor] 40 mg PO QHS 01/21/22 01/21/22 Unknown History Clopidogrel [Plavix] 75 mg PO QDAY 90 Days #90 tab 01/21/22 Unknown Rx Hydralazine HCl 50 mg PO TID 01/21/22 01/21/22 Unknown History ISOSORBIDE MONOnitrate [Imdur ER] 30 mg PO DAILY 01/21/22 01/21/22 Unknown History Metoprolol Xl [Metoprolol 75 mg PO QPM 01/21/22 01/21/22 Unknown History SUCCINATE ER TAB] NIFEdipine [Nifedipine ER] 60 mg PO QDAY 01/21/22 01/21/22 Unknown History Nitroglycerin [Nitrostat] 0.4 mg SL Q5M PRN 30 Days #30 01/21/22 Unknown Rx tablet Active Medications: Generic Name Dose Route Start Last Admin Trade Name Freq PRN Reason Stop Dose Admin Acetaminophen 650 mg 01/24/22 17:19 Acetaminophen 325 Mg Tab PO Q4H PRN Pain MILD(1-3)/Fever >100.5/CARDENAS Albuterol 2.5 mg 01/24/22 17:19 Albuterol 2.5 Mg/3 Ml Nebu IH Q4HRT PRN Shortness Of Breath Aspirin 325 mg 01/25/22 10:00 01/25/22 09:44 Aspirin Ec 325 Mg Tab PO 325 mg QDAY ANTHONY Administration Atorvastatin Calcium 40 mg 01/24/22 22:00 01/25/22 22:08 Atorvastatin 40 Mg Tab PO 40 mg QHS ANTHONY Administration Clopidogrel Bisulfate 75 mg 01/25/22 10:00 01/25/22 09:44 Clopidogrel 75 Mg Tab PO 75 mg QDAY ANTHONY Administration Hydralazine HCl 50 mg 01/24/22 22:00 01/26/22 05:38 Hydralazine 25 Mg Tab PO 50 mg Q8HR ANTHONY Administration Sodium Chloride 100 mls @ 999 mls/hr 01/26/22 02:16 Nacl 0.9% IV THAI PRN Hypotension Insulin Human Lispro 0 unit 01/24/22 22:00 01/26/22 07:30 Insulin Lispro 100 Unit/Ml SUB-Q Not Given ACHS [facility] Protocol Isosorbide Mononitrate 30 mg 01/25/22 10:00 01/25/22 09:44 Isosorbide Mononitrate Er 30 Mg Tab PO 30 mg DAILY ANTHONY Administration Metoprolol Succinate 75 mg 01/24/22 18:00 01/25/22 18:20 Metoprolol Succinate Xl 25 Mg Tab PO 75 mg QPM ANTHONY Administration Morphine Sulfate 2 mg 01/24/22 17:19 01/25/22 03:12 Morphine 4 Mg/1 Ml Inj IV 2 mg Q14H PRN Administration Pain , Severe (7-10) Nifedipine 60 mg 01/25/22 10:00 01/25/22 09:44 Nifedipine Xl 60 Mg Tab PO 60 mg QDAY ANTHONY Administration Nitroglycerin 0.4 mg 01/24/22 17:21 Nitroglycerin 0.4 Mg Tab Subl SL Q5M PRN Chest Pain Ondansetron HCl 4 mg 01/24/22 17:19 Ondansetron 4 Mg/2 Ml Inj IV Q8H PRN Nausea And Vomiting Oxycodone/Acetaminophen 1 tab 01/24/22 17:19 01/26/22 03:11 Oxycodone /Acetaminophen 5-325mg Tab PO 1 tab Q6H PRN Administration Pain, Moderate (4-6) Pantoprazole Sodium 20 mg 01/26/22 13:00 Pantoprazole 20 Mg Tab PO QDAC ANTHONY Sodium Chloride 10 ml 01/24/22 22:00 01/25/22 22:09 Sodium Chloride 0.9% 10 Ml Flush Syringe IV 10 ml BID ANTHONY Administration Sodium Chloride 10 ml 01/24/22 17:19 Sodium Chloride 0.9% 10 Ml Flush Syringe IV PRN PRN LINE FLUSH Sucralfate 1 gm 01/26/22 14:00 Sucralfate 1 Gm Tab PO TID ANTHONY
[2022-01-26] MEDS: CLOPIDOGREL 75 MG TAB PO SCH (14:05)
[2022-01-26] MEDS: NIFEdipine XL 60 MG TAB PO SCH (14:05)
[2022-01-26] MEDS: PANTOPRAZOLE 20 MG TAB PO SCH (14:06)
[2022-01-26] MEDS: SUCRALFATE 1 GM TAB PO SCH ×2 (14:06→22:27)
[2022-01-26] MEDS: ASPIRIN EC 325 MG TAB PO SCH (14:06)
--- NOTE | 2022-01-26 16:51 | Electrocardiograph Report ---
[facility] Test Date: 2022-01-24 Test Time: 15:35:19 Pat Name: MIMI HASTINGS Department: Room: A389 1 Gender: F [employer] Former: PINEDA : 1975 Requested By: SOLOMON JOSE Order Number: [id number] Reading MD: Navya Duran Measurements Intervals [place] Rate: 62 P: 37 W[place]: 166 QRS: -18 QRSD: 126 T: 102 QT: 446 QTc: 452 Interpretive Statements Sinus rhythm Left anterior fascicular block LVH with secondary repolarization abnormality Compared to ECG 01/21/2022 11:30:43 No significant change Electronically Signed On 01-26-2022 16:51:24 EDT by Navya Duran
[2022-01-26] MEDS: METOPROLOL SUCCINATE XL 25 MG TAB PO SCH (17:37)
[2022-01-27 05:04] LABS: Hematocrit 20.4 % (30.3-42.9); Mean Corpuscular HGB Conc 34 % (30-34); Mean Corpuscular Volume 91 fl (79-97); Red Blood Count 2.25 M/mm3 (3.65-5.03); Red Cell Distribution Width 15.5 % (13.2-15.2)
[2022-01-27 05:07] LABS: Platelet Count 96 K/mm3 (140-440)
[2022-01-27] MEDS: hydrALAZINE 25 MG TAB PO SCH ×3 (05:37→21:54)
[2022-01-27 05:44] LABS: Calcium 8.8 mg/dL (8.4-10.2)
[2022-01-27 05:52] LABS: Eosinophils % (Manual) 0 % (0.0-4.3); Platelet Estimate Consistent w Auto; Total Cells Counted 50
[2022-01-27] MEDS: INSULIN LISPRO 100 UNIT/ML SUB-Q SCH ×4 (08:24→21:54)
[2022-01-27] MEDS: PANTOPRAZOLE 20 MG TAB PO SCH (08:29)
[2022-01-27] MEDS: SUCRALFATE 1 GM TAB PO SCH ×3 (08:29→21:53)
[2022-01-27] MEDS ORDERED: EPOETIN ALFA-EPBX 20,000 UNIT/1 ML VIAL IV PRN (09:21)
--- NOTE | 2022-01-27 09:24 | Progress Note ---
Subjective Date of service: 01/27/22 Principal diagnosis: cp Interval history: Assessment and plan #End-stage kidney disease: Patient will continue to receive hemodialysis treatment 3 times a week on Wednesday schedule Dialysis nurse to monitor blood pressure and heart rate closely while ultrafiltration is done to make sure patient stays stable, Outpatient dialysis facility: [facility] dialysis facility #Access: Needs to be monitored during dialysis Will need follow-up with vascular in the outpatient setting #Chest pain patient also does have GERD symptoms started her on Protonix as well as Carafate Reviewed cardiology notes #Hypertension and volume: Stable at this time #Anemia in end-stage kidney disease: Monitor hemoglobin and hematocrit, started erythropoietin, PRBCs as needed Bone mineral disorder and secondary hyperparathyroidism; Monitor phosphorus binders as necessary goal phosphorus less than 5-1/2 #Diet and nutrition: Protein supplementation as well as multivitamins If there is any further question in regards to this patient renal care please contact me in [phone] If there are any renal related issues in regards to this patient please feel free to reach out without any hesitation at [phone] We'll continue to follow and make recommendation for renal standpoint. SUbjective: Patient was seen today for follow-up of multiple renal related issues No complaints of any chest pain pressure or shortness of breath Interdisciplinary notes that also reviewed Events of 24 hours vitals labs intake output medications were reviewed Past medical history: Reviewed Family history: Reviewed Social history: Reviewed Allergies: Reviewed Physical examination: Vitals: Reviewed HEENT: No pallor or icterus oral mucosa moist Neck: Supple no JVD no thyromegaly Chest: Bilateral clear to auscultation anteriorly Heart: Regular rate and rhythm S1-S2 heard no S3-S4 Abdomen: Soft nontender no voluntary guarding rigidity rebound Extremity: Dry skin less than 1+ peripheral edema Psychiatric: No evidence of agitation and aggression noted Dermatology: No petechial rashes Labs and x-rays: Reviewed from today Objective - Vital Signs Vital signs: Vital Signs - 12hr 01/26/22 01/26/22 01/27/22 22:27 22:29 04:26 Temperature 98.8 F 98.5 F Pulse Rate 60 60 59 L Respiratory 20 18 Rate Blood Pressure 140/42 140/42 Blood Pressure 141/50 [Right] O2 Sat by Pulse 98 97 Oximetry 01/27/22 01/27/22 05:37 08:35 Temperature Pulse Rate 59 L Respiratory Rate Blood Pressure 141/50 Blood Pressure [Right] O2 Sat by Pulse 95 Oximetry - Lab 01/27/22 04:19 01/27/22 04:19 Most recent lab results Calcium 8.8 mg/dL (8.4-10.2) 01/27/22 04:19 Medications & Allergies - Medications Allergies/Adverse Reactions: Allergies No Known Allergies Allergy (Verified 01/24/22 12:50) Home Medications: Home Medications Medication Instructions Recorded Confirmed Last Taken Type Aspirin EC [Ecotrin] 325 mg PO QDAY 30 Days #30 tablet 01/21/22 01/26/22 Unknown Rx AtorvaSTATin [Lipitor] 40 mg PO QHS 01/21/22 01/26/22 Unknown History Clopidogrel [Plavix] 75 mg PO QDAY 90 Days #90 tab 01/21/22 01/26/22 Unknown Rx Hydralazine HCl 50 mg PO TID 01/21/22 01/26/22 Unknown History ISOSORBIDE MONOnitrate [Imdur ER] 30 mg PO DAILY 01/21/22 01/26/22 Unknown History Metoprolol Xl [Metoprolol 75 mg PO QPM 01/21/22 01/26/22 Unknown History SUCCINATE ER TAB] NIFEdipine [Nifedipine ER] 60 mg PO QDAY 01/21/22 01/26/22 Unknown History Nitroglycerin [Nitrostat] 0.4 mg SL Q5M PRN 30 Days #30 01/21/22 01/26/22 Unknown Rx tablet Active Medications: Generic Name Dose Route Start Last Admin Trade Name Freq PRN Reason Stop Dose Admin Acetaminophen 650 mg 01/24/22 17:19 Acetaminophen 325 Mg Tab PO Q4H PRN Pain MILD(1-3)/Fever >100.5/CARDENAS Albuterol 2.5 mg 01/24/22 17:19 Albuterol 2.5 Mg/3 Ml Nebu IH Q4HRT PRN Shortness Of Breath Aspirin 325 mg 01/25/22 10:00 01/26/22 14:06 Aspirin Ec 325 Mg Tab PO 325 mg QDAY ANTHONY Administration Atorvastatin Calcium 40 mg 01/24/22 22:00 01/26/22 22:28 Atorvastatin 40 Mg Tab PO 40 mg QHS ANTHONY Administration Clopidogrel Bisulfate 75 mg 01/25/22 10:00 01/26/22 14:05 Clopidogrel 75 Mg Tab PO 75 mg QDAY ANTHONY Administration Hydralazine HCl 50 mg 01/24/22 22:00 01/27/22 05:37 Hydralazine 25 Mg Tab PO 50 mg Q8HR ANTHONY Administration Sodium Chloride 100 mls @ 999 mls/hr 01/26/22 02:16 Nacl 0.9% IV THAI PRN Hypotension Insulin Human Lispro 0 unit 01/24/22 22:00 01/27/22 08:24 Insulin Lispro 100 Unit/Ml SUB-Q Not Given ACHS [facility] Protocol Isosorbide Mononitrate 30 mg 01/25/22 10:00 01/26/22 14:05 Isosorbide Mononitrate Er 30 Mg Tab PO 30 mg DAILY ANTHONY Administration Metoprolol Succinate 75 mg 01/24/22 18:00 01/26/22 17:37 Metoprolol Succinate Xl 25 Mg Tab PO 75 mg QPM ANTHONY Administration Morphine Sulfate 2 mg 01/24/22 17:19 01/25/22 03:12 Morphine 4 Mg/1 Ml Inj IV 2 mg Q14H PRN Administration Pain , Severe (7-10) Nifedipine 60 mg 01/25/22 10:00 01/26/22 14:05 Nifedipine Xl 60 Mg Tab PO 60 mg QDAY ANTHONY Administration Nitroglycerin 0.4 mg 01/24/22 17:21 Nitroglycerin 0.4 Mg Tab Subl SL Q5M PRN Chest Pain Ondansetron HCl 4 mg 01/24/22 17:19 Ondansetron 4 Mg/2 Ml Inj IV Q8H PRN Nausea And Vomiting Oxycodone/Acetaminophen 1 tab 01/24/22 17:19 01/26/22 17:57 Oxycodone /Acetaminophen 5-325mg Tab PO 1 tab Q6H PRN Administration Pain, Moderate (4-6) Pantoprazole Sodium 20 mg 01/26/22 14:00 01/27/22 08:29 Pantoprazole 20 Mg Tab PO 20 mg QDAC ANTHONY Administration Sodium Chloride 10 ml 01/24/22 22:00 01/26/22 22:28 Sodium Chloride 0.9% 10 Ml Flush Syringe IV 10 ml BID ANTHONY Administration Sodium Chloride 10 ml 01/24/22 17:19 Sodium Chloride 0.9% 10 Ml Flush Syringe IV PRN PRN LINE FLUSH Sucralfate 1 gm 01/26/22 14:00 01/27/22 08:29 Sucralfate 1 Gm Tab PO 1 gm TID ANTHONY Administration
[2022-01-27] MEDS: NIFEdipine XL 60 MG TAB PO SCH (10:16)
[2022-01-27] MEDS: CLOPIDOGREL 75 MG TAB PO SCH (10:16)
[2022-01-27] MEDS: ASPIRIN EC 325 MG TAB PO SCH (10:16)
[2022-01-27] MEDS: oxyCODONE /ACETAMINOPHEN 5-325MG TAB PO PRN ×3 (10:18→21:53)
--- NOTE | 2022-01-27 10:59 | Hem/Onc Consultation ---
History of Present Illness - History of Present Illness HEME DATA REVIEW 46YO disabled woman with DM and ESRD requiring HD adm twice in the past week for chest pain, found to have pancytopenia abd CT revealed rectal thickening, evidence of pulm edema, hepatosplenomegaly DATA REVIEWED BELOW IMP: pancytopenia could be due to heme malignancy autoimmune disease is another possibility REC: labs to include LDH, retic, HgEP, SPEP, HARINI consider bone marrow biopsy RBC transfusions for severe anemia neupogen only if infection is suspected or proven Laboratory Last Values WBC 1.7 K/mm3 (4.5-11.0) L* 01/27/22 04:19 Hgb 7.0 gm/dl (10.1-14.3) L 01/27/22 04:19 Hct 20.4 % (30.3-42.9) L 01/27/22 04:19 Plt Count 96 K/mm3 (140-440) L 01/27/22 04:19 Seg Neuts % (Manual) 66.0 % (40.0-70.0) 01/27/22 04:19 Lymphocytes % (Manual) 28.0 % (13.4-35.0) 01/27/22 04:19 PT 13.4 Sec. (12.2-14.9) 01/24/22 14:15 INR 0.92 (0.87-1.13) 01/24/22 14:15 AST 18 units/L (5-40) 01/24/22 14:15 ALT 20 units/L (7-56) 01/24/22 14:15 Alkaline Phosphatase 83 units/L (35-129) 01/24/22 14:15 Nasal Screen MRSA (PCR) Negative (Negative) 01/25/22 Unknown Past History Past Medical History: arrhythmia (SVT), anemia, CAD, diabetes, dialysis, ESRD, heart failure, hypertension, other (late onset menarche) Past Surgical History: denies: valve replacement, CABG, PTCA Social history: single. denies: smoking, alcohol abuse Family history: diabetes, hypertension Medications and Allergies Allergies Allergy/AdvReac Type Severity Reaction Status Date / Time No Known Allergies Allergy Verified 01/24/22 12:50 Home Medications Medication Instructions Recorded Confirmed Last Taken Type Aspirin EC [Ecotrin] 325 mg PO QDAY 30 Days #30 tablet 01/21/22 01/26/22 Unknown Rx AtorvaSTATin [Lipitor] 40 mg PO QHS 01/21/22 01/26/22 Unknown History Clopidogrel [Plavix] 75 mg PO QDAY 90 Days #90 tab 01/21/22 01/26/22 Unknown Rx Hydralazine HCl 50 mg PO TID 01/21/22 01/26/22 Unknown History ISOSORBIDE MONOnitrate [Imdur ER] 30 mg PO DAILY 01/21/22 01/26/22 Unknown History Metoprolol Xl [Metoprolol 75 mg PO QPM 01/21/22 01/26/22 Unknown History SUCCINATE ER TAB] NIFEdipine [Nifedipine ER] 60 mg PO QDAY 01/21/22 01/26/22 Unknown History Nitroglycerin [Nitrostat] 0.4 mg SL Q5M PRN 30 Days #30 01/21/22 01/26/22 Unknown Rx tablet Active Meds: Active Medications Acetaminophen (Acetaminophen 325 Mg Tab) 650 mg PO Q4H PRN PRN Reason: Pain MILD(1-3)/Fever >100.5/CARDENAS Albuterol (Albuterol 2.5 Mg/3 Ml Nebu) 2.5 mg IH Q4HRT PRN PRN Reason: Shortness Of Breath Aspirin (Aspirin Ec 325 Mg Tab) 325 mg PO QDAY [facility] Last Admin: 01/27/22 10:16 Dose: 325 mg Atorvastatin Calcium (Atorvastatin 40 Mg Tab) 40 mg PO QHS [facility] Last Admin: 01/26/22 22:28 Dose: 40 mg Clopidogrel Bisulfate (Clopidogrel 75 Mg Tab) 75 mg PO QDAY [facility] Last Admin: 01/27/22 10:16 Dose: 75 mg Epoetin Guillermo-epbx (Epoetin Guillermo-Epbx 20,000 Unit/1 Ml Vial) 20,000 unit IV THAI PRN PRN Reason: hemodialysis Hydralazine HCl (Hydralazine 25 Mg Tab) 50 mg PO Q8HR [facility] Last Admin: 01/27/22 05:37 Dose: 50 mg Sodium Chloride (Nacl 0.9%) 100 mls @ 999 mls/hr IV THAI PRN PRN Reason: Hypotension Insulin Human Lispro (Insulin Lispro 100 Unit/Ml) 0 unit SUB-Q [facility]; Protocol Last Admin: 01/27/22 08:24 Dose: Not Given Isosorbide Mononitrate (Isosorbide Mononitrate Er 30 Mg Tab) 30 mg PO DAILY [facility] Last Admin: 01/27/22 10:16 Dose: 30 mg Metoprolol Succinate (Metoprolol Succinate Xl 25 Mg Tab) 75 mg PO QPM [facility] Last Admin: 01/26/22 17:37 Dose: 75 mg Morphine Sulfate (Morphine 4 Mg/1 Ml Inj) 2 mg IV Q14H PRN PRN Reason: Pain , Severe (7-10) Last Admin: 01/25/22 03:12 Dose: 2 mg Nifedipine (Nifedipine Xl 60 Mg Tab) 60 mg PO QDAY [facility] Last Admin: 01/27/22 10:16 Dose: 60 mg Nitroglycerin (Nitroglycerin 0.4 Mg Tab Subl) 0.4 mg SL Q5M PRN PRN Reason: Chest Pain Ondansetron HCl (Ondansetron 4 Mg/2 Ml Inj) 4 mg IV Q8H PRN PRN Reason: Nausea And Vomiting Oxycodone/Acetaminophen (Oxycodone /Acetaminophen 5-325mg Tab) 1 tab PO Q6H PRN PRN Reason: Pain, Moderate (4-6) Last Admin: 01/27/22 10:18 Dose: 1 tab Pantoprazole Sodium (Pantoprazole 20 Mg Tab) 20 mg PO QDAC [facility] Last Admin: 01/27/22 08:29 Dose: 20 mg Sodium Chloride (Sodium Chloride 0.9% 10 Ml Flush Syringe) 10 ml IV BID [facility] Last Admin: 01/27/22 10:16 Dose: 10 ml Sodium Chloride (Sodium Chloride 0.9% 10 Ml Flush Syringe) 10 ml IV PRN PRN PRN Reason: LINE FLUSH Sucralfate (Sucralfate 1 Gm Tab) 1 gm PO TID [facility] Last Admin: 01/27/22 08:29 Dose: 1 gm Exam - Constitutional Vitals: Last Vital Signs Temp 98.5 F 01/27/22 04:26 Pulse 59 L 01/27/22 05:37 Resp 18 01/27/22 04:26 BP 141/50 01/27/22 05:37 Pulse Ox 95 01/27/22 08:35 Results - Labs lab Results: Laboratory Results - last 24 hr 01/26/22 01/26/22 01/26/22 07:28 15:48 22:10 WBC RBC Hgb Hct MCV MCH MCHC RDW Plt Count Add Manual Diff Total Counted Seg Neuts % (Manual) Band Neutrophils % Lymphocytes % (Manual) Reactive Lymphs % (Man) Monocytes % (Manual) Eosinophils % (Manual) Basophils % (Manual) Metamyelocytes % Myelocytes % Promyelocytes % Blast Cells % Nucleated RBC % Seg Neutrophils # Man Band Neutrophils # Lymphocytes # (Manual) Abs React Lymphs (Man) Monocytes # (Manual) Eosinophils # (Manual) Basophils # (Manual) Metamyelocytes # Myelocytes # Promyelocytes # Blast Cells # WBC Morphology Hypersegmented Neuts Hyposegmented Neuts Hypogranular Neuts Smudge Cells Toxic Granulation Toxic Vacuolation Dohle Bodies Pelger-Huet Anomaly Deep Rods Platelet Estimate Clumped Platelets Plt Clumps, EDTA Large Platelets Giant Platelets Platelet Satelliting Plt Morphology Comment RBC Morphology Dimorphic RBCs Polychromasia Hypochromasia Poikilocytosis Anisocytosis Microcytosis Macrocytosis Spherocytes Pappenheimer Bodies Sickle Cells Target Cells Tear Drop Cells Ovalocytes Helmet Cells Singh-[place] Bodies [place] Rings Christopher Cells Bite Cells Crenated Cell Elliptocytes Acanthocytes (Spur) Rouleaux Hemoglobin C Crystals Schistocytes Malaria parasites Jeremías Bodies Hem Pathologist Commnt Sodium Potassium Chloride Carbon Dioxide Anion Gap BUN Creatinine Estimated GFR BUN/Creatinine Ratio Glucose POC Glucose 101 152 H 143 H Calcium 01/27/22 01/27/22 01/27/22 04:19 04:19 07:26 WBC 1.7 L* RBC 2.25 L Hgb 7.0 L Hct 20.4 L MCV 91 MCH 31 MCHC 34 RDW 15.5 H Plt Count 96 L Add Manual Diff Complete Total Counted 50 Seg Neuts % (Manual) 66.0 Band Neutrophils % 0 Lymphocytes % (Manual) 28.0 Reactive Lymphs % (Man) 0 Monocytes % (Manual) 4.0 Eosinophils % (Manual) 0 Basophils % (Manual) 2.0 H Metamyelocytes % 0 Myelocytes % 0 Promyelocytes % 0 Blast Cells % 0 Nucleated RBC % Not Reportable Seg Neutrophils # Man 1.1 L Band Neutrophils # 0.0 Lymphocytes # (Manual) 0.5 L Abs React Lymphs (Man) 0.0 Monocytes # (Manual) 0.1 Eosinophils # (Manual) 0.0 Basophils # (Manual) 0.0 Metamyelocytes # 0.0 Myelocytes # 0.0 Promyelocytes # 0.0 Blast Cells # 0.0 WBC Morphology Not Reportable Hypersegmented Neuts Not Reportable Hyposegmented Neuts Not Reportable Hypogranular Neuts Not Reportable Smudge Cells Not Reportable Toxic Granulation Not Reportable Toxic Vacuolation Not Reportable Dohle Bodies Not Reportable Pelger-Huet Anomaly Not Reportable Deep Rods Not Reportable Platelet Estimate Consistent w auto Clumped Platelets Not Reportable Plt Clumps, EDTA Not Reportable Large Platelets Not Reportable Giant Platelets Not Reportable Platelet Satelliting Not Reportable Plt Morphology Comment Not Reportable RBC Morphology Not Reportable Dimorphic RBCs Not Reportable Polychromasia Not Reportable Hypochromasia Not Reportable Poikilocytosis Not Reportable Anisocytosis Not Reportable Microcytosis Not Reportable Macrocytosis Not Reportable Spherocytes Not Reportable Pappenheimer Bodies Not Reportable Sickle Cells Not Reportable Target Cells Not Reportable Tear Drop Cells Not Reportable Ovalocytes Not Reportable Helmet Cells Not Reportable Singh-[place] Bodies Not Reportable [place] Rings Not Reportable [place] Cells Not Reportable Bite Cells Not Reportable Crenated Cell Not Reportable Elliptocytes Not Reportable Acanthocytes (Spur) Not Reportable Rouleaux Not Reportable Hemoglobin C Crystals Not Reportable Schistocytes Not Reportable Malaria parasites Not Reportable Jeremías Bodies Not Reportable Hem Pathologist Commnt No Sodium 137 Potassium 4.6 Chloride 96.8 L Carbon Dioxide 29 Anion Gap 16 BUN 52 H Creatinine 7.9 H Estimated GFR 7 BUN/Creatinine Ratio 7 Glucose 128 H POC Glucose 117 H Calcium 8.8
--- NOTE | 2022-01-27 11:19 | Progress Note ---
Assessment and Plan Pt is a 46-year-old female with a hx of CAD (severe diag dz not amenable to intervention on [facility] 12/04/2021), ESRD on HD, HFrEF/CMP (EF 35-40%, primarily non- ischemic), valvular heart disease, SVT, HTN, DM2, and morbid obesity/?OHS (uses 3L home O2) who presented with complaints of chest pain. Pt reports sharp mid- sternal pain that started while she was on her way to HD yesterday. Non- radiating. Atypical Chest Pain non stemiType 2 TN CAD (severe diag dz not amenable to intervention on [facility] 12/04/2021) Chronic Respiratory Failure (uses 3L home O2) Acute on Chronic HFrEF CMP (EF 35-40%, primarily non-ischemic per [facility] Cardiology) VHD (Mod MR / Mod-Severe TR / Mild-Mod RI) ESRD on HD Anemia Pancytopenia HTN DM2 Morbid Obesity ?OHS/MATT H/o SVT (12/01/2021, resolved s/p adenosine) Medical Non-Compliance Cardiac Catheterization 12/04/2021 1. Left main artery: 0 % 2. Proximal left anterior descending artery: 30% 3. Mid-Distal left anterior descending artery: 40% 1. Diagonal artery: Diffusely diseased artery with serial 80 to 90% lesion in segment, appears occluded with some left to left collaterals. Does not appear to be a good target for intervention. 4. Circumflex/obtuse marginal artery: Very large territory, 10-20% 5. Right coronary artery: Small, nondominant, 20%. There appears to be a heavily calcified lesion within the conus branch. 6. Coronary dominance: _Left_ 7. Left ventricle ejection fraction: 30 % 8. Left ventricle wall motion: Anterolateral akinesis with global hypokinesis 9. LVEDP: 20 mmHg 10. LV-Aorta gradient: 0 mmHg Summary: Severe diagonal artery disease as detailed above, not a good candidate for intervention. Would recommend treating this conservatively. Echocardiogram 12/01/2021- LVEF 35 - 40%. LV systolic function is moderately decreased. Mild concentric LV hypertrophy. Hypokinetic basal anterolateral, mid anterior, mid anterolateral, apical anterior, apical lateral, and apex LV wall. Systolic septal flattening consistent with RV pressure overload. RV systolic function is mildly reduced. Unable to assess LV diastolic function. RV moderately dilated. RV systolic function is moderately reduced. LA moderately dilated. Unclear echo dense structure noted on the roof of LA. Atrial septal bowing noted into the LA suggestive of right sided pressure increase. Moderate mitral regurgitation. Moderate to severe tricuspid regurgitation. Mild to moderate pulmonary regurgitation. Compared to previous echo, there are significant changes. Plan: Continue atorvastatin 40 mg p.o. nightly, aspirin, Plavix, hydralazine 50 mg p.o. 3 times daily, Imdur 30 mg p.o. daily, metoprolol XL 75 mg p.o. daily, nifedipine 60 mg p.o. daily Atypical chest pain reproducible. Troponins elevation due to NSTEMI type 2 in setting of ESRD Not on ABEBE or ARB due to renal function Cardiac status otherwise stable for discharge Patient should follow up with their primary cardiologists or patient may follow up with our group,[facility], 1-2 weeks after discharge. Patient seen in conjunction with Dr. Singh who agrees with this plan of care - Patient Problems (1) ESRD needing dialysis Current Visit: Yes Status: Acute (2) End stage renal disease Current Visit: Yes Status: Acute (3) Pancytopenia Current Visit: Yes Status: Acute (4) Anemia Current Visit: Yes Status: Chronic (5) Coronary artery disease Current Visit: Yes Status: Chronic Qualifiers: Coronary Disease-Associated Artery/Lesion type: [place] artery [place] vs. transplanted heart: [place] heart (6) End stage renal disease on dialysis Current Visit: Yes Status: Chronic (7) Hypertension Current Visit: Yes Status: Chronic Qualifiers: Hypertension type: primary hypertension Qualified Code(s): I10 - Essential (primary) hypertension (8) Medical non-compliance Current Visit: Yes Status: Chronic (9) NICM (nonischemic cardiomyopathy) Current Visit: Yes Status: Chronic Subjective Date of service: 01/27/22 Principal diagnosis: cp,nstemi type 2 Interval history: Patient resting in bed in no acute distress Sinus 60s on monitor Objective Vital Signs Temp Pulse Resp BP BP Pulse Ox Pulse Ox 01/27/22 08:35 95 01/27/22 05:37 59 L 141/50 01/27/22 04:26 98.5 F 59 L 18 141/50 97 01/26/22 22:29 98.8 F 60 140/42 01/26/22 22:27 60 20 140/42 98 01/26/22 20:48 98 01/26/22 15:45 98.3 F 63 18 151/53 97 01/26/22 14:00 96 01/26/22 13:45 98.7 F 62 20 187/87 99 01/26/22 13:00 61 186/91 01/26/22 12:45 61 186/83 01/26/22 12:30 61 178/82 01/26/22 12:15 63 175/95 01/26/22 12:05 61 176/90 01/26/22 12:00 61 196/89 01/26/22 11:45 63 181/87 01/26/22 11:31 98.6 F 56 L 20 157/64 99 01/26/22 11:30 60 181/64 - Physical Examination General: No Apparent Distress HEENT: Positive: Normocephaly, Other (blind R eye) Neck: Positive: neck supple, trachea midline. Negative: JVD/HJR Cardiac: Positive: Reg Rate and Rhythm Lungs: Positive: Normal Breath Sounds Neuro: Positive: Grossly Intact Abdomen: Positive: Soft. Negative: Tender Skin: Negative: Rash, Wound Musculoskeletal: No Pain Extremities: Present: upper extr. pulses, edema (BLE), warm - Labs and Meds CBC 01/27/22 Range/Units 04:19 WBC 1.7 L* (4.5-11.0) K/mm3 RBC 2.25 L (3.65-5.03) M/mm3 Hgb 7.0 L (10.1-14.3) gm/dl Hct 20.4 L (30.3-42.9) % Plt Count 96 L (140-440) K/mm3 Comprehensive Metabolic Panel 01/27/22 Range/Units 04:19 Sodium 137 (137-145) mmol/L Potassium 4.6 (3.6-5.0) mmol/L Chloride 96.8 L (98-107) mmol/L Carbon Dioxide 29 (22-30) mmol/L BUN 52 H (7-17) mg/dL Creatinine 7.9 H (0.6-1.2) mg/dL Glucose 128 H (65-100) mg/dL Calcium 8.8 (8.4-10.2) mg/dL - Imaging and Cardiology EKG: report reviewed, image reviewed Echo: report reviewed Cardiac cath: report reviewed - Telemetry EKG Rhythm: Sinus Rhythm - EKG Sinus rhythms and dysrhythmias: sinus rhythm Chamber hypertrophy or enlargement: left ventricular hypertro Repolarization changes or abnormalities: nonspecific abnormality, ST segment, and/or T wave
[2022-01-27] MEDS: METOPROLOL SUCCINATE XL 25 MG TAB PO SCH (17:30)
[2022-01-27] MEDS ORDERED: SODIUM FERRIC GLUCON/SUCRO 125 MG in SODIUM CHLORIDE 0.9% 100 ML IV ONE (17:31)
--- NOTE | 2022-01-27 17:40 | Progress Note ---
Assessment and Plan Assessment and plan: 46 YO Female with ESRD on HD(T,R,Sa), Systolic CHF(EF35%), Obesity, HTN, DM, HLD, Metabolic Syndrome, Noncompliance, CAD on DAPT presents to ED for evaluation of a sudden onset of chest tightness while preparing to go to her routine dialysis center for dialysis on 01/24/2022. Patient also acknowledged de creased exercise tolerance, noncompliance with low-sodium diet, orthopnea, paroxysmal nocturnal dyspnea, as well as 8 pound 8 weight gain over the past 1 week. Patient found to have a systolic blood pressure in the 160s, end-stage renal disease complicated by fluid overload, pulmonary edema, as well as clinical symptoms consistent with CHF decompensation. Hospital course: 01/25/2022. Patient complaining of right upper and lower abdominal pain currently. We will check CT scan of the abdomen and pelvis for further evaluation. We will consult nephrology for further evaluation. Patient to resume hemodialysis per nephrology recommendations. Cardiology consultation. 01/26/2022. Patient continues to complain of right upper and lower quadrant abdominal pain. Follow-up CT scan of the abdomen pelvis. Recheck CBC and transfuse for hemoglobin less than 7.0. Continue aspirin, Plavix, Lipitor, Toprol, Imdur and hydralazine. Not on ACEI/ARB/ARNI due to renal fxn and h/o non-compliance with HD. 01/27/2022. Patient underwent hemodialysis today without any issues. Cardiology has signed off. Heme/oncology was consulted for unexplained pancytopenia. Pending further work-up. Ordering IV Ferrlecit 125 mg x 1. We will reach out to heme-onc to determine if patient can undergo bone marrow biopsy in outpatient setting. #Acute on chronic diastolic heart failureresolved #Pulmonary edema Stress test May 2017 was negative for ischemia and an EF of 55%. Cardiology consulted; appreciate recs IV diuresis, strict I's and O's, 1.5 L/day in regards to fluid restriction, continue medical management #Costochondritis Continue analgesics as needed. #Hypertension #Nonischemic cardiomyopathy - home medications: Plavix 75 mg daily, atorvastatin 40 mg daily, nifedipine 60 mg daily, metoprolol succinate 75 mg every afternoon, Imdur 30 mg daily - current medications: P.o. hydralazine 50 mg every 8 hours, Plavix 75 mg daily, atorvastatin 40 mg daily, nifedipine 60 mg daily, metoprolol succinate 75 mg every afternoon, Imdur 30 mg daily - SBP goal <160 and DBP goal <90 while inpatient - continue to monitor #NSTEMI type IIresolved #Chronic hypoxic respiratory failure Requires 3 L nasal cannula at baseline #ESRD on hemodialysis -Outpatient schedule: TTS -HD center: Unknown -Nephrology consulted; appreciate recs. -Renally dose medications and avoid nephrotoxic drugs. Renal diet. #Pancytopenia #Anemia of chronic disease Hemoglobin 7.0, WBC 1.7, platelets 96 Transfuse if hemoglobin <7 or patient becomes symptomatic. Ordering IV Ferrlecit 125 mg x1. Hematology/oncology consulted; appreciate recs. Pending further work-up. #Obesity hypoventilation syndrome #Morbid obesity #Weight loss counseling #Exercise counseling - BMI 42.5 - Counseled patient on the importance of weight loss, incorporating exercise, and dietary changes (lean meats, fresh fruits and vegetables, and water intake). Patient expresses understanding. - Time: +15 min #Advanced care planning -Disease education conducted, care plan discussed, diagnoses discussed, prognosis discussed, and patient acknowledges understanding with care plan -Time: +30 min Disposition Plan: Continue medical management Total Time Spent with Patient (Minutes): 45 minutes History Interval history: No acute events overnight. Hospitalist Physical - Constitutional Vitals: Temp Pulse Resp BP Pulse Ox 98.0 F 56 L 18 141/57 92 01/27/22 11:34 01/27/22 11:34 01/27/22 11:34 01/27/22 11:34 01/27/22 11:34 General appearance: Present: no acute distress, well-nourished, obese - EENT Eyes: Present: PERRL, EOM intact ENT: hearing intact, clear oral mucosa - Neck Neck: Present: supple, normal ROM - Respiratory Respiratory effort: normal Respiratory: bilateral: diminished (On room air) - Cardiovascular Rhythm: regular Heart Sounds: Present: S1 & S2 - Extremities Extremities: no ischemia, pulses intact, pulses symmetrical, No edema, normal temperature, normal color Peripheral Pulses: within normal limits - Abdominal General gastrointestinal: soft, non-tender, non-distended, normal bowel sounds - Integumentary Integumentary: Present: clear, warm, dry - Psychiatric Psychiatric: appropriate mood/affect, cooperative - Neurologic Neurologic: CNII-XII intact - Allied Health Allied health notes reviewed: nursing HEART Score - HEART Score EKG: Normal Age: 45-65 Risk factors: 1-2 risk factors Troponin: Troponin T 0.127 ng/mL (0.00-0.029) H* 01/25/22 22:59 Troponin: < normal limit - Critical Actions Critical Actions: 0-3 pts:0.9-1.7%risk of adverse cardiac event.Candidate for discharge Results - Labs CBC & Chem 7: 01/27/22 04:19 01/27/22 04:19 Labs: Laboratory Last Values WBC 1.7 K/mm3 (4.5-11.0) L* 01/27/22 04:19 RBC 2.25 M/mm3 (3.65-5.03) L 01/27/22 04:19 Hgb 7.0 gm/dl (10.1-14.3) L 01/27/22 04:19 Hct 20.4 % (30.3-42.9) L 01/27/22 04:19 MCV 91 fl (79-97) 01/27/22 04:19 MCH 31 pg (28-32) 01/27/22 04:19 MCHC 34 % (30-34) 01/27/22 04:19 RDW 15.5 % (13.2-15.2) H 01/27/22 04:19 Plt Count 96 K/mm3 (140-440) L 01/27/22 04:19 Add Manual Diff Complete 01/27/22 04:19 Total Counted 50 01/27/22 04:19 Seg Neuts % (Manual) 66.0 % (40.0-70.0) 01/27/22 04:19 Band Neutrophils % 0 % 01/27/22 04:19 Lymphocytes % (Manual) 28.0 % (13.4-35.0) 01/27/22 04:19 Reactive Lymphs % (Man) 0 % 01/27/22 04:19 Monocytes % (Manual) 4.0 % (0.0-7.3) 01/27/22 04:19 Eosinophils % (Manual) 0 % (0.0-4.3) 01/27/22 04:19 Basophils % (Manual) 2.0 % (0.0-1.8) H 01/27/22 04:19 Metamyelocytes % 0 % 01/27/22 04:19 Myelocytes % 0 % 01/27/22 04:19 Promyelocytes % 0 % 01/27/22 04:19 Blast Cells % 0 % 01/27/22 04:19 Nucleated RBC % Not Reportable 01/27/22 04:19 Seg Neutrophils # Man 1.1 K/mm3 (1.8-7.7) L 01/27/22 04:19 Band Neutrophils # 0.0 K/mm3 01/27/22 04:19 Lymphocytes # (Manual) 0.5 K/mm3 (1.2-5.4) L 01/27/22 04:19 Abs React Lymphs (Man) 0.0 K/mm3 01/27/22 04:19 Monocytes # (Manual) 0.1 K/mm3 (0.0-0.8) 01/27/22 04:19 Eosinophils # (Manual) 0.0 K/mm3 (0.0-0.4) 01/27/22 04:19 Basophils # (Manual) 0.0 K/mm3 (0.0-0.1) 01/27/22 04:19 Metamyelocytes # 0.0 K/mm3 01/27/22 04:19 Myelocytes # 0.0 K/mm3 01/27/22 04:19 Promyelocytes # 0.0 K/mm3 01/27/22 04:19 Blast Cells # 0.0 K/mm3 01/27/22 04:19 WBC Morphology Not Reportable 01/27/22 04:19 Hypersegmented Neuts Not Reportable 01/27/22 04:19 Hyposegmented Neuts Not Reportable 01/27/22 04:19 Hypogranular Neuts Not Reportable 01/27/22 04:19 Smudge Cells Not Reportable 01/27/22 04:19 Toxic Granulation Not Reportable 01/27/22 04:19 Toxic Vacuolation Not Reportable 01/27/22 04:19 Dohle Bodies Not Reportable 01/27/22 04:19 Pelger-Huet Anomaly Not Reportable 01/27/22 04:19 Deep Rods Not Reportable 01/27/22 04:19 Platelet Estimate Consistent w auto 01/27/22 04:19 Clumped Platelets Not Reportable 01/27/22 04:19 Plt Clumps, EDTA Not Reportable 01/27/22 04:19 Large Platelets Not Reportable 01/27/22 04:19 Giant Platelets Not Reportable 01/27/22 04:19 Platelet Satelliting Not Reportable 01/27/22 04:19 Plt Morphology Comment Not Reportable 01/27/22 04:19 RBC Morphology Not Reportable 01/27/22 04:19 Dimorphic RBCs Not Reportable 01/27/22 04:19 Polychromasia Not Reportable 01/27/22 04:19 Hypochromasia Not Reportable 01/27/22 04:19 Poikilocytosis Not Reportable 01/27/22 04:19 Anisocytosis Not Reportable 01/27/22 04:19 Microcytosis Not Reportable 01/27/22 04:19 Macrocytosis Not Reportable 01/27/22 04:19 Spherocytes Not Reportable 01/27/22 04:19 Pappenheimer Bodies Not Reportable 01/27/22 04:19 Sickle Cells Not Reportable 01/27/22 04:19 Target Cells Not Reportable 01/27/22 04:19 Tear Drop Cells Not Reportable 01/27/22 04:19 Ovalocytes Not Reportable 01/27/22 04:19 Helmet Cells Not Reportable 01/27/22 04:19 [place] Bodies Not Reportable 01/27/22 04:19 [place] Rings Not Reportable 01/27/22 04:19 [place] Cells Not Reportable 01/27/22 04:19 Bite Cells Not Reportable 01/27/22 04:19 Crenated Cell Not Reportable 01/27/22 04:19 Elliptocytes Not Reportable 01/27/22 04:19 Acanthocytes (Spur) Not Reportable 01/27/22 04:19 Rouleaux Not Reportable 01/27/22 04:19 Hemoglobin C Crystals Not Reportable 01/27/22 04:19 Schistocytes Not Reportable 01/27/22 04:19 Malaria parasites Not Reportable 01/27/22 04:19 Percent Retic 1.29 % (0.78-2.58) 01/27/22 04:19 Jeremías Bodies Not Reportable 01/27/22 04:19 Hem Pathologist Commnt No 01/27/22 04:19 PT 13.4 Sec. (12.2-14.9) 01/24/22 14:15 INR 0.92 (0.87-1.13) 01/24/22 14:15 Sodium 137 mmol/L (137-145) 01/27/22 04:19 Potassium 4.6 mmol/L (3.6-5.0) 01/27/22 04:19 Chloride 96.8 mmol/L (98-107) L 01/27/22 04:19 Carbon Dioxide 29 mmol/L (22-30) 01/27/22 04:19 Anion Gap 16 mmol/L 01/27/22 04:19 BUN 52 mg/dL (7-17) H 01/27/22 04:19 Creatinine 7.9 mg/dL (0.6-1.2) H 01/27/22 04:19 Estimated GFR 7 ml/min 01/27/22 04:19 BUN/Creatinine Ratio 7 % 01/27/22 04:19 Glucose 128 mg/dL (65-100) H 01/27/22 04:19 POC Glucose 117 mg/dL (70-105) H 01/27/22 07:26 Calcium 8.8 mg/dL (8.4-10.2) 01/27/22 04:19 Total Bilirubin 0.60 mg/dL (0.1-1.2) 01/24/22 14:15 AST 18 units/L (5-40) 01/24/22 14:15 ALT 20 units/L (7-56) 01/24/22 14:15 Alkaline Phosphatase 83 units/L (35-129) 01/24/22 14:15 Lactate Dehydrogenase 179 units/L (91-180) 01/27/22 10:59 Troponin T 0.127 ng/mL (0.00-0.029) H* 01/25/22 22:59 C-Reactive Protein 0.30 mg/dL (0.00-1.30) 01/24/22 14:15 NT-Pro-B Natriuret Pep > 20788 pg/mL (0-450) H 01/24/22 14:15 Total Protein 6.8 g/dL (6.3-8.2) 01/24/22 14:15 Albumin 4.3 g/dL (3.9-5) 01/24/22 14:15 Albumin/Globulin Ratio 1.7 % 01/24/22 14:15 Lipase 25 units/L (13-60) 01/24/22 14:15 Nasal Screen MRSA (PCR) Negative (Negative) 01/25/22 Unknown HIV 1&2 Antibody Rapid Non react (Non React) 01/27/22 04:19 HIV P24 Antigen Non react (Non React) 01/27/22 04:19 [place]/IV: Voiding Method External Female Catheter Active Medications - Current Medications Current Medications: Generic Name Dose Route Start Last Admin Trade Name Freq PRN Reason Stop Dose Admin Acetaminophen 650 mg 01/24/22 17:19 Acetaminophen 325 Mg Tab PO Q4H PRN Pain MILD(1-3)/Fever >100.5/CARDENAS Albuterol 2.5 mg 01/24/22 17:19 Albuterol 2.5 Mg/3 Ml Nebu IH Q4HRT PRN Shortness Of Breath Aspirin 325 mg 01/25/22 10:00 01/27/22 10:16 Aspirin Ec 325 Mg Tab PO 325 mg QDAY ANTHONY Administration Atorvastatin Calcium 40 mg 01/24/22 22:00 01/26/22 22:28 Atorvastatin 40 Mg Tab PO 40 mg QHS ANTHONY Administration Clopidogrel Bisulfate 75 mg 01/25/22 10:00 01/27/22 10:16 Clopidogrel 75 Mg Tab PO 75 mg QDAY ANTHONY Administration Epoetin Guillermo-epbx 20,000 unit 01/27/22 09:21 Epoetin Guillermo-Epbx 20,000 Unit/1 Ml Vial IV THAI PRN hemodialysis Hydralazine HCl 50 mg 01/24/22 22:00 01/27/22 14:57 Hydralazine 25 Mg Tab PO 50 mg Q8HR ANTHONY Administration Sodium Chloride 100 mls @ 999 mls/hr 01/26/22 02:16 Nacl 0.9% IV THAI PRN Hypotension Ferric Sodium Gluconate 110 mls @ 100 mls/hr 01/27/22 17:31 Complex 125 mg/ Sodium IV 01/27/22 18:36 Chloride ONCE ONE Insulin Human Lispro 0 unit 01/24/22 22:00 01/27/22 11:54 Insulin Lispro 100 Unit/Ml SUB-Q Not Given ACHS [facility] Protocol Isosorbide Mononitrate 30 mg 01/25/22 10:00 01/27/22 10:16 Isosorbide Mononitrate Er 30 Mg Tab PO 30 mg DAILY ANTHONY Administration Metoprolol Succinate 75 mg 01/24/22 18:00 01/26/22 17:37 Metoprolol Succinate Xl 25 Mg Tab PO 75 mg QPM ANTHONY Administration Morphine Sulfate 2 mg 01/24/22 17:19 01/25/22 03:12 Morphine 4 Mg/1 Ml Inj IV 2 mg Q14H PRN Administration Pain , Severe (7-10) Nifedipine 60 mg 01/25/22 10:00 01/27/22 10:16 Nifedipine Xl 60 Mg Tab PO 60 mg QDAY ANTHONY Administration Nitroglycerin 0.4 mg 01/24/22 17:21 Nitroglycerin 0.4 Mg Tab Subl SL Q5M PRN Chest Pain Ondansetron HCl 4 mg 01/24/22 17:19 Ondansetron 4 Mg/2 Ml Inj IV Q8H PRN Nausea And Vomiting Oxycodone/Acetaminophen 1 tab 01/24/22 17:19 01/27/22 15:30 Oxycodone /Acetaminophen 5-325mg Tab PO 1 tab Q6H PRN Administration Pain, Moderate (4-6) Pantoprazole Sodium 20 mg 01/26/22 14:00 01/27/22 08:29 Pantoprazole 20 Mg Tab PO 20 mg QDAC ANTHONY Administration Sodium Chloride 10 ml 01/24/22 22:00 01/27/22 10:16 Sodium Chloride 0.9% 10 Ml Flush Syringe IV 10 ml BID ANTHONY Administration Sodium Chloride 10 ml 01/24/22 17:19 Sodium Chloride 0.9% 10 Ml Flush Syringe IV PRN PRN LINE FLUSH Sucralfate 1 gm 01/26/22 14:00 01/27/22 14:57 Sucralfate 1 Gm Tab PO 1 gm TID ANTHONY Administration Nutrition/Malnutrition Assess - Dietary Evaluation Nutrition/Malnutrition Findings: Nutrition Notes Start: 01/25/22 13:59 Freq: Status: Active Protocol: Document 01/25/22 13:59 TEAGAN (Rec: 01/25/22 14:28 TEAGAN [id number]) Nutrition Notes Need for 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 Current Diet Renal Diet (since D 01/24), D Suppl (since D 01/25). Labs/Tests 01/25: BUN 66, Crea 8.9, Glu 198, Ca 8.3. Pertinent Medications 01/25: Humalog 2U, others nutritionally unremarkable. Height 5 ft 3 in Weight 108.862 kg [place] Body Weight (kg) 52.27 BMI 42.5 Intake Prior to Admission Good Weight change and time frame Pt denies having loss body weight [employer]. Weight Status Morbidly Obese Subjective/Other Information RD consult for skin risk assessment. Pt's PO intake of meals has been Poor (25-50%) but well tolerated, according to ADL notes. Iwill prescribe dietary supplements to compensate for poor or insufficient PO intake of meals during LOS. Pt is on Room Air, O2 saturation @ 95%, according to Physical Assessment History notes. Pt states having gain 8 lb body weight during the last week, according to History & Physical notes. Pt complains of RUQ & RLQ abdominal pain, according to History & Physical notes. Pt show no signs of concern for skin risk at the time, according to Physical Assessment History notes. Percent of energy/protein needs met: Prescribed Renal Diet provides for energy/protein needs (2, 072 Kcal/77 g) during LOS; additionally, Dietary Supplements will compensate for possible poor or insufficient PO intake of meals with 850 Kcal and 57 g of protein. Burn Absent Trauma Absent GI Symptoms Other Food Allergy No Skin Integrity/Comment Assessment WNL. Current % PO Poor (25-49%) Minimum of two criteria No Fluid Accumulation Moderate to Severe (severe) Reduced Speech Language Therapist Strength N/A (non-severe) Protein-Calorie Malnutrition N\A #1 Nutrition Diagnosis Predicted suboptimal energy intake Etiology Possibly secondary to missed HD, CHF. As Evidenced by Signs and Symptoms Pt's PO intake of meals has been Poor (25-50%) but well tolerated, according to ADL notes. Is patient on ventilator? No Is Patient Ambulatory and/or Out of Bed Yes REE-([place]-St. Jeor-ambulatory/OOB) [ 2207.075 NUTR.[id number]] Kcal/Kg value to use for calculation 12 Approximate Energy Requirements Using 1306 kcal/Kg Calculation Used for Recommendations Kcal/kg Additional Notes Protein: >1.2 g/Kg AdjBW; >97 g/day. Fluids: 1 ml/Kcal, or as per MD. Nutrition Intervention Change Diet Order: Continue Renal Diet as tolerated. Add Supplement/Snack (indicate name/kcal Start 8 fl oz Nepro w/ /protein ) CARBSTEADY: BID. Provides kCal: 850 Provides Protein (gm) 38 Goal #1 Compensate, through dietary supplementation, for possible poor or insufficient PO intake of meals during LOS. Goal #2 Adjust the dietary intervention to better serve Pt's needs and clinical conditions during LOS. Follow-Up By: 01/30/22 Additional Comments Continue monitoring food tolerance, %PO intake of meals , dietary supplements, and BM.
[2022-01-28] MEDS: hydrALAZINE 25 MG TAB PO SCH ×3 (05:39→23:12)
[2022-01-28] MEDS: oxyCODONE /ACETAMINOPHEN 5-325MG TAB PO PRN ×3 (05:42→21:34)
--- NOTE | 2022-01-28 08:42 | Progress Note ---
Subjective Date of service: 01/28/22 Principal diagnosis: cp,nstemi type 2 Interval history: Assessment and plan #End-stage kidney disease: Patient will continue to receive hemodialysis treatment 3 times a week on Wednesday schedule Dialysis nurse to monitor blood pressure and heart rate closely while ultrafiltration is done to make sure patient stays stable, Outpatient dialysis facility: [facility] dialysis facility #Access: Needs to be monitored during dialysis Will need follow-up with vascular in the outpatient setting #Chest pain patient also does have GERD symptoms started her on Protonix as well as Carafate Reviewed cardiology notes #Hypertension and volume: Stable at this time #Anemia in end-stage kidney disease: Monitor hemoglobin and hematocrit, started erythropoietin, PRBCs as needed Bone mineral disorder and secondary hyperparathyroidism; Monitor phosphorus binders as necessary goal phosphorus less than 5-1/2 #Diet and nutrition: Protein supplementation as well as multivitamins If there is any further question in regards to this patient renal care please contact me in [phone] If there are any renal related issues in regards to this patient please feel free to reach out without any hesitation at [phone] We'll continue to follow and make recommendation for renal standpoint. SUbjective: Patient was seen today for follow-up of multiple renal related issues No complaints of any chest pain pressure or shortness of breath Interdisciplinary notes that also reviewed Events of 24 hours vitals labs intake output medications were reviewed Past medical history: Reviewed Family history: Reviewed Social history: Reviewed Allergies: Reviewed Physical examination: Vitals: Reviewed HEENT: No pallor or icterus oral mucosa moist Neck: Supple no JVD no thyromegaly Chest: Bilateral clear to auscultation anteriorly Heart: Regular rate and rhythm S1-S2 heard no S3-S4 Abdomen: Soft nontender no voluntary guarding rigidity rebound Extremity: Dry skin less than 1+ peripheral edema Psychiatric: No evidence of agitation and aggression noted Dermatology: No petechial rashes Labs and x-rays: Reviewed from today Objective - Vital Signs Vital signs: Vital Signs - 12hr 01/27/22 01/27/22 01/27/22 20:50 21:40 21:54 Temperature 97.9 F Pulse Rate 58 L 58 L Respiratory 18 Rate Blood Pressure 139/38 Blood Pressure 139/38 [Right] O2 Sat by Pulse 92 97 Oximetry 01/28/22 01/28/22 02:00 05:39 Temperature Pulse Rate 59 L Respiratory Rate Blood Pressure 149/94 Blood Pressure [Right] O2 Sat by Pulse 97 Oximetry - Lab 01/27/22 04:19 01/27/22 04:19 Most recent lab results Calcium 8.8 mg/dL (8.4-10.2) 01/27/22 04:19 Medications & Allergies - Medications Allergies/Adverse Reactions: Allergies No Known Allergies Allergy (Verified 01/24/22 12:50) Home Medications: Home Medications Medication Instructions Recorded Confirmed Last Taken Type Aspirin EC [Ecotrin] 325 mg PO QDAY 30 Days #30 tablet 01/21/22 01/26/22 Unknown Rx AtorvaSTATin [Lipitor] 40 mg PO QHS 01/21/22 01/26/22 Unknown History Clopidogrel [Plavix] 75 mg PO QDAY 90 Days #90 tab 01/21/22 01/26/22 Unknown Rx Hydralazine HCl 50 mg PO TID 01/21/22 01/26/22 Unknown History ISOSORBIDE MONOnitrate [Imdur ER] 30 mg PO DAILY 01/21/22 01/26/22 Unknown History Metoprolol Xl [Metoprolol 75 mg PO QPM 01/21/22 01/26/22 Unknown History SUCCINATE ER TAB] NIFEdipine [Nifedipine ER] 60 mg PO QDAY 01/21/22 01/26/22 Unknown History Nitroglycerin [Nitrostat] 0.4 mg SL Q5M PRN 30 Days #30 01/21/22 01/26/22 Unknown Rx tablet Active Medications: Generic Name Dose Route Start Last Admin Trade Name Freq PRN Reason Stop Dose Admin Acetaminophen 650 mg 01/24/22 17:19 Acetaminophen 325 Mg Tab PO Q4H PRN Pain MILD(1-3)/Fever >100.5/CARDENAS Albuterol 2.5 mg 01/24/22 17:19 Albuterol 2.5 Mg/3 Ml Nebu IH Q4HRT PRN Shortness Of Breath Aspirin 325 mg 01/25/22 10:00 09/06/22 10:16 Aspirin Ec 325 Mg Tab PO 325 mg QDAY ANTHONY Administration Atorvastatin Calcium 40 mg 01/24/22 22:00 01/27/22 21:55 Atorvastatin 40 Mg Tab PO 40 mg QHS ANTHONY Administration Clopidogrel Bisulfate 75 mg 01/25/22 10:00 01/27/22 10:16 Clopidogrel 75 Mg Tab PO 75 mg QDAY ANTHONY Administration Epoetin Guillermo-epbx 20,000 unit 01/27/22 09:21 Epoetin Guillermo-Epbx 20,000 Unit/1 Ml Vial IV THAI PRN hemodialysis Hydralazine HCl 50 mg 01/24/22 22:00 01/28/22 05:39 Hydralazine 25 Mg Tab PO 50 mg Q8HR ANTHONY Administration Sodium Chloride 100 mls @ 999 mls/hr 01/26/22 02:16 Nacl 0.9% IV THAI PRN Hypotension Insulin Human Lispro 0 unit 01/24/22 22:00 01/27/22 21:54 Insulin Lispro 100 Unit/Ml SUB-Q 2 unit ACHS ANTHONY Administration Protocol Isosorbide Mononitrate 30 mg 01/25/22 10:00 01/27/22 10:16 Isosorbide Mononitrate Er 30 Mg Tab PO 30 mg DAILY ANTHONY Administration Metoprolol Succinate 75 mg 01/24/22 18:00 01/27/22 17:30 Metoprolol Succinate Xl 25 Mg Tab PO 75 mg QPM ANTHONY Administration Morphine Sulfate 2 mg 01/24/22 17:19 01/25/22 03:12 Morphine 4 Mg/1 Ml Inj IV 2 mg Q14H PRN Administration Pain , Severe (7-10) Nifedipine 60 mg 01/25/22 10:00 01/27/22 10:16 Nifedipine Xl 60 Mg Tab PO 60 mg QDAY ANTHONY Administration Nitroglycerin 0.4 mg 01/24/22 17:21 Nitroglycerin 0.4 Mg Tab Subl SL Q5M PRN Chest Pain Ondansetron HCl 4 mg 01/24/22 17:19 Ondansetron 4 Mg/2 Ml Inj IV Q8H PRN Nausea And Vomiting Oxycodone/Acetaminophen 1 tab 01/24/22 17:19 01/28/22 05:42 Oxycodone /Acetaminophen 5-325mg Tab PO 1 tab Q6H PRN Administration Pain, Moderate (4-6) Pantoprazole Sodium 20 mg 01/26/22 14:00 01/27/22 08:29 Pantoprazole 20 Mg Tab PO 20 mg QDAC ANTHONY Administration Sodium Chloride 10 ml 01/24/22 22:00 01/27/22 21:55 Sodium Chloride 0.9% 10 Ml Flush Syringe IV 10 ml BID ANTHONY Administration Sodium Chloride 10 ml 01/24/22 17:19 Sodium Chloride 0.9% 10 Ml Flush Syringe IV PRN PRN LINE FLUSH Sucralfate 1 gm 01/26/22 14:00 01/27/22 21:53 Sucralfate 1 Gm Tab PO 1 gm TID ANTHONY Administration
[2022-01-28] MEDS: CLOPIDOGREL 75 MG TAB PO SCH (09:03)
[2022-01-28] MEDS: ASPIRIN EC 325 MG TAB PO SCH (09:03)
[2022-01-28] MEDS: SUCRALFATE 1 GM TAB PO SCH ×3 (09:03→21:34)
[2022-01-28] MEDS: PANTOPRAZOLE 20 MG TAB PO SCH (09:03)
[2022-01-28] MEDS: NIFEdipine XL 60 MG TAB PO SCH (09:03)
[2022-01-28] MEDS: INSULIN LISPRO 100 UNIT/ML SUB-Q SCH ×4 (09:07→22:00)
--- NOTE | 2022-01-28 14:44 | Progress Note ---
Assessment and Plan Assessment and plan: 46 YO Female with ESRD on HD(T,R,Sa), Systolic CHF(EF35%), Obesity, HTN, DM, HLD, Metabolic Syndrome, Noncompliance, CAD on DAPT presents to ED for evaluation of a sudden onset of chest tightness while preparing to go to her routine dialysis center for dialysis on 01/24/2022. Patient also acknowledged de creased exercise tolerance, noncompliance with low-sodium diet, orthopnea, paroxysmal nocturnal dyspnea, as well as 8 pound 8 weight gain over the past 1 week. Patient found to have a systolic blood pressure in the 160s, end-stage renal disease complicated by fluid overload, pulmonary edema, as well as clinical symptoms consistent with CHF decompensation. Hospital course: 01/25/2022. Patient complaining of right upper and lower abdominal pain currently. We will check CT scan of the abdomen and pelvis for further evaluation. We will consult nephrology for further evaluation. Patient to resume hemodialysis per nephrology recommendations. Cardiology consultation. 01/26/2022. Patient continues to complain of right upper and lower quadrant abdominal pain. Follow-up CT scan of the abdomen pelvis. Recheck CBC and transfuse for hemoglobin less than 7.0. Continue aspirin, Plavix, Lipitor, Toprol, Imdur and hydralazine. Not on ACEI/ARB/ARNI due to renal fxn and h/o non-compliance with HD. 01/27/2022. Patient underwent hemodialysis today without any issues. Cardiology has signed off. Heme/oncology was consulted for unexplained pancytopenia. Pending further work-up. Ordering IV Ferrlecit 125 mg x 1. We will reach out to heme-onc to determine if patient can undergo bone marrow biopsy in outpatient setting. 01/28/2022. Improvement in abdominal pain. Pending BMP and CBC to determine if the patient can safely be discharged and follow-up with bone marrow biopsy in outpatient setting. #Acute on chronic diastolic heart failureresolved #Pulmonary edema Stress test May 2017 was negative for ischemia and an EF of 55%. Cardiology consulted; appreciate recs IV diuresis, strict I's and O's, 1.5 L/day in regards to fluid restriction, continue medical management #Costochondritis Continue analgesics as needed. #Hypertension #Nonischemic cardiomyopathy - home medications: Plavix 75 mg daily, atorvastatin 40 mg daily, nifedipine 60 mg daily, metoprolol succinate 75 mg every afternoon, Imdur 30 mg daily - current medications: P.o. hydralazine 50 mg every 8 hours, Plavix 75 mg daily, atorvastatin 40 mg daily, nifedipine 60 mg daily, metoprolol succinate 75 mg every afternoon, Imdur 30 mg daily - SBP goal <160 and DBP goal <90 while inpatient - continue to monitor #NSTEMI type IIresolved #Chronic hypoxic respiratory failure Requires 3 L nasal cannula at baseline #ESRD on hemodialysis -Outpatient schedule: TTS -HD center: Unknown -Nephrology consulted; appreciate recs. -Renally dose medications and avoid nephrotoxic drugs. Renal diet. #Pancytopenia #Anemia of chronic disease Hemoglobin 7.0, WBC 1.7, platelets 96 Transfuse if hemoglobin <7 or patient becomes symptomatic. Ordered IV Ferrlecit 125 mg x1. Hematology/oncology consulted; appreciate recs. Pending further work-up. #Obesity hypoventilation syndrome #Morbid obesity #Weight loss counseling #Exercise counseling - BMI 42.5 - Counseled patient on the importance of weight loss, incorporating exercise, and dietary changes (lean meats, fresh fruits and vegetables, and water intake). Patient expresses understanding. - Time: +15 min #Advanced care planning -Disease education conducted, care plan discussed, diagnoses discussed, prognosis discussed, and patient acknowledges understanding with care plan -Time: +30 min #Discharge planning - Patient is pending repeat labs to ensure patient's neutropenia is not acutely worsening. - Case management has been made aware. - Discharge is tentatively 01/29/2022. Disposition Plan: Pending discharge home tomorrow Total Time Spent with Patient (Minutes): 45 min History Interval history: No acute events overnight. Hospitalist Physical - Constitutional Vitals: Temp Pulse Resp BP Pulse Ox 98.6 F 61 18 180/74 97 01/28/22 09:20 01/28/22 11:30 01/28/22 11:45 01/28/22 11:30 01/28/22 12:36 General appearance: Present: no acute distress, well-nourished, obese - EENT Eyes: Present: PERRL, EOM intact ENT: hearing intact, clear oral mucosa - Neck Neck: Present: supple, normal ROM - Respiratory Respiratory effort: normal Respiratory: bilateral: CTA - Cardiovascular Rhythm: regular Heart Sounds: Present: S1 & S2 - Extremities Extremities: no ischemia, pulses intact, pulses symmetrical, No edema, normal temperature, normal color, Full ROM Peripheral Pulses: within normal limits - Abdominal General gastrointestinal: soft, non-tender, non-distended, normal bowel sounds - Integumentary Integumentary: Present: clear, warm, dry - Psychiatric Psychiatric: appropriate mood/affect, cooperative - Neurologic Neurologic: CNII-XII intact, moves all extremities - Allied Health Allied health notes reviewed: nursing HEART Score - HEART Score EKG: Normal Age: 45-65 Risk factors: 1-2 risk factors Troponin: Troponin T 0.127 ng/mL (0.00-0.029) H* 01/25/22 22:59 Troponin: < normal limit - Critical Actions Critical Actions: 0-3 pts:0.9-1.7%risk of adverse cardiac event.Candidate for discharge Results - Labs CBC & Chem 7: 01/27/22 04:19 01/27/22 04:19 Labs: Laboratory Last Values WBC 1.7 K/mm3 (4.5-11.0) L* 01/27/22 04:19 RBC 2.25 M/mm3 (3.65-5.03) L 01/27/22 04:19 Hgb 7.0 gm/dl (10.1-14.3) L 01/27/22 04:19 Hct 20.4 % (30.3-42.9) L 01/27/22 04:19 MCV 91 fl (79-97) 01/27/22 04:19 MCH 31 pg (28-32) 01/27/22 04:19 MCHC 34 % (30-34) 01/27/22 04:19 RDW 15.5 % (13.2-15.2) H 01/27/22 04:19 Plt Count 96 K/mm3 (140-440) L 01/27/22 04:19 Add Manual Diff Complete 01/27/22 04:19 Total Counted 50 01/27/22 04:19 Seg Neuts % (Manual) 66.0 % (40.0-70.0) 01/27/22 04:19 Band Neutrophils % 0 % 01/27/22 04:19 Lymphocytes % (Manual) 28.0 % (13.4-35.0) 01/27/22 04:19 Reactive Lymphs % (Man) 0 % 01/27/22 04:19 Monocytes % (Manual) 4.0 % (0.0-7.3) 01/27/22 04:19 Eosinophils % (Manual) 0 % (0.0-4.3) 01/27/22 04:19 Basophils % (Manual) 2.0 % (0.0-1.8) H 01/27/22 04:19 Metamyelocytes % 0 % 01/27/22 04:19 Myelocytes % 0 % 01/27/22 04:19 Promyelocytes % 0 % 01/27/22 04:19 Blast Cells % 0 % 01/27/22 04:19 Nucleated RBC % Not Reportable 01/27/22 04:19 Seg Neutrophils # Man 1.1 K/mm3 (1.8-7.7) L 01/27/22 04:19 Band Neutrophils # 0.0 K/mm3 01/27/22 04:19 Lymphocytes # (Manual) 0.5 K/mm3 (1.2-5.4) L 01/27/22 04:19 Abs React Lymphs (Man) 0.0 K/mm3 01/27/22 04:19 Monocytes # (Manual) 0.1 K/mm3 (0.0-0.8) 01/27/22 04:19 Eosinophils # (Manual) 0.0 K/mm3 (0.0-0.4) 01/27/22 04:19 Basophils # (Manual) 0.0 K/mm3 (0.0-0.1) 01/27/22 04:19 Metamyelocytes # 0.0 K/mm3 01/27/22 04:19 Myelocytes # 0.0 K/mm3 01/27/22 04:19 Promyelocytes # 0.0 K/mm3 01/27/22 04:19 Blast Cells # 0.0 K/mm3 01/27/22 04:19 WBC Morphology Not Reportable 01/27/22 04:19 Hypersegmented Neuts Not Reportable 01/27/22 04:19 Hyposegmented Neuts Not Reportable 01/27/22 04:19 Hypogranular Neuts Not Reportable 01/27/22 04:19 Smudge Cells Not Reportable 01/27/22 04:19 Toxic Granulation Not Reportable 01/27/22 04:19 Toxic Vacuolation Not Reportable 01/27/22 04:19 Dohle Bodies Not Reportable 01/27/22 04:19 Pelger-Huet Anomaly Not Reportable 01/27/22 04:19 Deep Rods Not Reportable 01/27/22 04:19 Platelet Estimate Consistent w auto 01/27/22 04:19 Clumped Platelets Not Reportable 01/27/22 04:19 Plt Clumps, EDTA Not Reportable 01/27/22 04:19 Large Platelets Not Reportable 01/27/22 04:19 Giant Platelets Not Reportable 01/27/22 04:19 Platelet Satelliting Not Reportable 01/27/22 04:19 Plt Morphology Comment Not Reportable 01/27/22 04:19 RBC Morphology Not Reportable 01/27/22 04:19 Dimorphic RBCs Not Reportable 01/27/22 04:19 Polychromasia Not Reportable 01/27/22 04:19 Hypochromasia Not Reportable 01/27/22 04:19 Poikilocytosis Not Reportable 01/27/22 04:19 Anisocytosis Not Reportable 01/27/22 04:19 Microcytosis Not Reportable 01/27/22 04:19 Macrocytosis Not Reportable 01/27/22 04:19 Spherocytes Not Reportable 01/27/22 04:19 Pappenheimer Bodies Not Reportable 01/27/22 04:19 Sickle Cells Not Reportable 01/27/22 04:19 Target Cells Not Reportable 01/27/22 04:19 Tear Drop Cells Not Reportable 01/27/22 04:19 Ovalocytes Not Reportable 01/27/22 04:19 Helmet Cells Not Reportable 01/27/22 04:[address] [place] Bodies Not Reportable 01/27/22 04:19 [place] Rings Not Reportable 01/27/22 04:19 [place] Cells Not Reportable 01/27/22 04:19 Bite Cells Not Reportable 01/27/22 04:19 Crenated Cell Not Reportable 01/27/22 04:19 Elliptocytes Not Reportable 01/27/22 04:19 Acanthocytes (Spur) Not Reportable 01/27/22 04:19 Rouleaux Not Reportable 01/27/22 04:19 Hemoglobin C Crystals Not Reportable 01/27/22 04:19 Schistocytes Not Reportable 01/27/22 04:19 Malaria parasites Not Reportable 01/27/22 04:19 Percent Retic 1.29 % (0.78-2.58) 01/27/22 04:19 Jeremías Bodies Not Reportable 01/27/22 04:19 Hem Pathologist Commnt No 01/27/22 04:19 PT 13.4 Sec. (12.2-14.9) 01/24/22 14:15 INR 0.92 (0.87-1.13) 01/24/22 14:15 Sodium 137 mmol/L (137-145) 01/27/22 04:19 Potassium 4.6 mmol/L (3.6-5.0) 01/27/22 04:19 Chloride 96.8 mmol/L (98-107) L 01/27/22 04:19 Carbon Dioxide 29 mmol/L (22-30) 01/27/22 04:19 Anion Gap 16 mmol/L 01/27/22 04:19 BUN 52 mg/dL (7-17) H 01/27/22 04:19 Creatinine 7.9 mg/dL (0.6-1.2) H 01/27/22 04:19 Estimated GFR 7 ml/min 01/27/22 04:19 BUN/Creatinine Ratio 7 % 01/27/22 04:19 Glucose 128 mg/dL (65-100) H 01/27/22 04:19 POC Glucose 107 mg/dL (70-105) H 01/28/22 07:38 Calcium 8.8 mg/dL (8.4-10.2) 01/27/22 04:19 Total Bilirubin 0.60 mg/dL (0.1-1.2) 01/24/22 14:15 AST 18 units/L (5-40) 01/24/22 14:15 ALT 20 units/L (7-56) 01/24/22 14:15 Alkaline Phosphatase 83 units/L (35-129) 01/24/22 14:15 Lactate Dehydrogenase 179 units/L (91-180) 01/27/22 10:59 Troponin T 0.127 ng/mL (0.00-0.029) H* 01/25/22 22:59 C-Reactive Protein 0.30 mg/dL (0.00-1.30) 01/24/22 14:15 NT-Pro-B Natriuret Pep > 89377 pg/mL (0-450) H 01/24/22 14:15 Total Protein 6.8 g/dL (6.3-8.2) 01/24/22 14:15 Albumin 4.3 g/dL (3.9-5) 01/24/22 14:15 Albumin/Globulin Ratio 1.7 % 01/24/22 14:15 Lipase 25 units/L (13-60) 01/24/22 14:15 Nasal Screen MRSA (PCR) Negative (Negative) 01/25/22 Unknown HIV 1&2 Antibody Rapid Non react (Non React) 01/27/22 04:19 HIV P24 Antigen Non react (Non React) 01/27/22 04:19 Hawk/IV: Voiding Method Toilet Active Medications - Current Medications Current Medications: Generic Name Dose Route Start Last Admin Trade Name Freq PRN Reason Stop Dose Admin Acetaminophen 650 mg 01/24/22 17:19 Acetaminophen 325 Mg Tab PO Q4H PRN Pain MILD(1-3)/Fever >100.5/CARDENAS Albuterol 2.5 mg 01/24/22 17:19 Albuterol 2.5 Mg/3 Ml Nebu IH Q4HRT PRN Shortness Of Breath Aspirin 325 mg 01/25/22 10:00 01/28/22 09:03 Aspirin Ec 325 Mg Tab PO 325 mg QDAY ANTHONY Administration Atorvastatin Calcium 40 mg 01/24/22 22:00 01/27/22 21:55 Atorvastatin 40 Mg Tab PO 40 mg QHS ANTHONY Administration Clopidogrel Bisulfate 75 mg 01/25/22 10:00 01/28/22 09:03 Clopidogrel 75 Mg Tab PO 75 mg QDAY ANTHONY Administration Epoetin Guillermo-epbx 20,000 unit 01/27/22 09:21 01/28/22 11:48 Epoetin Guillermo-Epbx 20,000 Unit/1 Ml Vial IV 20,000 unit THAI PRN Administration hemodialysis Hydralazine HCl 50 mg 01/24/22 22:00 01/28/22 05:39 Hydralazine 25 Mg Tab PO 50 mg Q8HR ANTHONY Administration Sodium Chloride 100 mls @ 999 mls/hr 01/26/22 02:16 Nacl 0.9% IV THAI PRN Hypotension Insulin Human Lispro 0 unit 01/24/22 22:00 01/28/22 12:32 Insulin Lispro 100 Unit/Ml SUB-Q Not Given ACHS [facility] Protocol Isosorbide Mononitrate 30 mg 01/25/22 10:00 01/28/22 09:03 Isosorbide Mononitrate Er 30 Mg Tab PO 30 mg DAILY ANTHONY Administration Metoprolol Succinate 75 mg 01/24/22 18:00 01/27/22 17:30 Metoprolol Succinate Xl 25 Mg Tab PO 75 mg QPM ANTHONY Administration Morphine Sulfate 2 mg 01/24/22 17:19 01/25/22 03:12 Morphine 4 Mg/1 Ml Inj IV 2 mg Q14H PRN Administration Pain , Severe (7-10) Nifedipine 60 mg 01/25/22 10:00 01/28/22 09:03 Nifedipine Xl 60 Mg Tab PO 60 mg QDAY ANTHONY Administration Nitroglycerin 0.4 mg 01/24/22 17:21 Nitroglycerin 0.4 Mg Tab Subl SL Q5M PRN Chest Pain Ondansetron HCl 4 mg 01/24/22 17:19 Ondansetron 4 Mg/2 Ml Inj IV Q8H PRN Nausea And Vomiting Oxycodone/Acetaminophen 1 tab 01/24/22 17:19 01/28/22 11:45 Oxycodone /Acetaminophen 5-325mg Tab PO 1 tab Q6H PRN Administration Pain, Moderate (4-6) Pantoprazole Sodium 20 mg 01/26/22 14:00 01/28/22 09:03 Pantoprazole 20 Mg Tab PO 20 mg QDAC ANTHONY Administration Sodium Chloride 10 ml 01/24/22 22:00 01/28/22 09:03 Sodium Chloride 0.9% 10 Ml Flush Syringe IV 10 ml BID ANTHONY Administration Sodium Chloride 10 ml 01/24/22 17:19 Sodium Chloride 0.9% 10 Ml Flush Syringe IV PRN PRN LINE FLUSH Sucralfate 1 gm 01/26/22 14:00 01/28/22 09:03 Sucralfate 1 Gm Tab PO 1 gm TID ANTHONY Administration Nutrition/Malnutrition Assess - Dietary Evaluation Nutrition/Malnutrition Findings: Nutrition Notes Start: 01/25/22 13:59 Freq: Status: Active Protocol: Document 01/25/22 13:59 TEAGAN (Rec: 01/25/22 14:28 TEAGAN [id number]) Nutrition Notes Need for Assessment generated from: crystalizer Initial or Follow up Assessment Current Diagnosis CKD(stage I-IV),Coronary Artery Disease,Diabetes, Hypertension,Hyperlipidemia Other Pertinent Diagnosis ESRD+HD, HFrEF, Fluid Overload , Pulmonary Edema, CHF, OHS, Anemia. Current Diet Renal Diet (since D 01/24), D Suppl (since D 01/25). Labs/Tests 01/25: BUN 66, Crea 8.9, Glu 198, Ca 8.3. Pertinent Medications 01/25: Humalog 2U, others nutritionally unremarkable. 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 Weight Status Morbidly Obese Subjective/Other Information RD consult for skin risk assessment. Pt's PO intake of meals has been Poor (25-50%) but well tolerated, according to ADL notes. Iwill prescribe dietary supplements to compensate for poor or insufficient PO intake of meals during LOS. Pt is on Room Air, O2 saturation @ 95%, according to Physical Assessment History notes. Pt states having gain 8 lb body weight during the last week, according to History & Physical notes. Pt complains of RUQ & RLQ abdominal pain, according to History & Physical notes. Pt show no signs of concern for skin risk at the time, according to Physical Assessment History notes. Percent of energy/protein needs met: Prescribed Renal Diet provides for energy/protein needs (2, 072 Kcal/77 g) during LOS; additionally, Dietary Supplements will compensate for possible poor or insufficient PO intake of meals with 850 Kcal and 57 g of protein. Burn Absent Trauma Absent GI Symptoms Other Food Allergy No Skin Integrity/Comment Assessment WNL. Current % PO Poor (25-49%) Minimum of two criteria No Fluid Accumulation Moderate to Severe (severe) Reduced Provider Scribe Strength N/A (non-severe) Protein-Calorie Malnutrition N\A #1 Nutrition Diagnosis Predicted suboptimal energy intake Etiology Possibly secondary to missed HD, CHF. As Evidenced by Signs and Symptoms Pt's PO intake of meals has been Poor (25-50%) but well tolerated, according to ADL notes. Is patient on ventilator? No Is Patient Ambulatory and/or Out of Bed Yes REE-([place]. Jeor-ambulatory/OOB) [ 2207.075 NUTR.[id number]] Kcal/Kg value to use for calculation 12 Approximate Energy Requirements Using 1306 kcal/Kg Calculation Used for Recommendations Kcal/kg Additional Notes Protein: >1.2 g/Kg AdjBW; >97 g/day. Fluids: 1 ml/Kcal, or as per MD. Nutrition Intervention Change Diet Order: Continue Renal Diet as tolerated. Add Supplement/Snack (indicate name/kcal Start 8 fl oz Nepro w/ /protein ) CARBSTEADY: BID. Provides kCal: 850 Provides Protein (gm) 38 Goal #1 Compensate, through dietary supplementation, for possible poor or insufficient PO intake of meals during LOS. Goal #2 Adjust the dietary intervention to better serve Pt's needs and clinical conditions during LOS. Follow-Up By: 01/30/22 Additional Comments Continue monitoring food tolerance, %PO intake of meals , dietary supplements, and BM.
[2022-01-28 15:52] LABS: Calcium 8.7 mg/dL (8.4-10.2)
[2022-01-28 15:54] LABS: Hematocrit 20.9 % (30.3-42.9); Hemoglobin 7.2 gm/dl (10.1-14.3); Mean Corpuscular HGB Conc 35 % (30-34); Mean Corpuscular Volume 91 fl (79-97); Red Cell Distribution Width 15.7 % (13.2-15.2)
[2022-01-28 16:35] LABS: Platelet Count 98 K/mm3 (140-440)
[2022-01-28] MEDS: METOPROLOL SUCCINATE XL 25 MG TAB PO SCH (17:07)
[2022-01-28 18:34] LABS: Basophils % (Manual) 0 % (0.0-1.8); Eosinophils % (Manual) 0 % (0.0-4.3); Monocytes % (Manual) 0 % (0.0-7.3); Platelet Estimate Consistent w Auto; Total Cells Counted 50
[2022-01-29] MEDS: ONDANSETRON 4 MG/2 ML INJ IV PRN ×2 (00:45→13:10)
[2022-01-29] MEDS: hydrALAZINE 25 MG TAB PO SCH ×2 (06:22→14:08)
[2022-01-29] MEDS: INSULIN LISPRO 100 UNIT/ML SUB-Q SCH ×3 (08:31→17:22)
--- NOTE | 2022-01-29 10:01 | Progress Note ---
Subjective Principal diagnosis: cp,nstemi type 2 Interval history: Assessment and plan #End-stage kidney disease: Patient will continue to receive hemodialysis treatment 3 times a week on Wednesday schedule Dialysis nurse to monitor blood pressure and heart rate closely while ult rafiltration is done to make sure patient stays stable, Outpatient dialysis facility: [facility] dialysis facility #Access: Needs to be monitored during dialysis Will need follow-up with vascular in the outpatient setting #Chest pain patient also does have GERD symptoms started her on Protonix as well as Carafate Reviewed cardiology notes #Hypertension and volume: Stable at this time #Anemia in end-stage kidney disease: Monitor hemoglobin and hematocrit, started erythropoietin, PRBCs as needed Bone mineral disorder and secondary hyperparathyroidism; Monitor phosphorus binders as necessary goal phosphorus less than 5-1/2 #Diet and nutrition: Protein supplementation as well as multivitamins If there is any further question in regards to this patient renal care please contact me in [phone] If there are any renal related issues in regards to this patient please feel free to reach out without any hesitation at [phone] We'll continue to follow and make recommendation for renal standpoint. SUbjective: Patient was seen today for follow-up of multiple renal related issues No complaints of any chest pain pressure or shortness of breath Interdisciplinary notes that also reviewed Events of 24 hours vitals labs intake output medications were reviewed Past medical history: Reviewed Family history: Reviewed Social history: Reviewed Allergies: Reviewed Physical examination: Vitals: Reviewed HEENT: No pallor or icterus oral mucosa moist Neck: Supple no JVD no thyromegaly Chest: Bilateral clear to auscultation anteriorly Heart: Regular rate and rhythm S1-S2 heard no S3-S4 Abdomen: Soft nontender no voluntary guarding rigidity rebound Extremity: Dry skin less than 1+ peripheral edema Psychiatric: No evidence of agitation and aggression noted Dermatology: No petechial rashes Labs and x-rays: Reviewed from today Objective - Vital Signs Vital signs: Vital Signs - 12hr 01/28/22 01/28/22 01/29/22 22:29 23:12 02:00 Temperature 98.5 F Pulse Rate 63 63 Respiratory 18 Rate Blood Pressure 148/70 148/70 O2 Sat by Pulse 90 90 Oximetry 01/29/22 01/29/22 04:43 06:22 Temperature 98.6 F Pulse Rate 59 L 59 L Respiratory 18 Rate Blood Pressure 93/45 149/71 O2 Sat by Pulse 86 Oximetry - Lab 01/28/22 04:00 01/28/22 04:00 Most recent lab results Calcium 8.7 mg/dL (8.4-10.2) 01/28/22 04:00 Medications & Allergies - Medications Allergies/Adverse Reactions: Allergies No Known Allergies Allergy (Verified 01/24/22 12:50) Home Medications: Home Medications Medication Instructions Recorded Confirmed Last Taken Type Aspirin EC [Ecotrin] 325 mg PO QDAY 30 Days #30 tablet 01/21/22 01/26/22 Unknown Rx AtorvaSTATin [Lipitor] 40 mg PO QHS 01/21/22 01/26/22 Unknown History Clopidogrel [Plavix] 75 mg PO QDAY 90 Days #90 tab 01/21/22 01/26/22 Unknown Rx Hydralazine HCl 50 mg PO TID 01/21/22 01/26/22 Unknown History ISOSORBIDE MONOnitrate [Imdur ER] 30 mg PO DAILY 01/21/22 01/26/22 Unknown History Metoprolol Xl [Metoprolol 75 mg PO QPM 01/21/22 01/26/22 Unknown History SUCCINATE ER TAB] NIFEdipine [Nifedipine ER] 60 mg PO QDAY 01/21/22 01/26/22 Unknown History Nitroglycerin [Nitrostat] 0.4 mg SL Q5M PRN 30 Days #30 01/21/22 01/26/22 Unknown Rx tablet Active Medications: Generic Name Dose Route Start Last Admin Trade Name Freq PRN Reason Stop Dose Admin Acetaminophen 650 mg 01/24/22 17:19 Acetaminophen 325 Mg Tab PO Q4H PRN Pain MILD(1-3)/Fever >100.5/CARDENAS Albuterol 2.5 mg 01/24/22 17:19 Albuterol 2.5 Mg/3 Ml Nebu IH Q4HRT PRN Shortness Of Breath Aspirin 325 mg 01/25/22 10:00 01/28/22 09:03 Aspirin Ec 325 Mg Tab PO 325 mg QDAY [facility] Administration Atorvastatin Calcium 40 mg 01/24/22 22:00 01/28/22 23:13 Atorvastatin 40 Mg Tab PO 40 mg QHS ANTHONY Administration Clopidogrel Bisulfate 75 mg 01/25/22 10:00 01/28/22 09:03 Clopidogrel 75 Mg Tab PO 75 mg QDAY ANTHONY Administration Epoetin Guillermo-epbx 20,000 unit 01/27/22 09:21 01/28/22 11:48 Epoetin Guillermo-Epbx 20,000 Unit/1 Ml Vial IV 20,000 unit THAI PRN Administration hemodialysis Hydralazine HCl 50 mg 01/24/22 22:00 01/29/22 06:22 Hydralazine 25 Mg Tab PO 50 mg Q8HR [facility] Administration Sodium Chloride 100 mls @ 999 mls/hr 01/26/22 02:16 Nacl 0.9% IV THAI PRN Hypotension Insulin Human Lispro 0 unit 01/24/22 22:00 01/29/22 08:31 Insulin Lispro 100 Unit/Ml SUB-Q Not Given ACHS [facility] Protocol Isosorbide Mononitrate 30 mg 01/25/22 10:00 01/28/22 09:03 Isosorbide Mononitrate Er 30 Mg Tab PO 30 mg DAILY [facility] Administration Metoprolol Succinate 75 mg 01/24/22 18:00 01/28/22 17:07 Metoprolol Succinate Xl 25 Mg Tab PO 75 mg QPM ANTHONY Administration Morphine Sulfate 2 mg 01/24/22 17:19 01/25/22 03:12 Morphine 4 Mg/1 Ml Inj IV 2 mg Q14H PRN Administration Pain , Severe (7-10) Nifedipine 60 mg 01/25/22 10:00 01/28/22 09:03 Nifedipine Xl 60 Mg Tab PO 60 mg QDAY [facility] Administration Nitroglycerin 0.4 mg 01/24/22 17:21 Nitroglycerin 0.4 Mg Tab Subl SL Q5M PRN Chest Pain Ondansetron HCl 4 mg 01/24/22 17:19 01/29/22 00:45 Ondansetron 4 Mg/2 Ml Inj IV 4 mg Q8H PRN Administration Nausea And Vomiting Oxycodone/Acetaminophen 1 tab 01/24/22 17:19 01/28/22 21:34 Oxycodone /Acetaminophen 5-325mg Tab PO 1 tab Q6H PRN Administration Pain, Moderate (4-6) Pantoprazole Sodium 20 mg 01/26/22 14:00 01/28/22 09:03 Pantoprazole 20 Mg Tab PO 20 mg QDAC ANTHONY Administration Sodium Chloride 10 ml 01/24/22 22:00 01/28/22 23:25 Sodium Chloride 0.9% 10 Ml Flush Syringe IV 10 ml BID ANTHONY Administration Sodium Chloride 10 ml 01/24/22 17:19 Sodium Chloride 0.9% 10 Ml Flush Syringe IV PRN PRN LINE FLUSH Sucralfate 1 gm 01/26/22 14:00 01/28/22 21:34 Sucralfate 1 Gm Tab PO 1 gm TID ANTHONY Administration
--- NOTE | 2022-01-29 11:22 | Discharge Summary ---
Providers - Providers Date of Admission: 01/24/22 17:19 Date of discharge: 01/29/22 Attending physician: AKHIL FINLEY MD 01/25/22 10:44 Consult to Physician [CONS] Routine Comment: Consulting Provider: BERTHA JAQUEZ Physician Instructions: Reason For Exam: CP 01/25/22 10:45 Consult to Physician [CONS] Routine Comment: Consulting Provider: MAYRA AGUILAR Physician Instructions: Reason For Exam: ESRD 01/27/22 08:51 Consult to Physician [CONS] Routine Comment: Consulting Provider: BILL FANG Physician Instructions: Reason For Exam: Pancytopenia Primary care physician: TIE BUCKER Hospitalization Reason for admission: Acute on chronic diastolic heart Condition: Stable Pertinent studies: Reviewed. Procedures: None. Hospital course: The patient is a 46 YO Female with ESRD on HD(T,R,Sa), Systolic CHF(EF35%), Obe sity, HTN, DM, HLD, Metabolic Syndrome, Noncompliance, CAD on DAPT presents to ED for evaluation. Patient reports "my chest feels tight". Patient states that she experienced a sudden onset of chest tightness while preparing to go to her routine dialysis center for dialysis today. Patient also acknowledges decreased exercise tolerance, noncompliance with low-sodium diet, orthopnea, paroxysmal nocturnal dyspnea, as well as 8 pound 8 weight gain over the past 1 week. EMS was notified and upon arrival the patient was found to be in distress and subsequent transported to [facility] for further care and evaluation of the aforementioned symptoms. The patient was seen and evaluated in the emergency department. All lab and imaging studies reviewed. Patient found to have a systolic blood pressure in the 160s, end-stage renal disease complicated by fluid overload, pulmonary edema, as well as clinical symptoms consistent with CHF decompensation. Patient admitted to medical floor and initiated on CHF protocol. Nephrology team consulted in ED for urgent dialysis. Cardiology was also consulted in the ED, the patient underwent goal-directed therapy with IV diuresis. Cardiology recommended the patient continue with medical management. Hematology/oncology was consulted due to pancytopenia. The patient received IV Ferrlecit 125 mg x 1. The patient will follow-up with [facility]. Patient expresses understanding. Patient is medically clear for discharge. Disposition: 01 HOME / SELF CARE / HOMELESS Final Discharge Diagnosis (Prints w/discharge instructions): Acute on chronic diastolic heart failure, pulmonary edema, costochondritis, hypertension, nonischemic cardiomyopathy, NSTEMI type II, chronic hypoxic respiratory failure, ESRD on hemodialysis, pancytopenia, anemia of chronic disease, obesity hypoventilation syndrome, morbid obesity. Time spent for discharge: 45 min Core Measure Documentation - Palliative Care Palliative Care/ Comfort Measures: Not Applicable - Core Measures Any of the following diagnoses?: heart failure - Heart Failure Discharge Requirements ABEBE/ARB for LVSD if EF <40%: No Reason for no ABEBE/ARB: Renal impairment Beta denisa at discharge: Yes Exam - Constitutional Vitals: Temp Pulse Resp BP Pulse Ox 98.6 F 59 L 18 149/71 96 01/29/22 04:43 01/29/22 06:22 01/29/22 04:43 01/29/22 06:22 01/29/22 10:00 General appearance: Present: no acute distress, well-nourished, obese - EENT Eyes: Present: PERRL, EOM intact ENT: hearing intact, clear oral mucosa, poor dentition - Neck Neck: Present: supple, normal ROM - Respiratory Respiratory effort: normal Respiratory: bilateral: diminished (On 2 L nasal cannula (baseline 2 L nasal cannula)) - Cardiovascular Rhythm: regular Heart Sounds: Present: S1 & S2 - Extremities Extremities: no ischemia, pulses intact, pulses symmetrical, No edema, normal temperature, normal color Peripheral Pulses: within normal limits - Abdominal General gastrointestinal: Present: soft, non-tender, non-distended, normal bowel sounds Female genitourinary: Present: deferred - Rectal Rectal Exam: deferred - Integumentary Integumentary: Present: clear, warm, dry - Musculoskeletal Musculoskeletal: strength equal bilaterally - Psychiatric Psychiatric: appropriate mood/affect, cooperative - Neurologic Neurologic: CNII-XII intact, moves all extremities - Allied Health Allied health notes reviewed: nursing Plan Activity: advance as tolerated Diet: low salt, renal Additional Instructions: The patient is a 46 YO Female with ESRD on HD(T,R,Sa), Systolic CHF(EF35%), Obesity, HTN, DM, HLD, Metabolic Syndrome, Noncompliance, CAD on DAPT presents to ED for evaluation. Patient reports "my chest feels tight". Patient states that she experienced a sudden onset of chest tightness while preparing to go to her routine dialysis center for dialysis today. Patient also acknowledges decreased exercise tolerance, noncompliance with low-sodium diet, orthopnea, paroxysmal nocturnal dyspnea, as well as 8 pound 8 weight gain over the past 1 week. EMS was notified and upon arrival the patient was found to be in distress and subsequent transported to [facility] for further care and evaluation of the aforementioned symptoms. The patient was seen and evaluated in the emergency department. All lab and imaging studies reviewed. Patient found to have a systolic blood pressure in the 160s, end-stage renal disease complicated by fluid overload, pulmonary edema, as well as clinical symptoms consistent with CHF decompensation. Patient admitted to medical floor and initiated on CHF protocol. Nephrology team consulted in ED for urgent dialysis. Cardiology was also consulted in the ED, the patient underwent goal- directed therapy with IV diuresis. Cardiology recommended the patient continue with medical management. Hematology/oncology was consulted due to pancytopenia. The patient received IV Ferrlecit 125 mg x 1. The patient will follow-up with hematology in the outpatient setting. Patient expresses understanding. Patient is medically clear for discharge. Care Plan Goals: Patient is medically cleared for discharge. Assessment: The patient is a 46 YO Female with ESRD on HD(T,R,Sa), Systolic CHF(EF35%), Obesity, HTN, DM, HLD, Metabolic Syndrome, Noncompliance, CAD on DAPT presents to ED for evaluation. Patient reports "my chest feels tight". Patient states that she experienced a sudden onset of chest tightness while preparing to go to her routine dialysis center for dialysis today. Patient also acknowledges decreased exercise tolerance, noncompliance with low-sodium diet, orthopnea, paroxysmal nocturnal dyspnea, as well as 8 pound 8 weight gain over the past 1 week. EMS was notified and upon arrival the patient was found to be in distress and subsequent transported to [facility] for further care and evaluation of the aforementioned symptoms. The patient was seen and evaluated in the emergency department. All lab and imaging studies reviewed. Patient found to have a systolic blood pressure in the 160s, end-stage renal disease complicated by fluid overload, pulmonary edema, as well as clinical symptoms consistent with CHF decompensation. Patient admitted to medical floor and initiated on CHF protocol. Nephrology team consulted in ED for urgent dialysis. Cardiology was also consulted in the ED, the patient underwent goal-directed therapy with IV diuresis. Cardiology recommended the patient continue with medical management. Hematology/oncology was consulted due to pancytopenia. The patient received IV Ferrlecit 125 mg x 1. The patient will follow-up with hematology in the outpatient setting. Patient expresses understanding. Patient is medically clear for discharge. Follow up with: PRIMARY MD KODY [Primary Care Provider] - 3-5 Days BRIAN VILLA MD [Staff Physician] - 7 Days ERNESTO MOLINA MD [Staff Physician] - 7 Days (Further workup for pancytopenia. )
[2022-01-29] MEDS: CLOPIDOGREL 75 MG TAB PO SCH (11:23)
[2022-01-29] MEDS: ASPIRIN EC 325 MG TAB PO SCH (11:23)
[2022-01-29] MEDS: NIFEdipine XL 60 MG TAB PO SCH (11:23)
[2022-01-29] MEDS: PANTOPRAZOLE 20 MG TAB PO SCH (11:28)
[2022-01-29] MEDS: SUCRALFATE 1 GM TAB PO SCH ×2 (11:28→14:08)
[2022-01-29 14:06] VITALS: BP 154/64
[2022-01-29] MEDS: oxyCODONE /ACETAMINOPHEN 5-325MG TAB PO PRN (16:45)
[2022-01-29 22:05] LABS: Albumin 4.1 g/dL (3.8-4.8); Gamma Globulin 1.3 g/dL (0.8-1.7)
--- NOTE | 2022-02-02 15:44 | Event Note ---
Date: 02/02/22 [id number] was scheduled with Dr. Stroud between the hours of [address] Eastern standard time[address] Dr[address] Stroud initially called at 2:37 PM; however, the hospitalist was in the middle of the code met that turned to a CODE BLUE. Dr. Stroud was notified of what was going on with a different patient, and she expressed understanding. The hospitalist returned her call at 3:41 PM and left a voicemail.
== END 2022-01-29 18:46 | disposition home or self-care (01) | DRG 280 ==
LOC: ED 12:34 → 3A 17:19
PROVIDERS: ADMIT Internal Medicine; ATTEND Student in an Organized Health Care Education/Training Program
PROC: 5A1D70Z Performance of Urinary Filtration, Intermittent, Less than 6 Hours Per Day (ICD-10-PCS; principal; 2022-01-26)
PROC: 5A1D70Z Performance of Urinary Filtration, Intermittent, Less than 6 Hours Per Day (ICD-10-PCS; 2022-01-28)
DX: I13.2 Hypertensive heart and chronic kidney disease with heart failure and with stage 5 chronic kidney disease, or end stage renal disease (principal); I21.A1 Myocardial infarction type 2; I50.33 Acute on chronic diastolic (congestive) heart failure; N18.6 End stage renal disease; E66.2 Morbid (severe) obesity with alveolar hypoventilation; N25.81 Secondary hyperparathyroidism of renal origin; D61.818 Other pancytopenia; J96.11 Chronic respiratory failure with hypoxia; Z68.41 Body mass index [BMI] 40.0-44.9, adult; E88.81 Metabolic syndrome and other insulin resistance; I25.10 Atherosclerotic heart disease of native coronary artery without angina pectoris; Z99.2 Dependence on renal dialysis; I16.0 Hypertensive urgency; M94.0 Chondrocostal junction syndrome [Tietze]; D63.1 Anemia in chronic kidney disease; E11.22 Type 2 diabetes mellitus with diabetic chronic kidney disease; I42.8 Other cardiomyopathies; Z79.82 Long term (current) use of aspirin; Z91.19 Patient's noncompliance with other medical treatment and regimen; Z83.3 Family history of diabetes mellitus; Z82.49 Family history of ischemic heart disease and other diseases of the circulatory system; Z71.3 Dietary counseling and surveillance; Z95.1 Presence of aortocoronary bypass graft; Z98.61 Coronary angioplasty status
CPT/HCPCS: 36415; 71045; 74176; 80048; 80053; 80061; 82962; 83615; 83690; 83880; 84165; 84484; 84703; 85007; 85025; 85045; 85520; 85610; 85730; 86038; 86140; 87641; 87806; 93005; 93970; 94640; 94760; 96365; 96366; 96375; 96376; G0378; J3490; Q9967; J0885; J1200; J1644; J1815; J2270; J2405; J2916

== ENCOUNTER 2022-02-03 11:15 | Emergency (ER) | payer MEDICARE ==
--- NOTE | 2022-02-03 12:43 | XRay Report ---
CHEST 1 VIEW 02/03/2022 12:15 PM INDICATION / CLINICAL INFORMATION: Chest Pain. COMPARISON: 01/24/2022 FINDINGS: SUPPORT DEVICES: None. HEART / MEDIASTINUM: Stable moderate cardiomegaly LUNGS / PLEURA: Bilateral pulmonary infiltrates or congestive changes have resolved. The lungs are ge nerally clear. No pleural effusion or pneumothorax. ADDITIONAL FINDINGS: No significant additional findings. IMPRESSION: 1. Cardiomegaly. Lungs clear. Signer Name: Brian Jeffery Jr, MD Signed: 02/03/2022 12:38 PM Workstation Name: [id number]
[2022-02-03 13:22] LABS: Basophils % (Auto) 0.7 % (0.0-1.8); Eosinophils # (Auto) 0.1 K/mm3 (0.0-0.4); Eosinophils % (Auto) 2.3 % (0.0-4.3); Hematocrit 21.2 % (30.3-42.9); Lymphocytes # (Auto) 0.4 K/mm3 (1.2-5.4); Lymphocytes % (Auto) 17.4 % (13.4-35.0); Mean Corpuscular HGB Conc 33 % (30-34); Mean Corpuscular Volume 92 fl (79-97); Monocytes # (Auto) 0.2 K/mm3 (0.0-0.8); Monocytes % (Auto) 7.5 % (0.0-7.3); Platelet Count 128 K/mm3 (140-440); Red Blood Count 2.31 M/mm3 (3.65-5.03); Red Cell Distribution Width 15.8 % (13.2-15.2)
[2022-02-03 13:35] LABS: INR 0.93 (0.87-1.13)
[2022-02-03 13:40] LABS: Alanine Aminotransferase 11 units/L (7-56); Albumin 4.1 g/dL (3.9-5); Blood Urea Nitrogen 60 mg/dL (7-17); Calcium 9.2 mg/dL (8.4-10.2); Hemolysis Index 212
[2022-02-03 13:48] LABS: BUN/Creatinine Ratio 5
--- NOTE | 2022-02-03 14:30 | Emergency Department Report ---
ED Chest Pain HPI - General Chief Complaint: Chest Pain Stated Complaint: CHEST PAIN PUI?: No Time Seen by Provider: 02/03/22 11:54 Source: patient, EMS Mode of arrival: Stretcher Limitations: No Limitations - History of Present Illness Initial Comments: PT ARRIVIGN FROM HOME, C/O CP AROUND 1000 AFTER TAKING MEDS, REPORTS WHEN TAKE METOPROLOL AND ISOSORBIBE CAUSES CP PER PT. EXTENSIVE CARDIAC HX. -: Gradual, hour(s) Onset: during rest, after eating Pain Location: substernal Pain Radiation: none Severity scale (0 -10): 2 Quality: tightness Consistency: intermittent Improves With: nitroglycerin re: denies: nausea, vomting, diaphoresis Other Symptoms: denies: cough, fever Treatments Prior to Arrival: aspirin, nitroglycerin - Related Data On Oral Contraceptives: No Home Medications Medication Instructions Recorded Confirmed Last Taken AtorvaSTATin [Lipitor] 40 mg PO QHS 01/21/22 01/26/22 Unknown Hydralazine HCl 50 mg PO TID 01/21/22 01/26/22 Unknown ISOSORBIDE MONOnitrate [Imdur ER] 30 mg PO DAILY 01/21/22 01/26/22 Unknown Metoprolol Xl [Metoprolol 75 mg PO QPM 01/21/22 01/26/22 Unknown SUCCINATE ER TAB] NIFEdipine [Nifedipine ER] 60 mg PO QDAY 01/21/22 01/26/22 Unknown Previous Rx's Medication Instructions Recorded Last Taken Type Aspirin EC [Ecotrin] 325 mg PO QDAY 30 Days #30 tablet 01/21/22 Unknown Rx Clopidogrel [Plavix] 75 mg PO QDAY 90 Days #90 tab 01/21/22 Unknown Rx Nitroglycerin [Nitrostat] 0.4 mg SL Q5M PRN 30 Days #30 01/21/22 Unknown Rx tablet Allergies Allergy/AdvReac Type Severity Reaction Status Date / Time No Known Allergies Allergy Verified 02/03/22 11:27 Heart Score - HEART Score History: Slightly suspicious EKG: Normal Age: 45-65 Risk factors: > 3 risk factors or hx of atherosclerotic disease Troponin: 1-3x normal limit HEART Score: 4 - EKG Read Time Time EKG Completed: 11:59 EKG Read Time: 11:59 - Critical Actions Critical Actions: 4-6 pts:12-16.6% risk of adverse cardiac event. Should be admitted ED Review of Systems ROS: Stated complaint: CHEST PAIN Other details as noted in HPI Constitutional: denies: chills, fever Eyes: denies: eye pain, eye discharge, vision change ENT: denies: ear pain, throat pain Respiratory: denies: cough, shortness of breath, wheezing Cardiovascular: denies: chest pain, palpitations Endocrine: no symptoms reported Gastrointestinal: denies: abdominal pain, nausea, diarrhea Genitourinary: denies: urgency, dysuria, discharge Musculoskeletal: denies: back pain, joint swelling, arthralgia Skin: denies: rash, lesions Neurological: denies: headache, weakness, paresthesias Psychiatric: denies: anxiety, depression Hematological/Lymphatic: denies: easy bleeding, easy bruising ED Past Medical Hx - Past Medical History Hx Hypertension: Yes Hx Congestive Heart Failure: Yes Hx Diabetes: Yes Hx Renal Disease: Yes (dialysis TTS) Hx HIV: No - Surgical History Additional Surgical History: dialysis cath right leg, left upper extremity fistula - Social History Smoking Status: Never Smoker - Medications Home Medications: Home Medications Medication Instructions Recorded Confirmed Last Taken Type Aspirin EC [Ecotrin] 325 mg PO QDAY 30 Days #30 tablet 01/21/22 01/26/22 Unknown Rx AtorvaSTATin [Lipitor] 40 mg PO QHS 01/21/22 01/26/22 Unknown History Clopidogrel [Plavix] 75 mg PO QDAY 90 Days #90 tab 01/21/22 01/26/22 Unknown Rx Hydralazine HCl 50 mg PO TID 01/21/22 01/26/22 Unknown History ISOSORBIDE MONOnitrate [Imdur ER] 30 mg PO DAILY 01/21/22 01/26/22 Unknown History Metoprolol Xl [Metoprolol 75 mg PO QPM 01/21/22 01/26/22 Unknown History SUCCINATE ER TAB] NIFEdipine [Nifedipine ER] 60 mg PO QDAY 01/21/22 01/26/22 Unknown History Nitroglycerin [Nitrostat] 0.4 mg SL Q5M PRN 30 Days #30 01/21/22 01/26/22 Unknown Rx tablet ED Physical Exam - General Limitations: No Limitations General appearance: alert, in no apparent distress, other (RIGHT SIDE STYROKE ) - Head Head exam: Present: atraumatic, normocephalic - Eye Eye exam: Present: normal appearance - ENT ENT exam: Present: mucous membranes moist - Neck Neck exam: Present: normal inspection - Respiratory Respiratory exam: Present: normal lung sounds bilaterally. Absent: respiratory distress - Cardiovascular Cardiovascular Exam: Present: regular rate, normal rhythm. Absent: systolic murmur, diastolic murmur, rubs, gallop - GI/Abdominal GI/Abdominal exam: Present: soft, normal bowel sounds - Extremities Exam Extremities exam: Present: normal inspection - Back Exam Back exam: Present: normal inspection - Neurological Exam Neurological exam: Present: alert, oriented X3 - Psychiatric Psychiatric exam: Present: normal affect, normal mood - Skin Skin exam: Present: warm, dry, intact, normal color. Absent: rash ED Course Vital Signs 02/03/22 02/03/22 02/03/22 11:24 11:52 12:30 Temperature 98.7 F Pulse Rate 67 65 Respiratory 14 13 Rate Blood Pressure 162/42 Blood Pressure 143/76 [Left] O2 Sat by Pulse 96 98 99 Oximetry BULL score - Bull Score Age > 65: (0) No Aspirin use within the Past 7 Days: (1) Yes 3 or more CAD Risk Factors: (0) No 2 or more Angina events in past 24 hrs: (0) No Known CAD with more than 50% Stenosis: (0) No Elevated Cardiac Markers: (0) No ST Deviation Greater than 0.5mm: (0) No BULL Score: 1 ED Medical Decision Making - Lab Data Result diagrams: 02/03/22 12:54 02/03/22 12:18 - EKG Data -: EKG Interpreted by N[facility] EKG shows normal: sinus rhythm - EKG Data When compared to previous EKG there are: no significant change - Radiology Data Radiology results: report reviewed, image reviewed - Medical Decision Making WORK UP SHOWED crf , CHORNIC, TROP IS UP BUT AROUND BASLINE Critical care attestation.: If time is entered above; I have spent that time in minutes in the direct care of this critically ill patient, excluding procedure time. ED Disposition Clinical Impression: Chest pain Disposition: 01 HOME / SELF CARE / HOMELESS Is pt being admited?: No Does the pt Need Aspirin: No Condition: Stable Instructions: Nonspecific Chest Pain, Adult
[2022-02-03 20:47] VITALS: BP 117/57
[2022-02-04 02:35] LABS: Chol/HDL Ratio 2.36 %; HDL Cholesterol 41 mg/dL (40-59); LDL Cholesterol,Direct 37 mg/dL (50-130)
--- NOTE | 2022-02-05 17:20 | Electrocardiograph Report ---
[facility] Test Date: 2022-02-03 Test Time: 11:59:15 Pat Name: MIMI HASTINGS Department: Room: Gender: F Medical Geneticist: BRENDA : 1975 Requested By: JEY HUGHES Order Number: [id number] Reading MD: Navya Duran Measurements Intervals [place] Rate: 65 P: 42 AK: 163 QRS: -19 QRSD: 128 T: 100 QT: 426 QTc: 445 Interpretive Statements Sinus rhythm Left anterior fascicular block Nonspecific ST segment abnormality Compared to ECG 01/24/2022 15:35:19 No significant change Electronically Signed On 02-05-2022 17:20:02 EDT by Navya Duran
== END 2022-02-03 20:00 | disposition home or self-care (01) ==
LOC: ED 11:15
DX: R07.9 Chest pain, unspecified (principal); I10 Essential (primary) hypertension; E11.9 Type 2 diabetes mellitus without complications
CPT/HCPCS: 36415; 71045; 80053; 80061; 82010; 82550; 83690; 83880; 84484; 85025; 85610; 86140; 93005; 99284

== ENCOUNTER 2022-02-10 23:11 | Emergency (ER) | payer MEDICARE ==
--- NOTE | 2022-02-11 00:15 | Emergency Department Report ---
ED Chest Pain HPI - General Chief Complaint: Chest Pain Stated Complaint: CHEST PAINS Time Seen by Provider: 02/10/22 23:55 Source: EMS Mode of arrival: Stretcher Limitations: No Limitations - History of Present Illness Initial Comments: 46-year-old female with h/o ESRD on dialysis MWF who present tonight with chest pain that started few hours ago. Last dialysis was on Wednesday 3 days ago she says. Taken a deep breath worsen her chest pain. No other modifying or associated factors. - Related Data Home Medications Medication Instructions Recorded Confirmed Last Taken AtorvaSTATin [Lipitor] 40 mg PO QHS 01/21/22 01/26/22 Unknown Hydralazine HCl 50 mg PO TID 01/21/22 01/26/22 Unknown ISOSORBIDE MONOnitrate [Imdur ER] 30 mg PO DAILY 01/21/22 01/26/22 Unknown Metoprolol Xl [Metoprolol 75 mg PO QPM 01/21/22 01/26/22 Unknown SUCCINATE ER TAB] NIFEdipine [Nifedipine ER] 60 mg PO QDAY 01/21/22 01/26/22 Unknown Previous Rx's Medication Instructions Recorded Last Taken Type Aspirin EC [Ecotrin] 325 mg PO QDAY 30 Days #30 tablet 01/21/22 Unknown Rx Clopidogrel [Plavix] 75 mg PO QDAY 90 Days #90 tab 01/21/22 Unknown Rx Nitroglycerin [Nitrostat] 0.4 mg SL Q5M PRN 30 Days #30 01/21/22 Unknown Rx tablet Allergies Allergy/AdvReac Type Severity Reaction Status Date / Time No Known Allergies Allergy Verified 02/03/22 11:27 Heart Score - HEART Score History: Slightly suspicious EKG: Non-specific Age: 45-65 Risk factors: 1-2 risk factors Troponin: < normal limit HEART Score: 3 - EKG Read Time Time EKG Completed: 23:34 EKG Read Time: 23:41 - Critical Actions Critical Actions: 0-3 pts:0.9-1.7%risk of adverse cardiac event.Candidate for discharge ED Review of Systems ROS: Stated complaint: CHEST PAINS Other details as noted in HPI Comment: All other systems reviewed and negative Cardiovascular: chest pain ED Past Medical Hx - Past Medical History Hx Hypertension: Yes Hx Congestive Heart Failure: Yes Hx Diabetes: Yes Hx Liver Disease: No Hx Renal Disease: Yes (dialysis ,[facility]) Hx HIV: No Additional medical history: CHF - Surgical History Additional Surgical History: dialysis cath right leg, left upper extremity fistula - Social History Smoking Status: Never Smoker - Medications Home Medications: Home Medications Medication Instructions Recorded Confirmed Last Taken Type Aspirin EC [Ecotrin] 325 mg PO QDAY 30 Days #30 tablet 01/21/22 01/26/22 Unknown Rx AtorvaSTATin [Lipitor] 40 mg PO QHS 01/21/22 01/26/22 Unknown History Clopidogrel [Plavix] 75 mg PO QDAY 90 Days #90 tab 01/21/22 01/26/22 Unknown Rx Hydralazine HCl 50 mg PO TID 01/21/22 01/26/22 Unknown History ISOSORBIDE MONOnitrate [Imdur ER] 30 mg PO DAILY 01/21/22 01/26/22 Unknown History Metoprolol Xl [Metoprolol 75 mg PO QPM 01/21/22 01/26/22 Unknown History SUCCINATE ER TAB] NIFEdipine [Nifedipine ER] 60 mg PO QDAY 01/21/22 01/26/22 Unknown History Nitroglycerin [Nitrostat] 0.4 mg SL Q5M PRN 30 Days #30 01/21/22 01/26/22 Unknown Rx tablet ED Physical Exam - General Limitations: No Limitations General appearance: alert, in no apparent distress - Head Head exam: Present: normal inspection - Eye Eye exam: Present: normal appearance Pupils: Present: normal accommodation - ENT ENT exam: Present: normal exam, normal orophraynx. Absent: mucous membranes moist - Neck Neck exam: Present: normal inspection, full ROM. Absent: tenderness - Respiratory Respiratory exam: Present: normal lung sounds bilaterally. Absent: respiratory distress, accessory muscle use - Cardiovascular Cardiovascular Exam: Present: regular rate, normal rhythm, normal heart sounds - GI/Abdominal GI/Abdominal exam: Present: soft, normal bowel sounds. Absent: distended, tenderness - Extremities Exam Extremities exam: Present: normal inspection, normal capillary refill. Absent: tenderness, pedal edema - Back Exam Back exam: Absent: tenderness - Neurological Exam Neurological exam: Present: alert, oriented X3 - Psychiatric Psychiatric exam: Present: normal affect, normal mood - Skin Skin exam: Present: warm, normal color ED Course Vital Signs 02/10/22 02/10/22 02/10/22 23:36 23:40 23:45 Temperature 99.0 F Pulse Rate 80 74 74 Respiratory 23 16 Rate Blood Pressure 150/77 145/65 O2 Sat by Pulse 99 94 91 Oximetry 02/11/22 02/11/22 02/11/22 00:01 00:15 00:31 Temperature Pulse Rate 73 73 71 Respiratory 23 21 22 Rate Blood Pressure 145/65 120/54 120/54 O2 Sat by Pulse 97 94 94 Oximetry 02/11/22 02/11/22 02/11/22 00:46 01:00 01:16 Temperature Pulse Rate 72 72 68 Respiratory 26 H 15 21 Rate Blood Pressure 120/54 120/54 O2 Sat by Pulse 93 96 98 Oximetry 02/11/22 02/11/22 02/11/22 01:30 01:46 02:00 Temperature Pulse Rate 71 71 70 Respiratory 22 25 H 26 H Rate Blood Pressure 120/54 120/54 120/54 O2 Sat by Pulse 87 84 84 Oximetry 02/11/22 02/11/22 02/11/22 02:16 02:30 02:46 Temperature Pulse Rate 70 67 68 Respiratory 16 20 19 Rate Blood Pressure 120/54 120/54 120/54 O2 Sat by Pulse 90 98 Oximetry 02/11/22 03:00 Temperature Pulse Rate 66 Respiratory 12 Rate Blood Pressure 120/54 O2 Sat by Pulse Oximetry BULL score - Bull Score Age > 65: (0) No Aspirin use within the Past 7 Days: (1) Yes 3 or more CAD Risk Factors: (0) No 2 or more Angina events in past 24 hrs: (0) No Known CAD with more than 50% Stenosis: (0) No Elevated Cardiac Markers: (0) No ST Deviation Greater than 0.5mm: (0) No BULL Score: 1 ED Medical Decision Making - Lab Data Result diagrams: 02/11/22 00:17 02/11/22 00:17 - EKG Data -: EKG Interpreted by [facility] EKG shows normal: sinus rhythm Rate: normal - EKG Data Interpretation: nonspecific ST-T wave faith 02/11/22 00:17 EKG shows normal sinus rhythm at a rate of 74 bpm with possible left atrial enlargement and LVH and this abnormal ECG. - Medical Decision Making Here with chest pain/pressure--differential could be but not limited to myocardial infarction, pulmonary embolism, costochondritis, anxiety, gastritis, GERD, pancreatitis, and or pyelonephritis--in order to rule out the above-- so will go ahead and order routine cardiopulmonary work-up that include troponin, EKG, chest x-ray, BNP, CKMB, and CBC, CMP and urinalysis for any correctable infectious process or electrolyte abnormality as a cause. Pt already given nitro 0.4 mg x 3 with some relief -- will continue to monitor this patient progress while waiting for the above labs - Lab reviewed and noted to be pancytopenic and anemia of chronic disease with BNP likely from the CKD. Also troponin is slightly elevated that seem to be chronic. BUN and creatinine is elevated at 46/7.6 mg/dL but with normal potassium of 4.1 mg/dL which seems to be better than this patient baseline. With patient improved chest pain she will be allowed to do her dialysis in the morning probably leave it out to the dialysis center. Critical care attestation.: If time is entered above; I have spent that time in minutes in the direct care of this critically ill patient, excluding procedure time. ED Disposition Clinical Impression: ESRD on dialysis, Non-cardiac chest pain Chest pain Qualifiers: Chest pain type: unspecified Qualified Code(s): R07.9 - Chest pain, unspecified Disposition: 01 HOME / SELF CARE / HOMELESS Is pt being admited?: No Does the pt Need Aspirin: No Condition: Stable Instructions: Nonspecific Chest Pain, Adult, Dialysis Additional Instructions: It is very important that you call and follow-up at your dialysis clinic this morning so you will be dialyzed as usual Please do not hesitate to call or return to emergency room if your symptoms worsen Call and follow-up with your primary doctor in the next 3 to 5 days for progress Referrals: [facility] [Referring] - 3-5 Days Time of Disposition: 05:32
[2022-02-11 00:38] LABS: Basophils % (Auto) 0.7 % (0.0-1.8); Eosinophils % (Auto) 1.3 % (0.0-4.3); Hematocrit 22.5 % (30.3-42.9); Hemoglobin 7.5 gm/dl (10.1-14.3); Lymphocytes # (Auto) 0.7 K/mm3 (1.2-5.4); Lymphocytes % (Auto) 26.6 % (13.4-35.0); Mean Corpuscular HGB Conc 33 % (30-34); Mean Corpuscular Volume 90 fl (79-97); Monocytes # (Auto) 0.2 K/mm3 (0.0-0.8); Monocytes % (Auto) 8.9 % (0.0-7.3); Platelet Count 122 K/mm3 (140-440); Red Cell Distribution Width 15.6 % (13.2-15.2)
[2022-02-11 00:47] LABS: INR 1.05 (0.87-1.13)
[2022-02-11 00:57] LABS: Albumin 4.1 g/dL (3.9-5); Calcium 9.1 mg/dL (8.4-10.2)
--- NOTE | 2022-02-11 01:44 | XRay Report ---
CHEST 1 VIEW INDICATION / CLINICAL INFORMATION: Chest Pain. COMPARISON: 02/03/2022 FINDINGS: SUPPORT DEVICES: None. HEART / MEDIASTINUM: Stable cardiomegaly. LUNGS / PLEURA: Mild pulmonary venous hypertension. The lungs are grossly clear. No pneumothorax. ADDITIONAL FINDINGS: No significant additional findings. IMPRESSION: 1. Stable cardiomegaly. 2. No acute pulmonary disease. Signer Name: Maribel Mancilla MD Signed: 02/11/2022 1:39 AM Workstation Name: [id number]
[2022-02-11 03:10] LABS: Chol/HDL Ratio 2.11 %; HDL Cholesterol 42 mg/dL (40-59); LDL Cholesterol,Direct 33 mg/dL (50-130)
[2022-02-11 08:42] VITALS: BP 111/51
--- NOTE | 2022-02-11 09:34 | Electrocardiograph Report ---
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
== END 2022-02-11 09:31 | disposition home or self-care (01) ==
LOC: ED 23:11
DX: R07.89 Other chest pain (principal); I13.2 Hypertensive heart and chronic kidney disease with heart failure and with stage 5 chronic kidney disease, or end stage renal disease; E11.22 Type 2 diabetes mellitus with diabetic chronic kidney disease; N18.6 End stage renal disease; I50.9 Heart failure, unspecified; Z99.2 Dependence on renal dialysis; Z79.899 Other long term (current) drug therapy
CPT/HCPCS: 36415; 71045; 80053; 80061; 83880; 84484; 85025; 85610; 85730; 93005; 99284